=== PATIENT | female | born 1945 | race Caucasian/White ===

== ENCOUNTER 2016-11-25 05:25 | Inpatient (IN) | payer MEDICARE, OTHER ==
[2016-11-20 11:47] LABS: BASOPHILS 0.4 %; BASOPHILS ABSOLUTE 0.03 10/3/uL (0.0-0.16); EOSINOPHILS ABSOLUTE 0.14 10/3/uL (0.0-0.53); IMMATURE GRANULOCYTES 0.3 %; IMMATURE GRANULOCYTES ABSOLUTE 0.02 10/3/uL (0.0-0.11); LYMPHOCYTES 16.5 %; LYMPHOCYTES ABSOLUTE 1.14 10/3/uL (0.67-4.30); MEAN CORPUS HGB CONC 32.4 g/dL (32.0-36.0); MEAN CORPUSCULAR HEMOGLOB 27.7 pg (26.0-34.0); MEAN PLATELET VOLUME 9.1 fL (9.2-13.0); MONOCYTES 7.5 %; MONOCYTES ABSOLUTE 0.52 10/3/uL (0.21-1.20); NEUTROPHILS 73.3 %; NEUTROPHILS ABSOLUTE 5.05 10/3/uL (2.02-8.40); PLATELET COUNT 278 10/3/uL (150-400); RBC DISTRIBUTION WIDTH 15.9 % (12.0-16.0); WHITE BLOOD CELLS 6.9 10/3/uL (4.5-10.5)
[2016-11-20 11:48] LABS: HEMATOCRIT 35.5 % (36.0-48.0); HEMOGLOBIN 11.5 g/dL (12.0-16.0); MANUAL DIFF NO %; MEAN CORPUSCULAR VOLUME 85.5 fL (80-100); RED CELL COUNT 4.15 10/6/uL (4.0-5.6)
[2016-11-20 11:53] LABS: INTERNATIONAL NORMAL RATI 1.1 UNITS (-); PROTIME (NOT ORD) 14.2 SEC (12.0-14.5)
[2016-11-20 11:54] LABS: PARTIAL THROMBO TIME 38.8 SEC (22.5-37.2)
[2016-11-20 12:02] LABS: CHLORIDE, SERUM 97 MMOL/L (96-112); CO2 (CARBON DIOXIDE) 27 MMOL/L (24-34); CREATININE 0.57 MG/DL (0.55-1.02); GFR AFRICAN AMERICAN 108 ML/MIN (>=60); GFR NON AFRICAN AMERICAN 93 ML/MIN (>=60); POTASSIUM, SERUM 3.9 MMOL/L (3.5-5.3); SGOT(AST) 29 U/L (5-40); SGPT(ALT) 31 U/L (5-65); SODIUM, SERUM 134 MMOL/L (135-148); TOTAL BILIRUBIN 0.5 MG/DL (0-1.2)
[2016-11-20 12:03] LABS: A/G RATIO 0.8 (0.7-1.9); ALBUMIN 3.2 G/DL (3.5-5.0); ALKALINE PHOSPHATASE 105 U/L (45-117); BUN (BLOOD UREA NITROGEN) 7 MG/DL (6-23); CALCIUM, SERUM 8.7 MG/DL (8.5-10.4); GLOBULIN 3.8 G/DL (2.5-4.1); GLUCOSE, SERUM 162 MG/DL (60-99)
[2016-11-20 13:37] LABS: ASCORBIC ACID (UR NOT ORDER) NEG (NEG); BILIRUBIN, URINE NEGATIVE (NEG); KETONE, URINE NEGATIVE (NEG); LEUKOCYTE ESTERASE(NOT OR NEG (NEG); WBC (NOT ORDERED) (RFLEX) 1 (0-5)
--- NOTE | ~2016-11-25 | CN ---
Consultation Report [facility] [address] [place]. [address] NAME: ROSAMARIA RIDER : 45 STATUS : ADM IN PAT#: [id number] AGE: 71 ADM/REG DATE : 11/25/16 MR#: [id number] REPORT SERV DATE: 12/03/16 DICTATED BY: LEXIE HOUSTON DATE: 12/03/16 REPORT STATUS : Draft TRANSCRIBED BY: MODL DATE: 12/03/16 INFECTIOUS DISEASE CONSULTATION DATE OF CONSULTATION: 12/03/2016 MICU bed #9. REFERRING PHYSICIAN: Dr. Don Chacko. REASON FOR CONSULTATION: Sepsis. HISTORY OF PRESENT ILLNESS: This is a 71-year-old female, who was admitted to the hospital on 11/25/2016, for a surgical therapy of a pancreatic carcinoma. On that day, she underwent a pancreaticoduodenectomy of Whipple type along with portal vein resection and reconstruction due to involvement of the tumor with the portal vein and also underwent splenectomy and placement of a feeding jejunostomy. On the postoperative day 1, the patient developed hypotension and elevated procalcitonin, and after blood, urine, and sputum cultures were obtained, she was started on empiric antibiotic therapy with vancomycin and Zosyn. Her white blood cell count increased to 31,000. She then improved. Her vancomycin was stopped on 11/28/2016. She continued on Zosyn. She then worsened again over the past couple of days with hypotension again on 11/30/2016, and a marked increase in her procalcitonin to 17.8 yesterday along with acute kidney injury and worsening bandemia again. She also has developed shock and required institution of pressors and has developed worsening respiratory status, requiring Vapotherm oxygen administration. She remains on the Zosyn. Radiologic workup is as outlined below. The patient herself could not really contribute much to the history. She does easily awaken to the exam and to questioning and follows simple commands but most of my questions about symptoms, she gives no answers to. She does still have some abdominal pain. Finally her chest x-ray is much worse this morning in the left hemithorax. PAST MEDICAL HISTORY: Notable for the pancreatic cancer as mentioned, she received neoadjuvant chemo radiation therapy preoperatively. Other medical problems include a history of thyroidectomy for thyroid cancer, hysterectomy, breast lumpectomy with radiation therapy, diverticulitis with eventual sigmoid colectomy, hypertension, and cholecystectomy. ALLERGIES: INCLUDE CEFUROXIME WHICH CAUSED A RASH IN THE PAST. SHE ALSO IS INTOLERANT OF MEDROL AND DEMEROL. PRESENT MEDICATIONS: In addition to the Zosyn include Duragesic patch, subcutaneous heparin, Synthroid, Reglan, Protonix, Levemir, and she is on TPN. SOCIAL HISTORY: The patient is . Has a remote smoking history. Otherwise unremarkable. FAMILY HISTORY: Notable for diabetes, coronary artery disease, hypertension, and heart Consultation Report [place] [id number] [place]. [address] NAME: ROSAMARIA RIDER : 45 STATUS : ADM IN [facility]#: [id number] AGE: 71 ADM/REG DATE : 11/25/16 MR#: [id number] REPORT SERV DATE: 12/03/16 DICTATED BY: LEXIE HOUSTON DATE: 12/03/16 REPORT STATUS : Draft TRANSCRIBED BY: BENJAMIN DATE: 12/03/16 disease. REVIEW OF SYSTEMS: As outlined above, otherwise negative or difficult to obtain. PHYSICAL EXAMINATION: VITAL SIGNS: This patient is presently afebrile. Blood pressure on both vasopressin and Levophed has been variable but it was in the 120 systolic range at present, pulse 118 to 140, she is on Vapotherm as mentioned. She weighs 64 kg. HEAD AND NECK: Oral cavity shows no thrush. Neck is supple. LUNGS: She has bronchial type breath sounds in the left posterior lung car without crackles and some rhonchi anteriorly. CARDIAC: Tachycardic. Regular. Normal S1, S2. No murmur, gallop, or rub. ABDOMEN: Shows a large wound with a VAC dressing and the jejunostomy tube. Bowel sounds are reduced. The abdomen is perhaps minimally distended and soft but she is tender throughout. EXTREMITIES: The patient has a PICC line covered by a dressing without surrounding inflammation. Her lower extremities show trace edema. SKIN: Without rash. LABORATORY STUDIES: White blood cell count today is 17.7 with 28% bands. Hemoglobin 9.9, platelets 194, and creatinine 1.41, yesterday albumin was 1.7, bilirubin was 5.0, increased alkaline phosphatase at 167, increased ALT 84, and AST 48, both decreased from prior values. A 11/27/2016, pre-albumin 10.2. Microbiology studies: Blood cultures from 11/26/2016, negative. Sputum culture grew moderate Klebsiella oxytoca which was fairly sensitive. A 11/03/2016, urinalysis is negative. Chest x-ray, as mentioned, yesterday the patient had an abdominal ultrasound which was a limited study based on her dressings and bowel gas but showed no evidence of biliary dilatation. IMPRESSION: This patient has a sepsis picture following Whipple procedure on 10/25/2016, which also included portal vein resection and reconstruction and splenectomy. This is despite ongoing Zosyn therapy since 11/26/2016. Obviously there are number of a possible sources of sepsis. She does seem quite tender on abdominal exam and have to be concerned about a postoperative intraabdominal complication such as a developing abscess or infected hematoma. She did require a lot of blood products for the surgery. Her left chest looks much worse on x-ray today and is suggestive, I think, of possible mucous plugging with lobar collapse but obviously, she could have a developing pneumonia. The patient is on TPN via a PICC line and is at risk for line sepsis. PLAN: 1. We will get blood cultures. 2. Broaden antibiotics to vancomycin, meropenem, and micafungin. 3. We will discuss possible CT scan of the abdomen and pelvis with Dr. Quintero and follow with you. Consultation Report [address] [address] NAME: ROSAMARIA RIDER : 45 STATUS : ADM IN [facility]#: [id number] AGE: 71 ADM/REG DATE : 11/25/16 MR#: [id number] REPORT SERV DATE: 12/03/16 DICTATED BY: LEXIE HOUSTON DATE: 12/03/16 REPORT STATUS : Draft TRANSCRIBED BY: BENJAMIN DATE: 12/03/16 CHARLOTTE/BENJAMIN Lexie Houston M.D. / [id number] CC: Lilo Turner Jr., M.D.
--- NOTE | ~2016-11-25 | CN ---
Consultation Report [facility] [address] [place]. [address] NAME: ROSAMARIA RIDER : 45 STATUS : ADM IN PAT#: [id number] AGE: 71 ADM/REG DATE : 11/25/16 MR#: [id number] REPORT SERV DATE: 12/02/16 DICTATED BY: TOAN BETANCUR DATE: 12/02/16 REPORT STATUS : Draft TRANSCRIBED BY: MODL DATE: 12/02/16 NEPHROLOGY CONSULT DATE OF CONSULTATION: Ms. Rider is a 71-year-old white female, admitted for resection of pancreatic adenocarcinoma on 11/25/[address] Quintero with a Whipple procedure. Intraoperatively, she had some bleeding and Vascular Surgery assisting with the surgery. Apparently, she had 9 units of packed red blood cells and 4 units of fresh frozen plasma given intraoperatively in her long procedure, and came off on epinephrine and vasopressin. She has done well since then. Got extubated on 11/28, taking p.o. 11/29 but on the , her blood pressure dropped and required some normal saline boluses and restarted the Levophed. Creatinine since the , has gone up from 0.6 to 0.9 yesterday and 1.43 today, oliguric. PAST MEDICAL HISTORY: Thyroid resection resulting in hypothyroidism in 1993, hysterectomy in 1981, lumpectomy for breast cancer in 2013 and colon resection in 2014, having had a cholecystectomy in 2006. MEDICAL PROBLEMS: Prior to hospitalization were, hypertension where she is on medications and hypothyroidism on treatment also. Prior to this surgery, she had some chemotherapy. Dr. Garnett supervised her care, but no radiation therapy. SOCIAL HISTORY: Strong tobacco history in the past, but quit several years back. She is . FAMILY HISTORY: Positive for colon cancer in her brother. ALLERGIES: SHE HAS AN ALLERGY TO CEFTIN, DEMEROL, AND MEDROL DOSEPAKS. MEDICATIONS: At home prior to hospitalization were, aspirin, carvedilol, Colace, Lasix, levothyroxine, Ativan, Prilosec, Zofran, MiraLAX, Compazine, and Senokot. PHYSICAL EXAMINATION: GENERAL: The patient is seen in MICU bed 9. VITAL SIGNS: Blood pressure 117/49, heart rate of 128, respirations 22, temperature 98.2. She is arousable, but slow to respond, and not doing any purposeful movements. NG tube, on low intermittent suction, on Vapotherm high-flow oxygen by nasal cannula 100% FiO2. LUNGS: Working hard to breathe. Decreased breath sounds at the bases, but otherwise unremarkable. CARDIOVASCULAR: Grade 2/6 systolic ejection murmur radiating to the abdomen. She is tachycardic. ABDOMEN: Tender to palpation, distended and bowel sounds are absent. EXTREMITIES: 2+ edema in the feet with sequential compression devices on. NEUROLOGICAL: Moving all four extremities, but poorly responsive and not following commands. Consultation Report [facility] [address] [address] NAME: ROSAMARIA RIDER : 45 STATUS : ADM IN [facility]#: [id number] AGE: 71 ADM/REG DATE : 11/25/16 MR#: [id number] REPORT SERV DATE: 12/02/16 DICTATED BY: TOAN BETANCUR DATE: 12/02/16 REPORT STATUS : Draft TRANSCRIBED BY: MODL DATE: 12/02/16 LAB: Shows sodium 142; potassium 4.6; chloride 111; CO2 of 25; BUN is 69; creatinine 1.43; blood sugar was 196 this morning, at noon it was 216; calcium was 8.0; albumin 1.7; magnesium 2.1; phosphorus 2.9. Elevated liver enzymes noted. SGOT of 48, SGPT of 84, both improved since surgery. Alkaline phos climbing at 167, last night it was 2.9. INR 1.5 with [place] [address], hemoglobin 10, hematocrit 31, platelet count 216,000. Blood gases this morning revealed a pH of 7.41, pCO2 of 26, PO2 of 97 on 100% Vapotherm. ASSESSMENT: 1. Acute kidney injury secondary to hypotension. Suspect all prerenal. Cannot rule out acute tubular necrosis. Ultrasound to rule out obstruction pending. No nephrotoxic agents given, and has had significant NG aspiration today consistent with an ileus. 2. Hypotension shock, on pressors. Suspect secondary to sepsis, but cannot rule out intraabdominal bleed. 3. Pancreatic adenocarcinoma, resected by Whipple procedure on 11/25, Dr. Quintero. 4. See past medical history. PLAN: Continue IV fluids. Pressors as needed. Continue TPN. We will discuss the case with Dr. Chacko, the customer experience specialist. Thank you for consultation. WARREN/BENJAMIN Toan Betancur M.D. / [id number] CC: Lilo Turner Jr., M.D.
--- NOTE | ~2016-11-25 | OP ---
Record Of Operation [facility] [address] [place]. [address] NAME: ROSAMARIA RIDER : 45 STATUS : ADM IN PAT#: [id number] AGE: 71 ADM/REG DATE : 11/25/16 MR#: [id number] REPORT SERV DATE: 11/26/16 DICTATED BY: TRU DOUGLAS JR. DATE: 11/25/16 REPORT STATUS : Draft TRANSCRIBED BY: MODL DATE: 11/25/16 DATE OF PROCEDURE: 11/25/2016 SURGEON: Tru Douglas MD RADIO ASSEMBLER: Talha Bella. PROCEDURES: Pancreaticoduodenectomy of the Whipple type; portal vein resection and reconstruction (Dr. Lozano), splenectomy, and feeding jejunostomy tube placement. PREOPERATIVE DIAGNOSIS: Carcinoma of the pancreas. POSTOPERATIVE DIAGNOSIS: Carcinoma of the pancreas. ANESTHESIA: General. INDICATIONS: This patient has had a diagnosis of carcinoma of the pancreas. It was locally advanced. She received neoadjuvant chemoradiation therapy with significant reduction in size of the tumor and apparent regression from the superior mesenteric vein. There was no evidence of any metastatic disease and exploration for resection was indicated. FINDINGS: On exploration of the abdomen, there were some adhesions. Within the abdomen, there was previous cholecystectomy. There was no evidence of any peritoneal or hepatic metastasis. There was inflammation and contraction in the area of the head of the pancreas. During the initial dissection, there was some firmness present at the distal common bile duct and biopsy confirmed adenocarcinoma. However, this was within the dissection field. Ultimately, clear plane was identified anterior to the portal and superior mesenteric veins and the resection proceeded after division of the pancreas at the neck. It was apparent that there was persistent adherence and involvement of the vein. Therefore, a resection of the superior mesenteric vein, splenic vein confluence, and portion of portal vein was undertaken. This was done in conjunction with Dr. Lozano and he also performed the reconstruction. This enabled resection of all gross tumor. The gross close margin was uncinate, but this was taken off the adventitia of the superior mesenteric artery. Frozen section of common bile duct and pancreatic margins were negative. Reconstruction was undertaken. Because the splenic vein was ligated and the spleen became congested, it was removed. The feeding J-tube was placed. No other significant findings were encountered. The patient did have significant blood loss from the procedure and did receive blood products with packed blood cells, FFP, and platelets. There did appear to be at least some coagulopathy at the conclusion of the procedure. The patient was taken to recovery room for further stabilization. DESCRIPTION OF PROCEDURE: With adequate general anesthesia, the patient was placed in supine position. The abdomen was then prepped and draped sterilely. A bilateral subcostal incision was made. The dissection was carried down sharply through the subcutaneous tissues. The fascia and peritoneum were opened. The peritoneal cavity was entered, and the above-noted findings were encountered. The gastroduodenal ligament was dissected to Record Of Operation [place] [id number] [place]. [address] NAME: ROSAMARIA RIDER : 45 STATUS : ADM IN PAT#: [id number] AGE: 71 ADM/REG DATE : 11/25/16 MR#: [id number] REPORT SERV DATE: 11/26/16 DICTATED BY: TRU DOUGLAS JR. DATE: 11/25/16 REPORT STATUS : Draft TRANSCRIBED BY: MODHiwot DATE: 11/25/16 identify the gastroduodenal artery. This was clamped and divided securing with looped suture ligatures of silk and then the clear plane was identified anterior to the portal vein. It was noted some tissue from the superior portion of the pancreas was biopsied to confirmed carcinoma. Then, the common bile duct was dissected and encircled with a loop. The gastrocolic omentum was divided, and the mesenteric branches were traced back to the SMV, where again a clear plane was identified. It was elected to proceed with a Whipple. The jejunum was divided distally to ligament of Treitz. This was done with a MAYDA-75. Then, the mesentery was clamped and divided to free up the proximal jejunum and the fourth portion of the duodenum. This was reflected to the patient's right side. Then, the gastrocolic tissues were divided up to greater curve of the stomach and the lesser curves material as well. The stomach was divided at the antral level. Then, the pancreas was divided at its neck. The common bile duct was divided as well. The specimen was reflected to the patient's right. Small branches were divided and secured with ligatures of silk and then there was apparent involvement of the vein, as it actually had some tearing, as attempts were made to reflect it off the vein. Therefore, the vein was controlled proximally and distally and the splenic vein was clamped and resection of this was undertaken. Remaining tissue in the uncinate region was dissected off the superior mesenteric artery and this was then removed as the specimen that was submitted to pathology as noted. Then, the portal vein reconstruction was performed. Bleeding was controlled with suture ligatures of silk as needed. Then, a rent in the transverse mesocolon was made, and the jejunum was brought up for the anastomoses. A pancreaticojejunostomy was created as an end-to-side fashion with an inner layer of interrupted 5-0 Prolene and outer layer of inverted 3-0 silk sutures. This was done over a 5-Egyptian pediatric feeding tube. A choledochojejunostomy was performed with a running 4-0 Prolene and then distal to this, the bowel was brought out through a separate defect in the mesocolon and a gastrojejunostomy was created with end-to-side anastomosis with inner running 3-0 Vicryl and outer interrupted 3-0 silk. The lesser curve side of the stomach was partially closed off. Then distal to this, a feeding J-tube was placed utilizing 16-Egyptian T-tube was placed. Feeding jejunostomy was secured with pursestring suture. It was brought out through the left-sided stab incision. The bowel was and the perineum was sutured with 3-0 silk. The tube was secured to the site with 2-0 nylon. Two #19 Antonio drains were left, one on the side of the hepatic space on the right and one from the left, it was left inferior to the pancreatic anastomosis as irrigated. Additional hemostasis was assured with Surgicel and Surgiflo. Then with the satisfactory hemostasis, stabilization of the patient, the wound was closed with two layers of running 3-0 PDS. [place] and an overlay negative pressure dressing. The patient left the operating room in critical condition. Estimated blood loss was 2750. She is to complete receiving FFP and platelets in the recovery room. Additionally during the procedure, the spleen was removed as noted. It was mobilized from its peritoneal attachments and hilar vessel was clamped, divided along the lesser short gastrics and these were also controlled with ligatures and suture ligatures of silk. JG/MODL Tru Douglas Record Of Operation [facility] [address] [place]. [address] NAME: ROSAMARIA RIDER : 45 STATUS : ADM IN PAT#: [id number] AGE: 71 ADM/REG DATE : 11/25/16 MR#: [id number] REPORT SERV DATE: 11/26/16 DICTATED BY: TRU DOUGLAS JR. DATE: 11/25/16 REPORT STATUS : Draft TRANSCRIBED BY: BENJAMIN DATE: 11/25/16 Lilo Centeno / [id number] CC: Lilo Turner Jr., M.D.
--- NOTE | ~2016-11-25 | CN ---
Consultation Report [facility] [address] [place]. [address] NAME: ROSAMARIA RIDER : 45 STATUS : ADM IN [facility]#: [id number] AGE: 71 ADM/REG DATE : 11/25/16 MR#: [id number] REPORT SERV DATE: 01/21/17 DICTATED BY: TANJA ACEVEDO DATE: 01/21/17 REPORT STATUS : Draft TRANSCRIBED BY: MODHiwot DATE: 01/21/17 CONSULTATION DATE OF CONSULTATION: 01/21/[address] Quintero. REASON FOR CONSULTATION: Medical management of this patient including managing hypothyroidism and abnormal TSH. HOSPITAL COURSE: Ms. Rosamaria Rider is a 71-year-old patient, who has been hospitalized for several weeks now. Her date of admission is actually 11/25/2016. She has been here since November and essentially it appears that she was admitted for Whipple's procedure of the pancreas for pancreatic cancer. She underwent Whipple surgery on 11/25/2016. The patient had a complicated course after that and ended up with acute respiratory failure and had to be intubated. The patient also went into septic shock, and acute renal failure, and acute hypoxic respiratory failure as stated above. The patient was given supportive care and stabilized and eventually extubated. The patient then appears to have improved since. Currently, the reason that I am being consulted is for medical management and also for abnormal TSH and thyroid swelling. The patient has had multiple issues and I will go ahead and enlist all her issues in my assessment and plan which is coming up. Right now, the patient seems to be quite comfortable. She is able to communicate some, even though she is somewhat lethargic. She denies any pain anywhere. She even denies abdominal pain. She does say that she has a little difficulty breathing and calls herself a mouth breather. However, she states that since she has had the procedure, namely thoracentesis with removal of some fluid from her lungs, her breathing is better today. All history was obtained either from [facility] system or some from family members too. At this time, review of systems is essentially negative for any pain anywhere, shortness of breath, nausea, vomiting. PAST MEDICAL HISTORY: Medical history so far is significant for: 1. History of pancreatic cancer, status post Whipple surgery, status post acute respiratory failure, for which the patient was intubated and then subsequently extubated. 2. History of recent septic shock, which is resolved. 3. Acute encephalopathy which somewhat continues to persist even now, but apparently seems to have improved. 4. Acute blood loss anemia from recent surgery, which is resolving at this time. 5. Also, bilateral breast cellulitis which is probably the source for her sepsis according to ID, for which she is on meropenem, vancomycin, and Dr. Houston ID specialist is following. Consultation Report [facility] [id number] [place]. [address] NAME: ROSAMARIA RIDER : 45 STATUS : ADM IN PAT#: [id number] AGE: 71 ADM/REG DATE : 11/25/16 MR#: [id number] REPORT SERV DATE: 01/21/17 DICTATED BY: TANJA ACEVEDO DATE: 01/21/17 REPORT STATUS : Draft TRANSCRIBED BY: BENJAMIN DATE: 01/21/17 HOME MEDICATIONS: At this time while in the hospital were noted and most significant one at this time include IV vancomycin, IV meropenem for sepsis and leukocytosis from likely breast cellulitis at this time. Blood cultures however have been negative. The source could also have been an abdominal source, could have also been urinary source. Urine cultures at this time are pending. The patient already is on levothyroxine 100 mcg via the feeding tube every day. The patient is also on cardiac medications like Coreg 6.25 mg via feeding tube twice a day. FAMILY HISTORY: Noted. SOCIAL HISTORY: The patient is a nonsmoker, nonalcoholic, no history of illicit drug use. Immediate family including and sisters who are at bedside. PHYSICAL EXAMINATION: GENERAL: On examination, the patient is lethargic, but able to be aroused and is able to answer some of my questions fairly appropriately. Please see above. VITAL SIGNS: Show that she is febrile with a temperature of 101 yesterday around the evening time, but then she is afebrile this morning. Her blood pressure is 107/56, pulse is about 96 per minute, and respiratory rate about 20 per minute. NECK: On exam, the patient does have swelling in the neck area and other than an enlarged thyroid causing neck swelling, I could not appreciate any JVD. CARDIOVASCULAR SYSTEM: S1, S2 appreciated. Tachycardia noted. I could not appreciate any murmurs or rubs. RESPIRATORY SYSTEM: Essentially clear lungs, but poor air entry noted to lung bases probably from poor respiratory effort. I could not appreciate any rales or rhonchi that were significant. ABDOMEN: The patient has had extensive abdominal surgery. The patient has a J-tube for feeding in place and is getting tube feeds currently. The patient also has right-sided drain in place probably from a recent drainage of an abdominal abscess. Bowel sounds are sluggish, but appreciated. Other than that, there is no other significant guarding in the abdominal area. Overall, abdomen is tender, so deep palpation was not attempted. EXTREMITIES: Bilateral 1+ pedal edema noted. Also, was noted left upper extremity swelling. LABORATORY DATA: Her labs at this time showed that her sodium is 131, potassium is now at 3.9, BUN is 12, creatinine is 0.3. WBC count is 25.5, hemoglobin 7.7, hematocrit 22.4, and platelet count of 431. Procalcitonin is elevated at 0.6. Albumin is low. CT scan of the neck shows thyroid nodules. ASSESSMENT AND PLAN: My assessment and plan is as follows. At this time, my assessment is chronic hypothyroidism from previous MUNROE ablation of the thyroid for thyroid cancer in the past according to family-I am not sure if the abnormal TSH that is found today on 01/21/2017 with TSH being 35.3 is true lab value, hence we will repeat TSH, free T3 and T4. Even if Consultation Report [address] [place]. [address] NAME: ROSAMARIA RIDER : 45 STATUS : ADM IN [facility]#: [id number] AGE: 71 ADM/REG DATE : 11/25/16 MR#: [id number] REPORT SERV DATE: 01/21/17 DICTATED BY: TANJA ACEVEDO DATE: 01/21/17 REPORT STATUS : Draft TRANSCRIBED BY: MODL DATE: 01/21/17 TSH is abnormal, we will very slowly increase levothyroxine and probably keep her on 125 mcg a day at this time as the patient has high metabolic demand at this time. She has septic with tachycardia and other comorbidities, hence drastic increase in levothyroxine is not advisable at this time. 1. Sepsis from questionable breast abscess bilaterally, ID is following. The patient is on IV Merrem and vancomycin. Blood cultures so far is negative. Urine culture is pending. 2. Anasarca from decreased albumin or hypoalbuminemia from very poor nutrition-the patient is on tube feeds right now. 3. History of pancreatic cancer, status post Whipple procedure and other extensive abdominal surgery after a complicated Whipple's. The patient had to have vascular surgery for venous bypass in the abdominal area, had to have a J-tube for feeding purposes and also has right-sided drain in place probably to drain an abscess at this time, which is not draining anymore. Dr. Quintero, the surgeon is the primary on this case. 4. Acute encephalopathy from all above issues-we will follow as it looks like this is resolving at this time. We will follow the patient. Thank you for the consult. CONNOR/NIHARIKAL Tanja Acevedo M.D. / [id number] CC: Lilo Turner Jr., M.D.
--- NOTE | ~2016-11-25 | IDS ---
Interim Discharge Summary [facility] [address] [place]. [address] NAME: ROSAMARIA RIDER : 45 STATUS : ADM IN PAT#: [id number] AGE: 71 ADM/REG DATE : 11/25/16 MR#: [id number] REPORT SERV DATE: 12/06/16 DICTATED BY: TEO CHACKO DATE: 12/06/16 REPORT STATUS : Draft TRANSCRIBED BY: MODL DATE: 12/06/16 ADMISSION DATE: 11/25/2016 DISCHARGE DATE: INTERIM DIAGNOSES: 1. Pancreatic cancer status post Whipple surgery on 11/25/2016. 2. Acute hypoxic respiratory failure. 3. Septic shock. 4. Acute renal failure. 5. Acute encephalopathy. 6. Type 2 diabetes. 7. Acute blood loss anemia. ICU COURSE: Please see the dictated H and P for full patient presentation and history. BRIEF SUMMARY: The patient is a 71-year-old female with past medical history of pancreatic cancer, who underwent a Whipple surgery by Dr. Quintero on 11/25/2016, which was complicated by erosion into the portal vein, and significant bleeding during the surgery. The patient was then transferred postoperatively, intubated on vasopressors in the MICU, and on Dr. Quintero's service on 11/25/2016. We were then consulted for medical management at that time. The patient was weaned off the ventilator and vasopressors, and was extubated, and then I took over care of the patient on 12/02/2016. Since I took over care for her at the beginning of the week, her hospital course this week has been complicated by acute hypoxic respiratory failure, septic shock, acute renal failure, and acute encephalopathy. 1. Acute hypoxic respiratory failure. The patient initially did well post extubation. However, at the beginning of the week, on 12/02/2016, the patient started having a decline in her respiratory status. Her chest x-ray at that time was showing low lung volumes, and significant atelectasis. She also had worsening mentation at that time, she had a very poor cough, was very weak, and all of these likely were and are continuing to contribute to her respiratory failure. She has been on Vapotherm all week, and still remains at high FiO2 and high flow on that, and had a very tenuous respiratory status. We are doing an aggressive pulmonary toilet with vibration percussion as well as EzPAP, incentive spirometry as much as she will participate with her mental status. She has had a very low threshold to intubate, and will do so should her respiratory status decline further. Today, her chest x-ray looks like she had some worsening pulmonary edema, so I am going to give her some diuresis today as well. She remains critically ill from a respiratory standpoint, and again could decline, suddenly require intubation. 2. Septic shock. For most of the week, the patient was on both Levophed and vasopressin. Likely, this was secondary to septic shock from an intraabdominal source. We repeated a CT scan several days ago it showed several fluid collections likely representing anastomotic leaks with infection, and the patient had three MADISYN drains placed on 12/04/2016 by Interventional Radiology. Following placement of the MADISYN drains, she has had improvement in her shock, has been able to be weaned off both of her vasopressors as of today. She remains on empiric antibiotics and currently is growing abundant gram- negative rods. Her surgical cultures; ID follows along and is helping manage her Interim Discharge Summary [address] [address] NAME: ROSAMARIA RIDER : 45 STATUS : ADM IN [facility]#: [id number] AGE: 71 ADM/REG DATE : 11/25/16 MR#: [id number] REPORT SERV DATE: 12/06/16 DICTATED BY: TEO CHACKO DATE: 12/06/16 REPORT STATUS : Draft TRANSCRIBED BY: MODL DATE: 12/06/16 antibiotics, and she appreciates their insistence and will follow up on her surgical cultures. 3. Acute renal failure. Renal has been following and assisting in her management. The patient developed acute renal failure back at the beginning of the week, likely secondary to her shock. She has managed to avoid dialysis and has good urine output, and the creatinine has returned back to baseline. They continue to follow along with us as well. 4. Acute encephalopathy. The patient had waxing and waning of her mental status all week, likely this represents delirium secondary to her sepsis. We continue to monitor this, currently she is not on any medication for that as she has not been agitated at all. Currently, she is protecting her airway, but should her mental status decline further again, I would have a low threshold to intubate the patient. 5. The patient remains critically ill, and on the Surgery Service. We continue to follow along from a critical care standpoint and assist with management. The oncoming president [place] tomorrow we will take over in consultation. Please call if you have any questions. DAVIDSON/BENJAMIN Teo Chacko MD / [id number] CC: Lilo Turner Jr., M.D.
--- NOTE | ~2016-11-25 | DS ---
Discharge Summary [facility] [address] [place]. [address] NAME: ROSAMARIA RIDER : 45 STATUS : DIS IN PAT#: [id number] AGE: 71 ADM/REG DATE : 11/25/16 MR#: [id number] REPORT SERV DATE: 01/29/17 DICTATED BY: TRU DOUGLAS JR. DATE: 01/28/17 REPORT STATUS : Draft TRANSCRIBED BY: MODHiwot DATE: 01/28/17 ADMISSION DATE: 11/25/2016 DISCHARGE DATE: 01/28/2017 DIAGNOSES: 1. Pancreatic carcinoma. 2. Type 2 diabetes mellitus. 3. Acute kidney injury. 4. Hyponatremia. 5. Abdominal abscess. 6. Hypothyroidism. 7. Cellulitis. DISPOSITION: [facility] FOLLOWUP: Followup appointment with Dr. Douglas. DISCHARGE MEDICATIONS: Listed in the discharge MAR. PROCEDURES DURING ADMISSION: 1. Pancreaticoduodenectomy of the Whipple type with portal vein reconstruction 11/25/2016. 2. Multiple drain placements. HISTORY AND HOSPITAL COURSE: This is a 71-year-old female. She had a history of a locally advanced carcinoma of pancreas. She was treated with neoadjuvant chemoradiation therapy. She did have an acceptable response and it was felt that she had gone from unresectable to a potential resectable tumor. She is admitted for surgery and underwent exploration. She did have a large tumor. She did require portal vein resection, and she had reconstruction with Dr. Lozano. Her postoperative course was remarkable for hypotension, acute blood loss anemia for which required transfusion of blood products, platelets. She did have stabilization in the ICU and then after several days was able to be extubated and have her hemodynamic support decreased. Pathology did show residual carcinoma but negative margins, and all nodes were negative. She then did develop requirement for NG tube because of gastroparesis and gastric distention and ultimately, she developed intraabdominal fluid collection which required percutaneous drainage and IV antibiotics placement. This ultimately was confirmed to be secondary to leak from the J-tube site. J-tube was replaced, and this ceased the start of the origin of the leak and ultimately this was able to be completely drained and removed. She had again some acute kidney injury but her renal function improved without need for dialysis. She then did develop mild encephalopathy which actually responded to intensification of her hypothyroid replacement, and she actually was found to have an elevated TSH which was improved. Then within the last week, she developed cellulitis of the chest wall which improved with systemic antibiotics. There was no evidence of any abscess, and she was maintained on TPN initially. With the problems of the J-tube, she was not able tolerate J-tube feedings but was able to tolerate a diet with nutritional supplements at the time of discharge. She is also participating in physical therapy with plans to continue, lab work was acceptable and again all drains had been removed. The wound was healing well. Discharge Summary [address] [address] NAME: ROSAMARIA RIDER : 45 STATUS : DIS IN PAT#: [id number] AGE: 71 ADM/REG DATE : 11/25/16 MR#: [id number] REPORT SERV DATE: 01/29/17 DICTATED BY: TRU DOUGLAS JR. DATE: 01/28/17 REPORT STATUS : Draft TRANSCRIBED BY: BENJAMIN DATE: 01/28/17 Plan will be to follow up with me in approximately two weeks. We will maintain medications and plan oncologic followup in the future. DICTATED BY: Lilo Turner Jr./BENJAMIN Tru Douglas Jr., M.D. / [id number] CC: Lilo Turner Jr., M.D.
--- NOTE | ~2016-11-25 | OP ---
Record Of Operation [facility] [address] [place]. [address] NAME: ROSAMARIA RIDER : 45 STATUS : ADM IN PAT#: [id number] AGE: 71 ADM/REG DATE : 11/25/16 MR#: [id number] REPORT SERV DATE: 11/30/16 DICTATED BY: NINO LOZANO DATE: 11/29/16 REPORT STATUS : Draft TRANSCRIBED BY: MODL DATE: 11/29/16 DATE OF PROCEDURE: 11/25/2016 PREPROCEDURE DIAGNOSIS: Pancreatic cancer. POSTOPERATIVE DIAGNOSIS: Pancreatic cancer. PROCEDURE PERFORMED: 1. Whipple procedure (David Quintero M.D.). 2. Ligation of the proximal portal vein, distal superior mesenteric vein, distal splenic vein with 6 mm PTFE, superior mesenteric vein to portal vein bypass. CO-SURGEON/CONSULT: Nino Lozano M.D. ANESTHESIA: General. COMPLICATIONS: None. INDICATION FOR PROCEDURE: Secondary to this 71-year-old female found to be undergoing a Whipple procedure by Dr. David Quintero with compromise of the portal vein and distal superior mesenteric vein and distal splenic vein secondary to tumor. Vascular consultation was called for by Dr. Quintero and I was available for intraoperative consultation. After scrubbing into the operation, Dr. Quintero caught me upon the region of concerns and anatomy in the operation that was already in process. It was clear that the tumor was involved in the confluence between the superior mesenteric vein and the splenic vein leading into the portal vein. Secondary to this, the anterior aspect of the splenic vein was opened and bleeding was controlled with a small clamp. It was felt that this vessel was divided by ligating the structure in a running continuous stitch after this from the portal and superior mesenteric vein. With this controlled, attention was then brought down to the distal superior mesenteric vein which was dissected free from the tumor as well as the portal vein. Clamps were then placed and then the veins were then divided leaving the last portion of the Whipple excision to be completed by Dr. Quintero. At this point, the tumor was out of away, bleeding was controlled with clamps, and it was felt that a bypass was likely in order. Despite mobilization, the veins were not able to be brought too close enough together to perform an anastomosis without tension. Therefore, a 6 mm PTFE graft was then brought on to the field beveled and was then attached to the portal vein with a 6-0 Prolene on a running continuous stitch. The graft was then looped and then brought back to the superior mesenteric vein and this was then attached end-to-end anastomosis with again 6-0 Prolene. With this completed, the anastomosis was found and there was excellent flow through the bypasses by Doppler assessment and the valve was then decompressed significantly and returned to more normal state. At this point, there was no further bleeding from the splenic vein. The vascular reconstruction was completed, and at this point, Dr. Quintero returned to the operating room for completion of the remainder of the Whipple procedure. Please see his note for complete information regarding this operation. Record Of Operation [address] [place]. [address] NAME: ROSAMARIA RIDER : 45 STATUS : ADM IN PAT#: [id number] AGE: 71 ADM/REG DATE : 11/25/16 MR#: [id number] REPORT SERV DATE: 11/30/16 DICTATED BY: NINO LOZANO DATE: 11/29/16 REPORT STATUS : Draft TRANSCRIBED BY: BENJAMIN DATE: 11/29/16 CL/BENJAMIN Nino Lozano M.D. / [id number] CC: Lilo Turner Jr., M.D.
--- NOTE | ~2016-11-25 | CN ---
Consultation Report [facility] [address] [place]. [address] NAME: ROSAMARIA RIDER : 45 STATUS : ADM IN PAT#: [id number] AGE: 71 ADM/REG DATE : 11/25/16 MR#: [id number] REPORT SERV DATE: 11/25/16 DICTATED BY: ISAK ONEIL DATE: 11/25/16 REPORT STATUS : Draft TRANSCRIBED BY: MODL DATE: 11/25/16 CONSULTATION DATE OF CONSULTATION: 11/25/2016 HISTORY OF PRESENT ILLNESS: This is a 71-year-old patient, whom I was asked to see by Dr. Quintero for postoperative critical care management. 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 She underwent ERCP, had a stent placed, and then had a port placed by Dr. Quintero on 05/31 and is currently status post chemotherapy. She was thought to have a resectable tumor since it was shown that it had decreased in size by CT scan and went to the OR today for a Whipple procedure. 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 Hemoglobin was as low as 6.0. She was then further observed in the recovery unit and bleeding continued and that is where the platelets were given. She remains on the ventilator and is on vasopressin and epinephrine and currently is being transported to the unit for further care. ALLERGIES: HER ALLERGIES ARE TO STEROIDS, DEMEROL, CEFTIN, AND MEDROL. MEDICATIONS: Her medications at home are carvedilol, Prilosec, Lasix, Zofran, Ativan, enteric-coated aspirin, levothyroxine, Colace, senna, MiraLAX, and Compazine. PAST MEDICAL HISTORY: 1. Thyroidectomy for thyroid cancer, now currently on Synthroid. 2. Status post hysterectomy. 3. Status post right breast lumpectomy, followed by XRT by radiation therapy. 4. Diverticulitis that was recurrent and eventual sigmoid colectomy that was done in 2014. 5. Hypertension. 6. Status post cholecystectomy. 7. Status post bunionectomy. 8. History of severe constipation and recent admission for stercoral ulcer, in 10/2016. FAMILY HISTORY: Remarkable for diabetes, coronary artery disease, hypertension, and stroke. . Her father of heart disease and there is a very strong family history of CHF as well as diabetes mellitus. SOCIAL HISTORY: She is . Lives at home with her family and has had a remote history of smoking at least a pack a day x12 years. The patient has also history of lower extremity DVT, that is remote. REVIEW OF SYSTEMS: Could not be obtained from the patient since she is orally intubated and sedated. Consultation Report [facility] [address] [place]. [address] NAME: ROSAMARIA RIDER : 45 STATUS : ADM IN [facility]#: [id number] AGE: 71 ADM/REG DATE : 11/25/16 MR#: [id number] REPORT SERV DATE: 11/25/16 DICTATED BY: ISAK ONEIL DATE: 11/25/16 REPORT STATUS : Draft TRANSCRIBED BY: BENJAMIN DATE: 11/25/16 PHYSICAL EXAMINATION: VITAL SIGNS: Current vital signs, blood pressure by arterial line is 104/64, heart rate is 90, respiratory rate is 27. GENERAL: The patient appears pale. She has a Marcelo Hugger in place. SKIN: Cool to touch. HEENT: Pupils are sluggishly reactive. Sclerae anicteric. Conjunctivae are pale. Nasal mucosa is within normal limits. Oral mucosa is intubated with an OG tube. She has a right internal jugular triple-lumen catheter, left subclavian port, left radial A-line. LUNGS: Diminished, but without wheezing or crackles. CARDIAC: Reveals a regular rate and rhythm with no significant murmurs. BREASTS: Symmetrical. ABDOMEN: Obese with a transverse abdominal scar with a MADISYN drain in place as well as a wound VAC in place. No bowel sounds are heard. RECTAL: Deferred. GENITAL: Deferred. [place] is in place. EXTREMITIES: Without cyanosis, clubbing. There is trace edema. NEUROLOGIC: Limited to sedation, and currently is not able to be evaluated. DIAGNOSTIC DATA: Chest x-ray shows good placement of the endotracheal tube and central line without evidence of pneumothorax. White cell count is 20,000, hemoglobin 10, hematocrit 30, platelet count is 24,000. INR is 2.1. Sodium 151, potassium 4.4, chloride 104, bicarb 33, BUN 7, creatinine 0.84, blood sugar 156, magnesium 1.6. ABG shows a pH of 7.28, a pCO2 of 29, a pO2 of 479, and bicarbonate of 13. ASSESSMENT AND PLAN: This is a 71-year-old patient with recent diagnosis of pancreatic head tumor, status post ERCP, stent placement, chemotherapy and now Whipple with a finding of invasion of tumor into the portal vein, which resulted in bleeding during the surgery necessitating blood, fresh frozen plasma, and platelet transfusion. The patient is in critical condition, remains on epinephrine and Levophed. The plan will be to transfer the patient to the ICU, check serial H and H's, and lab work throughout the night. We will check a lactic acid level, cortisol level, an ABG again. Overall, the patient's condition is critical and she is at risk for acute kidney injury, further bleeding and DIC. She currently is in hemorrhagic shock and will require close monitoring throughout the night. Prognosis is extremely guarded and her care will involve close vasoactive manipulation, volume resuscitation, frequent ventilator manipulation, hemodynamic assessment, neurologic monitoring and treatment. So, the patient currently is in circulatory shock at risk for hepatic failure, renal failure, and respiratory failure. Total critical care time for this patient was one hour, starting at 04:00 p.m. to 05:00 p.m., total time is 60 minutes. /MODL Consultation Report [address] [address] NAME: ROSAMARIA RIDER : 45 STATUS : ADM IN [facility]#: [id number] AGE: 71 ADM/REG DATE : 11/25/16 MR#: [id number] REPORT SERV DATE: 11/25/16 DICTATED BY: ISAK ONEIL DATE: 11/25/16 REPORT STATUS : Draft TRANSCRIBED BY: BENJAMIN DATE: 11/25/16 Isak Oneil M.D. / [id number] CC: David Lilo Quintero Jr., M.D.
[~2016-11-25 05:25] MED LIST: ASAB PO; ATV1 PO; AUG875 PO; BENTYL20 PO; CALTRA600D PO; COMP10B PO; COREG12 PO; COREG6 PO; DSS PO; EASY IRON PO; FLONASE NAS; FLORASTOR250 MG PO; HALF81 PO; HYOMAX-SL0.125 MG PO; KLOR-CON 1010 MEQ PO; L20 PO; LEVOTHYROXIN100 MCG PO; MIRALAX POWDER1 PKT PO; NORCO1 TAB PO; PCET PO; PENTOXIL400 MG PO; PR25 PO; PRILO PO; PRILOSEC40 MG PO; SENTAB PO; SYN075 PO; SYN1 PO; VITE PO; ZOFRAN ODT4 MG PO; ZOFRANODT8 PO
[2016-11-25 11:49] LABS: BE (BASE EXCESS) -11.2 MEQ/L (0 +/- 2.5); CARBOXYHEMOGLOBIN 1.1 % (0-3); HCO3 (ACTUAL BICARBONATE) 14.6 MEQ/L (23-27); HEMOBLOGIN CONTENT 7.5 G/DL (12-16); INSTRUMENT SERIAL # 11843; METHEMOGLOBIN 0.8 % (0-3); O2 CONTENT 11.3 VOL% (18-24); PCO2 (CO2 TENSION) 32 MMHG (35-45); PO2 (O2 TENSION) 380 MMHG (79-93); SAMPLE Arterial; pH 7.27 (7.37-7.43)
[2016-11-25 13:57] LABS: BE (BASE EXCESS) -6.2 MEQ/L (0 +/- 2.5); CARBOXYHEMOGLOBIN 0.3 % (0-3); HCO3 (ACTUAL BICARBONATE) 19.8 MEQ/L (23-27); HEMOBLOGIN CONTENT 12.1 G/DL (12-16); INSTRUMENT SERIAL # 11843; METHEMOGLOBIN 0.6 % (0-3); O2 CONTENT 17.9 VOL% (18-24); PCO2 (CO2 TENSION) 41 MMHG (35-45); PO2 (O2 TENSION) 464 MMHG (79-93); SAMPLE Arterial; pH 7.31 (7.37-7.43)
[2016-11-25 14:25] LABS: HEMATOCRIT 37.7 % (36.0-48.0)
[2016-11-25 14:31] LABS: BE (BASE EXCESS) -6.2 MEQ/L (0 +/- 2.5); CARBOXYHEMOGLOBIN 0.3 % (0-3); HCO3 (ACTUAL BICARBONATE) 19.8 MEQ/L (23-27); HEMOBLOGIN CONTENT 12.1 G/DL (12-16); INSTRUMENT SERIAL # 11843; METHEMOGLOBIN 0.6 % (0-3); O2 CONTENT 17.9 VOL% (18-24); PCO2 (CO2 TENSION) 41 MMHG (35-45); PO2 (O2 TENSION) 464 MMHG (79-93); SAMPLE Arterial; pH 7.31 (7.37-7.43)
[2016-11-25 16:13] LABS: INSTRUMENT SERIAL # 11843; PCO2 (CO2 TENSION) 29 MMHG (35-45); pH 7.28 (7.37-7.43)
[2016-11-25 16:14] LABS: BE (BASE EXCESS) -12.1 MEQ/L (0 +/- 2.5); CARBOXYHEMOGLOBIN 0.3 % (0-3); HCO3 (ACTUAL BICARBONATE) 13.1 MEQ/L (23-27); HEMOBLOGIN CONTENT 14.1 G/DL (12-16); METHEMOGLOBIN 0.5 % (0-3); MODE CMV; O2 CONTENT 20.8 VOL% (18-24); OPERATOR ID 19104; PO2 (O2 TENSION) 479 MMHG (79-93); SAMPLE Arterial; TIDAL VOLUME 500 ML
[2016-11-25 16:40] LABS: BASOPHILS 0 %; BASOPHILS ABSOLUTE 0.01 10/3/uL (0.0-0.16); EOSINOPHILS 0 %; EOSINOPHILS ABSOLUTE 0.01 10/3/uL (0.0-0.53); HEMOGLOBIN 10.8 g/dL (12.0-16.0); IMMATURE GRANULOCYTES 0.6 %; IMMATURE GRANULOCYTES ABSOLUTE 0.13 10/3/uL (0.0-0.11); LYMPHOCYTES ABSOLUTE 0.63 10/3/uL (0.67-4.30); MEAN CORPUSCULAR HEMOGLOB 29.8 pg (26.0-34.0); MEAN PLATELET VOLUME 8.6 fL (9.2-13.0); MONOCYTES 7.6 %; MONOCYTES ABSOLUTE 1.58 10/3/uL (0.21-1.20); NEUTROPHILS 88.8 %; RBC DISTRIBUTION WIDTH 14.1 % (12.0-16.0); RED CELL COUNT 3.63 10/6/uL (4.0-5.6)
[2016-11-25 16:49] LABS: BUN (BLOOD UREA NITROGEN) 7 MG/DL (6-23); CHLORIDE, SERUM 104 MMOL/L (96-112); CREATININE 0.84 MG/DL (0.55-1.02); GFR AFRICAN AMERICAN 81 ML/MIN (>=60); GFR NON AFRICAN AMERICAN 70 ML/MIN (>=60); GLUCOSE, SERUM 156 MG/DL (60-99); POTASSIUM, SERUM 4.4 MMOL/L (3.5-5.3)
[2016-11-25 16:51] LABS: CALCIUM, SERUM 6.8 MG/DL (8.5-10.4); CO2 (CARBON DIOXIDE) 33 MMOL/L (24-34); SODIUM, SERUM 151 MMOL/L (135-148)
[2016-11-25 16:55] LABS: INTERNATIONAL NORMAL RATI 2.1 UNITS (-); PARTIAL THROMBO TIME 44.5 SEC (22.5-37.2)
[2016-11-25 16:57] LABS: PROTIME (NOT ORD) 23.1 SEC (12.0-14.5)
[2016-11-25 17:16] LABS: HEMATOCRIT 30.5 % (36.0-48.0); MEAN CORPUS HGB CONC 35.4 g/dL (32.0-36.0); PLATELET COUNT 24 10/3/uL (150-400); RBC MORPHOLOGY NORM (NORMAL); WHITE BLOOD CELLS 20.7 10/3/uL (4.5-10.5)
[2016-11-25 17:17] LABS: MANUAL DIFF NO %
[2016-11-25 18:57] LABS: MEAN CORPUS HGB CONC 34.7 g/dL (32.0-36.0); MEAN CORPUSCULAR HEMOGLOB 29.2 pg (26.0-34.0); MEAN PLATELET VOLUME 9.3 fL (9.2-13.0); RBC DISTRIBUTION WIDTH 14.1 % (12.0-16.0); WHITE BLOOD CELLS 15.8 10/3/uL (4.5-10.5)
[2016-11-25 18:59] LABS: HEMATOCRIT 21.6 % (36.0-48.0); HEMOGLOBIN 7.5 g/dL (12.0-16.0); MANUAL DIFF YES %; PLATELET COUNT 200 10/3/uL (150-400); RED CELL COUNT 2.57 10/6/uL (4.0-5.6)
[2016-11-25 19:04] LABS: INTERNATIONAL NORMAL RATI 1.5 UNITS (-)
[2016-11-25 19:05] LABS: FIBRINOGEN 213 MG/DL (230-462)
[2016-11-25 19:06] LABS: PARTIAL THROMBO TIME 35.3 SEC (22.5-37.2)
[2016-11-25 19:10] LABS: PROTIME (NOT ORD) 17.8 SEC (12.0-14.5)
[2016-11-25 19:21] LABS: BUN (BLOOD UREA NITROGEN) 9 MG/DL (6-23); CHLORIDE, SERUM 104 MMOL/L (96-112); CREATININE 1.21 MG/DL (0.55-1.02); GFR AFRICAN AMERICAN 52 ML/MIN (>=60); GFR NON AFRICAN AMERICAN 45 ML/MIN (>=60); GLUCOSE, SERUM 187 MG/DL (60-99); POTASSIUM, SERUM 3.8 MMOL/L (3.5-5.3); SODIUM, SERUM 149 MMOL/L (135-148)
[2016-11-25 19:23] LABS: CALCIUM, SERUM 8.2 MG/DL (8.5-10.4); CO2 (CARBON DIOXIDE) 20 MMOL/L (24-34); PHOSPHORUS, SERUM 4.4 MG/DL (2.5-4.5)
[2016-11-25 19:52] LABS: BAND NEUTROPHILS 41 %; LYMPHOCYTES 1 %; LYMPHOCYTES ABSOLUTE (CALC) 0.16 10/3/uL (0.67-4.30); MONOCYTES 2 %; MONOCYTES ABSOLUTE (CALC) 0.32 10/3/uL (0.21-1.20); NEUTROPHILS ABSOLUTE (CALC) 15.33 10/3/uL (2.02-8.40); PLATELET ESTIMATE ADQ (ADEQUATE); RBC MORPHOLOGY NORM (NORMAL); SEGMENTED NEUTROPHIL (0) 56 %; TOTAL NUCLEATED CELLS 100
[2016-11-26 01:43] LABS: BASOPHILS 0.1 %; BASOPHILS ABSOLUTE 0.01 10/3/uL (0.0-0.16); EOSINOPHILS 0 %; IMMATURE GRANULOCYTES 0.3 %; IMMATURE GRANULOCYTES ABSOLUTE 0.05 10/3/uL (0.0-0.11); LYMPHOCYTES 4.2 %; LYMPHOCYTES ABSOLUTE 0.68 10/3/uL (0.67-4.30); MEAN CORPUS HGB CONC 35.3 g/dL (32.0-36.0); MEAN CORPUSCULAR HEMOGLOB 29.4 pg (26.0-34.0); MEAN CORPUSCULAR VOLUME 83.3 fL (80-100); MEAN PLATELET VOLUME 9.9 fL (9.2-13.0); MONOCYTES 6.7 %; MONOCYTES ABSOLUTE 1.07 10/3/uL (0.21-1.20); NEUTROPHILS 88.7 %; PLATELET COUNT 234 10/3/uL (150-400); RBC DISTRIBUTION WIDTH 14.4 % (12.0-16.0)
[2016-11-26 01:47] LABS: HEMATOCRIT 27.5 % (36.0-48.0); HEMOGLOBIN 9.7 g/dL (12.0-16.0); MANUAL DIFF NO %
[2016-11-26 01:59] LABS: BUN (BLOOD UREA NITROGEN) 12 MG/DL (6-23); CALCIUM, SERUM 7.7 MG/DL (8.5-10.4); CHLORIDE, SERUM 108 MMOL/L (96-112); CO2 (CARBON DIOXIDE) 23 MMOL/L (24-34); CREATININE 1.37 MG/DL (0.55-1.02); GFR AFRICAN AMERICAN 45 ML/MIN (>=60); GFR NON AFRICAN AMERICAN 39 ML/MIN (>=60); POTASSIUM, SERUM 3.5 MMOL/L (3.5-5.3); SODIUM, SERUM 148 MMOL/L (135-148)
[2016-11-26 02:02] LABS: GLUCOSE, SERUM 229 MG/DL (60-99)
[2016-11-26 02:03] LABS: PHOSPHORUS, SERUM 2.6 MG/DL (2.5-4.5)
[2016-11-26 04:28] LABS: INSTRUMENT SERIAL # 8083
[2016-11-26 04:29] LABS: BE (BASE EXCESS) 1.3 MEQ/L (0 +/- 2.5); CARBOXYHEMOGLOBIN 0.2 % (0-3); HEMOBLOGIN CONTENT 10.2 G/DL (12-16); METHEMOGLOBIN 0.3 % (0-3); MODE CMV; O2 CONTENT 14.1 VOL% (18-24); PCO2 (CO2 TENSION) 36 MMHG (35-45); PO2 (O2 TENSION) 100 MMHG (79-93); SAMPLE Arterial; TIDAL VOLUME 550 ML; pH 7.46 (7.37-7.43)
[2016-11-26 05:25] LABS: INTERNATIONAL NORMAL RATI 1.5 UNITS (-); PARTIAL THROMBO TIME 34.5 SEC (22.5-37.2); PROTIME (NOT ORD) 17.7 SEC (12.0-14.5)
[2016-11-26 05:36] LABS: BUN (BLOOD UREA NITROGEN) 11 MG/DL (6-23); CALCIUM, SERUM 7.7 MG/DL (8.5-10.4); CHLORIDE, SERUM 106 MMOL/L (96-112); CO2 (CARBON DIOXIDE) 26 MMOL/L (24-34); CREATININE 1.08 MG/DL (0.55-1.02); GFR AFRICAN AMERICAN 60 ML/MIN (>=60); GFR NON AFRICAN AMERICAN 52 ML/MIN (>=60); GLUCOSE, SERUM 249 MG/DL (60-99); PHOSPHORUS, SERUM 2.7 MG/DL (2.5-4.5); POTASSIUM, SERUM 3.7 MMOL/L (3.5-5.3); SGOT(AST) 206 U/L (5-40); SGPT(ALT) 127 U/L (5-65); SODIUM, SERUM 146 MMOL/L (135-148); TOTAL PROTEIN 4.3 G/DL (6.0-8.5)
[2016-11-26 05:37] LABS: ALBUMIN 2.2 G/DL (3.5-5.0); ALKALINE PHOSPHATASE 54 U/L (45-117); BASOPHILS 0.1 %; BASOPHILS ABSOLUTE 0.01 10/3/uL (0.0-0.16); EOSINOPHILS 0 %; GLOBULIN 2.1 G/DL (2.5-4.1); HEMATOCRIT 27.2 % (36.0-48.0); HEMOGLOBIN 9.7 g/dL (12.0-16.0); IMMATURE GRANULOCYTES 0.3 %; IMMATURE GRANULOCYTES ABSOLUTE 0.05 10/3/uL (0.0-0.11); LYMPHOCYTES 5.3 %; LYMPHOCYTES ABSOLUTE 0.97 10/3/uL (0.67-4.30); MEAN CORPUS HGB CONC 35.7 g/dL (32.0-36.0); MEAN CORPUSCULAR HEMOGLOB 29.6 pg (26.0-34.0); MEAN CORPUSCULAR VOLUME 82.9 fL (80-100); MEAN PLATELET VOLUME 10.7 fL (9.2-13.0); MONOCYTES 7.7 %; MONOCYTES ABSOLUTE 1.41 10/3/uL (0.21-1.20); NEUTROPHILS 86.6 %; NEUTROPHILS ABSOLUTE 15.97 10/3/uL (2.02-8.40); PLATELET COUNT 233 10/3/uL (150-400); RBC DISTRIBUTION WIDTH 14.7 % (12.0-16.0); RED CELL COUNT 3.28 10/6/uL (4.0-5.6); TOTAL BILIRUBIN 1.4 MG/DL (0-1.2); WHITE BLOOD CELLS 18.4 10/3/uL (4.5-10.5)
[2016-11-26 05:39] LABS: MANUAL DIFF NO %
[2016-11-26 07:34] LABS: BE (BASE EXCESS) -8.2 MEQ/L (0 +/- 2.5); CARBOXYHEMOGLOBIN 0.3 % (0-3); HCO3 (ACTUAL BICARBONATE) 14.7 MEQ/L (23-27); HEMOBLOGIN CONTENT 8.4 G/DL (12-16); INSTRUMENT SERIAL # 11843; METHEMOGLOBIN 0.5 % (0-3); O2 CONTENT 12.2 VOL% (18-24); PCO2 (CO2 TENSION) 22 MMHG (35-45); PO2 (O2 TENSION) 258 MMHG (79-93); pH 7.44 (7.37-7.43)
[2016-11-26 07:35] LABS: SAMPLE Arterial; TIDAL VOLUME 500 ML
[2016-11-26 09:40] LABS: HEMATOCRIT 26.2 % (36.0-48.0); HEMOGLOBIN 9.5 g/dL (12.0-16.0)
[2016-11-26 09:52] LABS: BUN (BLOOD UREA NITROGEN) 13 MG/DL (6-23); CALCIUM, SERUM 7.7 MG/DL (8.5-10.4); CHLORIDE, SERUM 107 MMOL/L (96-112); CO2 (CARBON DIOXIDE) 28 MMOL/L (24-34); CREATININE 0.93 MG/DL (0.55-1.02); GFR AFRICAN AMERICAN 72 ML/MIN (>=60); GFR NON AFRICAN AMERICAN 62 ML/MIN (>=60); GLUCOSE, SERUM 218 MG/DL (60-99); PHOSPHORUS, SERUM 2.3 MG/DL (2.5-4.5); POTASSIUM, SERUM 3.8 MMOL/L (3.5-5.3); SODIUM, SERUM 145 MMOL/L (135-148)
[2016-11-26 12:18] LABS: HEMATOCRIT 26.2 % (36.0-48.0); HEMOGLOBIN 9.5 g/dL (12.0-16.0)
[2016-11-26 19:04] LABS: ALLENS TEST Pos; CARBOXYHEMOGLOBIN 0.8 % (0-3); HCO3 (ACTUAL BICARBONATE) 19.7 MEQ/L (23-27); INSTRUMENT SERIAL # 8083; METHEMOGLOBIN 0.4 % (0-3); O2 CONTENT 11.7 VOL% (18-24); OPERATOR ID 13715; PCO2 (CO2 TENSION) 30 MMHG (35-45); PO2 (O2 TENSION) 238 MMHG (79-93); SAMPLE Arterial; pH 7.43 (7.37-7.43)
[2016-11-26 20:18] LABS: HEMATOCRIT 26.3 % (36.0-48.0); HEMOGLOBIN 9.3 g/dL (12.0-16.0); MEAN CORPUS HGB CONC 35.4 g/dL (32.0-36.0); MEAN CORPUSCULAR HEMOGLOB 29.4 pg (26.0-34.0); MEAN CORPUSCULAR VOLUME 83.2 fL (80-100); MEAN PLATELET VOLUME 10.4 fL (9.2-13.0); PLATELET COUNT 197 10/3/uL (150-400); RBC DISTRIBUTION WIDTH 15.6 % (12.0-16.0); RED CELL COUNT 3.16 10/6/uL (4.0-5.6)
[2016-11-26 20:21] LABS: MANUAL DIFF YES %; WHITE BLOOD CELLS 27.1 10/3/uL (4.5-10.5)
[2016-11-26 20:34] LABS: BUN (BLOOD UREA NITROGEN) 18 MG/DL (6-23); CHLORIDE, SERUM 105 MMOL/L (96-112); CO2 (CARBON DIOXIDE) 31 MMOL/L (24-34); CREATININE 0.73 MG/DL (0.55-1.02); GFR AFRICAN AMERICAN 96 ML/MIN (>=60); GFR NON AFRICAN AMERICAN 83 ML/MIN (>=60); GLUCOSE, SERUM 158 MG/DL (60-99); PHOSPHORUS, SERUM 3.1 MG/DL (2.5-4.5); POTASSIUM, SERUM 3.7 MMOL/L (3.5-5.3); SODIUM, SERUM 142 MMOL/L (135-148)
[2016-11-26 20:44] LABS: BAND NEUTROPHILS 12 %; LYMPHOCYTES 7 %; MONOCYTES 3 %; MONOCYTES ABSOLUTE (CALC) 0.81 10/3/uL (0.21-1.20); NEUTROPHILS ABSOLUTE (CALC) 24.39 10/3/uL (2.02-8.40); PLATELET ESTIMATE ADQ (ADEQUATE); RBC MORPHOLOGY NORM (NORMAL); SEGMENTED NEUTROPHIL (0) 78 %; TOTAL NUCLEATED CELLS 100
[2016-11-26 22:23] LABS: ASCORBIC ACID (UR NOT ORDER) 40 (NEG); BILIRUBIN, URINE NEGATIVE (NEG); KETONE, URINE NEGATIVE (NEG); WBC (NOT ORDERED) (RFLEX) 3 (0-5)
[2016-11-26 22:24] LABS: LEUKOCYTE ESTERASE(NOT OR TRACE (NEG)
[2016-11-26 23:22] LABS: PROCALCITONIN 8.15 ng/mL (<0.5)
[2016-11-27 04:01] LABS: CARBOXYHEMOGLOBIN 0.5 % (0-3); HCO3 (ACTUAL BICARBONATE) 27.8 MEQ/L (23-27); INSTRUMENT SERIAL # 8083; METHEMOGLOBIN 0.3 % (0-3); PCO2 (CO2 TENSION) 38 MMHG (35-45); PO2 (O2 TENSION) 106 MMHG (79-93); pH 7.48 (7.37-7.43)
[2016-11-27 04:02] LABS: HEMOBLOGIN CONTENT 8.8 G/DL (12-16); MODE CMV; O2 CONTENT 12.2 VOL% (18-24); SAMPLE Arterial; TIDAL VOLUME 550 ML
[2016-11-27 04:16] LABS: INTERNATIONAL NORMAL RATI 1.3 UNITS (-); PROTIME (NOT ORD) 16.5 SEC (12.0-14.5)
[2016-11-27 04:17] LABS: HEMATOCRIT 25.1 % (36.0-48.0); HEMOGLOBIN 8.9 g/dL (12.0-16.0); MEAN CORPUS HGB CONC 35.5 g/dL (32.0-36.0); MEAN CORPUSCULAR HEMOGLOB 29.9 pg (26.0-34.0); MEAN CORPUSCULAR VOLUME 84.2 fL (80-100); MEAN PLATELET VOLUME 10.3 fL (9.2-13.0); PLATELET COUNT 188 10/3/uL (150-400); RBC DISTRIBUTION WIDTH 15.5 % (12.0-16.0); RED CELL COUNT 2.98 10/6/uL (4.0-5.6)
[2016-11-27 04:22] LABS: MANUAL DIFF YES %; WHITE BLOOD CELLS 31.1 10/3/uL (4.5-10.5)
[2016-11-27 04:31] LABS: ALBUMIN 2.1 G/DL (3.5-5.0); ALKALINE PHOSPHATASE 63 U/L (45-117); BUN (BLOOD UREA NITROGEN) 19 MG/DL (6-23); CALCIUM, SERUM 7.5 MG/DL (8.5-10.4); CHLORIDE, SERUM 108 MMOL/L (96-112); CO2 (CARBON DIOXIDE) 30 MMOL/L (24-34); GFR AFRICAN AMERICAN 101 ML/MIN (>=60); GFR NON AFRICAN AMERICAN 87 ML/MIN (>=60); GLOBULIN 2.2 G/DL (2.5-4.1); GLUCOSE, SERUM 142 MG/DL (60-99); POTASSIUM, SERUM 3.7 MMOL/L (3.5-5.3); PREALBUMIN 10.2 MG/DL (17.0-43.0); SGOT(AST) 860 U/L (5-40); SGPT(ALT) 695 U/L (5-65); SODIUM, SERUM 145 MMOL/L (135-148); TOTAL PROTEIN 4.3 G/DL (6.0-8.5)
[2016-11-27 04:38] LABS: TOTAL BILIRUBIN 0.9 MG/DL (0-1.2)
[2016-11-27 04:43] LABS: BAND NEUTROPHILS 2 %; LYMPHOCYTES 6 %; LYMPHOCYTES ABSOLUTE (CALC) 1.87 10/3/uL (0.67-4.30); MONOCYTES 1 %; MONOCYTES ABSOLUTE (CALC) 0.31 10/3/uL (0.21-1.20); NEUTROPHILS ABSOLUTE (CALC) 28.92 10/3/uL (2.02-8.40); PLATELET ESTIMATE ADQ (ADEQUATE); SEGMENTED NEUTROPHIL (0) 91 %; TOTAL NUCLEATED CELLS 100
[2016-11-27 13:59] LABS: HEMATOCRIT 24.2 % (36.0-48.0); HEMOGLOBIN 8.4 g/dL (12.0-16.0)
[2016-11-27 22:54] LABS: HEMATOCRIT 24.4 % (36.0-48.0); HEMOGLOBIN 8.2 g/dL (12.0-16.0)
[2016-11-28 04:05] LABS: HEMATOCRIT 24.8 % (36.0-48.0); HEMOGLOBIN 8.2 g/dL (12.0-16.0); MEAN CORPUSCULAR HEMOGLOB 29.7 pg (26.0-34.0); MEAN PLATELET VOLUME 10.6 fL (9.2-13.0); PLATELET COUNT 164 10/3/uL (150-400); RBC DISTRIBUTION WIDTH 15.7 % (12.0-16.0); RED CELL COUNT 2.76 10/6/uL (4.0-5.6)
[2016-11-28 04:06] LABS: MANUAL DIFF YES %; MEAN CORPUS HGB CONC 33.1 g/dL (32.0-36.0); MEAN CORPUSCULAR VOLUME 89.9 fL (80-100); WHITE BLOOD CELLS 30.3 10/3/uL (4.5-10.5)
[2016-11-28 04:24] LABS: A/G RATIO 0.8 (0.7-1.9); ALBUMIN 1.8 G/DL (3.5-5.0); BUN (BLOOD UREA NITROGEN) 21 MG/DL (6-23); CALCIUM, SERUM 7.7 MG/DL (8.5-10.4); CHLORIDE, SERUM 108 MMOL/L (96-112); CO2 (CARBON DIOXIDE) 29 MMOL/L (24-34); CREATININE 0.63 MG/DL (0.55-1.02); GFR AFRICAN AMERICAN 105 ML/MIN (>=60); GFR NON AFRICAN AMERICAN 90 ML/MIN (>=60); GLOBULIN 2.4 G/DL (2.5-4.1); GLUCOSE, SERUM 134 MG/DL (60-99); PHOSPHORUS, SERUM 2.6 MG/DL (2.5-4.5); POTASSIUM, SERUM 4.1 MMOL/L (3.5-5.3); SGOT(AST) 320 U/L (5-40); SGPT(ALT) 436 U/L (5-65); SODIUM, SERUM 145 MMOL/L (135-148); TOTAL BILIRUBIN 1.3 MG/DL (0-1.2); TOTAL PROTEIN 4.2 G/DL (6.0-8.5)
[2016-11-28 04:26] LABS: ALKALINE PHOSPHATASE 78 U/L (45-117); TRIGLYCERIDE 144 MG/DL (< 150)
[2016-11-28 04:29] LABS: BAND NEUTROPHILS 5 %; LYMPHOCYTES 5 %; LYMPHOCYTES ABSOLUTE (CALC) 1.52 10/3/uL (0.67-4.30); MONOCYTES 2 %; MONOCYTES ABSOLUTE (CALC) 0.61 10/3/uL (0.21-1.20); NEUTROPHILS ABSOLUTE (CALC) 28.18 10/3/uL (2.02-8.40); PLATELET ESTIMATE ADQ (ADEQUATE); RBC MORPHOLOGY NORM (NORMAL); SEGMENTED NEUTROPHIL (0) 88 %; TOTAL NUCLEATED CELLS 100
[2016-11-28 13:14] LABS: HEMOGLOBIN 8.3 g/dL (12.0-16.0)
[2016-11-29 05:32] LABS: BUN (BLOOD UREA NITROGEN) 22 MG/DL (6-23); CALCIUM, SERUM 7.5 MG/DL (8.5-10.4); CHLORIDE, SERUM 109 MMOL/L (96-112); CO2 (CARBON DIOXIDE) 30 MMOL/L (24-34); CREATININE 0.54 MG/DL (0.55-1.02); GFR AFRICAN AMERICAN 110 ML/MIN (>=60); GFR NON AFRICAN AMERICAN 95 ML/MIN (>=60); PHOSPHORUS, SERUM 2.1 MG/DL (2.5-4.5); POTASSIUM, SERUM 3.5 MMOL/L (3.5-5.3); SODIUM, SERUM 144 MMOL/L (135-148)
[2016-11-29 05:45] LABS: GLUCOSE, SERUM 131 MG/DL (60-99)
[2016-11-29 06:12] LABS: BASOPHILS 0.3 %; BASOPHILS ABSOLUTE 0.07 10/3/uL (0.0-0.16); EOSINOPHILS 2.7 %; EOSINOPHILS ABSOLUTE 0.58 10/3/uL (0.0-0.53); HEMATOCRIT 25.5 % (36.0-48.0); HEMOGLOBIN 8.4 g/dL (12.0-16.0); IMMATURE GRANULOCYTES 1.7 %; IMMATURE GRANULOCYTES ABSOLUTE 0.36 10/3/uL (0.0-0.11); LYMPHOCYTES 8.3 %; LYMPHOCYTES ABSOLUTE 1.78 10/3/uL (0.67-4.30); MEAN CORPUS HGB CONC 32.9 g/dL (32.0-36.0); MEAN CORPUSCULAR HEMOGLOB 30.2 pg (26.0-34.0); MEAN CORPUSCULAR VOLUME 91.7 fL (80-100); MEAN PLATELET VOLUME 10.1 fL (9.2-13.0); MONOCYTES 8.8 %; MONOCYTES ABSOLUTE 1.87 10/3/uL (0.21-1.20); NEUTROPHILS 78.2 %; NEUTROPHILS ABSOLUTE 16.69 10/3/uL (2.02-8.40); NUCLEATED RED BLOOD CELLS 0.6 /100WBC (0-0); PLATELET COUNT 189 10/3/uL (150-400); RBC DISTRIBUTION WIDTH 15.6 % (12.0-16.0); RED CELL COUNT 2.78 10/6/uL (4.0-5.6); WHITE BLOOD CELLS 21.4 10/3/uL (4.5-10.5)
[2016-11-29 06:15] LABS: MANUAL DIFF NO %
[2016-11-30 05:25] LABS: HEMOGLOBIN 9.8 g/dL (12.0-16.0); MEAN CORPUS HGB CONC 31.8 g/dL (32.0-36.0); MEAN CORPUSCULAR HEMOGLOB 29.3 pg (26.0-34.0); MEAN CORPUSCULAR VOLUME 92.2 fL (80-100); MEAN PLATELET VOLUME 10.1 fL (9.2-13.0); NUCLEATED RED BLOOD CELLS 0.7 /100WBC (0-0); PLATELET COUNT 234 10/3/uL (150-400); RBC DISTRIBUTION WIDTH 15.5 % (12.0-16.0); WHITE BLOOD CELLS 21.1 10/3/uL (4.5-10.5)
[2016-11-30 05:26] LABS: HEMATOCRIT 30.8 % (36.0-48.0); MANUAL DIFF YES %; RED CELL COUNT 3.34 10/6/uL (4.0-5.6)
[2016-11-30 05:30] LABS: ALBUMIN 1.9 G/DL (3.5-5.0); BUN (BLOOD UREA NITROGEN) 25 MG/DL (6-23); CALCIUM, SERUM 7.6 MG/DL (8.5-10.4); CHLORIDE, SERUM 107 MMOL/L (96-112); CO2 (CARBON DIOXIDE) 28 MMOL/L (24-34); GFR AFRICAN AMERICAN 106 ML/MIN (>=60); GFR NON AFRICAN AMERICAN 92 ML/MIN (>=60); PHOSPHORUS, SERUM 1.9 MG/DL (2.5-4.5); POTASSIUM, SERUM 3.3 MMOL/L (3.5-5.3); SGOT(AST) 72 U/L (5-40); SGPT(ALT) 199 U/L (5-65); SODIUM, SERUM 144 MMOL/L (135-148)
[2016-11-30 05:31] LABS: A/G RATIO 0.6 (0.7-1.9); ALKALINE PHOSPHATASE 122 U/L (45-117); GLOBULIN 3.3 G/DL (2.5-4.1); GLUCOSE, SERUM 202 MG/DL (60-99); TOTAL BILIRUBIN 1.9 MG/DL (0-1.2); TOTAL PROTEIN 5.2 G/DL (6.0-8.5)
[2016-11-30 05:53] LABS: BAND NEUTROPHILS 6 %; LYMPHOCYTES 3 %; LYMPHOCYTES ABSOLUTE (CALC) 0.63 10/3/uL (0.67-4.30); MONOCYTES 9 %; NEUTROPHILS ABSOLUTE (CALC) 18.57 10/3/uL (2.02-8.40); PLATELET ESTIMATE ADQ (ADEQUATE); RBC MORPHOLOGY NORM (NORMAL); SEGMENTED NEUTROPHIL (0) 82 %; TOTAL NUCLEATED CELLS 100
[2016-11-30 23:58] LABS: HEMATOCRIT 33.2 % (36.0-48.0); HEMOGLOBIN 10.6 g/dL (12.0-16.0)
[2016-12-01 05:02] LABS: HEMOGLOBIN 9.3 g/dL (12.0-16.0); MEAN CORPUSCULAR HEMOGLOB 29.2 pg (26.0-34.0); MEAN CORPUSCULAR VOLUME 91.2 fL (80-100); MEAN PLATELET VOLUME 10.3 fL (9.2-13.0); NUCLEATED RED BLOOD CELLS 0.9 /100WBC (0-0); PLATELET COUNT 241 10/3/uL (150-400); RBC DISTRIBUTION WIDTH 16.1 % (12.0-16.0); RED CELL COUNT 3.19 10/6/uL (4.0-5.6); WHITE BLOOD CELLS 22.7 10/3/uL (4.5-10.5)
[2016-12-01 05:04] LABS: CALCIUM, SERUM 7.5 MG/DL (8.5-10.4); CHLORIDE, SERUM 110 MMOL/L (96-112); CO2 (CARBON DIOXIDE) 26 MMOL/L (24-34); GFR AFRICAN AMERICAN 75 ML/MIN (>=60); GFR NON AFRICAN AMERICAN 64 ML/MIN (>=60); GLUCOSE, SERUM 226 MG/DL (60-99); SODIUM, SERUM 145 MMOL/L (135-148)
[2016-12-01 05:05] LABS: BUN (BLOOD UREA NITROGEN) 42 MG/DL (6-23)
[2016-12-01 05:07] LABS: HEMATOCRIT 29.1 % (36.0-48.0); MANUAL DIFF YES %
[2016-12-01 05:47] LABS: IMMATURE GRANS ABSOLUTE (CALC) 0.91 10/3/uL (0.0-0.11); LYMPHOCYTES 3 %; LYMPHOCYTES ABSOLUTE (CALC) 0.68 10/3/uL (0.67-4.30); METAMYELOCYTES 1 %; MONOCYTES 7 %; MONOCYTES ABSOLUTE (CALC) 1.59 10/3/uL (0.21-1.20); MYELOCYTES 3 %; NEUTROPHILS ABSOLUTE (CALC) 19.52 10/3/uL (2.02-8.40); TOTAL NUCLEATED CELLS 100
[2016-12-01 05:48] LABS: ANISOCYTOSIS 1+ (5-10/OIF) (0-5/OIF); BAND NEUTROPHILS 12 %; PLATELET ESTIMATE ADQ (ADEQUATE); RBC MORPHOLOGY ABN (NORMAL); SEGMENTED NEUTROPHIL (0) 74 %
[2016-12-01 06:19] LABS: PHOSPHORUS, SERUM 2.2 MG/DL (2.5-4.5)
[2016-12-02 01:29] LABS: ALLENS TEST Pos; BE (BASE EXCESS) -4.8 MEQ/L (0 +/- 2.5); CARBOXYHEMOGLOBIN 0.5 % (0-3); DEVICE NC; HCO3 (ACTUAL BICARBONATE) 18.5 MEQ/L (23-27); HEMOBLOGIN CONTENT 10.5 G/DL (12-16); INSTRUMENT SERIAL # 8083; METHEMOGLOBIN 0.2 % (0-3); O2 CONTENT 13.4 VOL% (18-24); OPERATOR ID 23712; PCO2 (CO2 TENSION) 29 MMHG (35-45); PO2 (O2 TENSION) 61 MMHG (79-93); SAMPLE Arterial; pH 7.43 (7.37-7.43)
[2016-12-02 01:46] LABS: INTERNATIONAL NORMAL RATI 1.5 UNITS (-); PARTIAL THROMBO TIME 34.9 SEC (22.5-37.2)
[2016-12-02 01:49] LABS: BASOPHILS 0.2 %; BASOPHILS ABSOLUTE 0.03 10/3/uL (0.0-0.16); EOSINOPHILS 0 %; HEMATOCRIT 31.8 % (36.0-48.0); HEMOGLOBIN 10.3 g/dL (12.0-16.0); IMMATURE GRANULOCYTES 0.5 %; LYMPHOCYTES 1.1 %; MEAN CORPUS HGB CONC 32.4 g/dL (32.0-36.0); MEAN CORPUSCULAR HEMOGLOB 29.5 pg (26.0-34.0); MEAN CORPUSCULAR VOLUME 91.1 fL (80-100); MEAN PLATELET VOLUME 11.6 fL (9.2-13.0); MONOCYTES 1.2 %; MONOCYTES ABSOLUTE 0.22 10/3/uL (0.21-1.20); NEUTROPHILS ABSOLUTE 18.33 10/3/uL (2.02-8.40); PLATELET COUNT 216 10/3/uL (150-400); RBC DISTRIBUTION WIDTH 16.6 % (12.0-16.0); RED CELL COUNT 3.49 10/6/uL (4.0-5.6); WHITE BLOOD CELLS 18.9 10/3/uL (4.5-10.5)
[2016-12-02 01:50] LABS: MANUAL DIFF NO %
[2016-12-02 01:55] LABS: A/G RATIO 0.5 (0.7-1.9); ALBUMIN 1.7 G/DL (3.5-5.0); CHLORIDE, SERUM 111 MMOL/L (96-112); CO2 (CARBON DIOXIDE) 25 MMOL/L (24-34); GLOBULIN 3.2 G/DL (2.5-4.1); GLUCOSE, SERUM 196 MG/DL (60-99); POTASSIUM, SERUM 4.6 MMOL/L (3.5-5.3); SGOT(AST) 48 U/L (5-40); SGPT(ALT) 84 U/L (5-65); SODIUM, SERUM 142 MMOL/L (135-148); TOTAL PROTEIN 4.9 G/DL (6.0-8.5)
[2016-12-02 01:56] LABS: ALKALINE PHOSPHATASE 167 U/L (45-117); BUN (BLOOD UREA NITROGEN) 69 MG/DL (6-23); CREATININE 1.43 MG/DL (0.55-1.02); GFR AFRICAN AMERICAN 43 ML/MIN (>=60); GFR NON AFRICAN AMERICAN 37 ML/MIN (>=60); PHOSPHORUS, SERUM 2.9 MG/DL (2.5-4.5)
[2016-12-02 03:04] LABS: PROCALCITONIN 17.84 ng/mL (<0.5)
[2016-12-02 08:19] LABS: ALLENS TEST Pos; BE (BASE EXCESS) -7.6 MEQ/L (0 +/- 2.5); CARBOXYHEMOGLOBIN 0.3 % (0-3); HCO3 (ACTUAL BICARBONATE) 15.7 MEQ/L (23-27); HEMOBLOGIN CONTENT 11.3 G/DL (12-16); INSTRUMENT SERIAL # 8083; METHEMOGLOBIN 0.4 % (0-3); O2 CONTENT 15.5 VOL% (18-24); OPERATOR ID 18642; PCO2 (CO2 TENSION) 26 MMHG (35-45); PO2 (O2 TENSION) 97 MMHG (79-93); SAMPLE Arterial; pH 7.41 (7.37-7.43)
[2016-12-02 15:30] LABS: BE (BASE EXCESS) -6.3 MEQ/L (0 +/- 2.5); CARBOXYHEMOGLOBIN 0.2 % (0-3); HCO3 (ACTUAL BICARBONATE) 17.4 MEQ/L (23-27); INSTRUMENT SERIAL # 8083; METHEMOGLOBIN 0.3 % (0-3); O2 CONTENT 15.1 VOL% (18-24); OPERATOR ID 18642; PCO2 (CO2 TENSION) 29 MMHG (35-45); PO2 (O2 TENSION) 94 MMHG (79-93); SAMPLE Arterial
[2016-12-02 15:31] LABS: ALLENS TEST Pos
[2016-12-03 04:08] LABS: CALCIUM, SERUM 7.9 MG/DL (8.5-10.4); CHLORIDE, SERUM 113 MMOL/L (96-112); CO2 (CARBON DIOXIDE) 22 MMOL/L (24-34); CREATININE 1.41 MG/DL (0.55-1.02); GFR AFRICAN AMERICAN 43 ML/MIN (>=60); GFR NON AFRICAN AMERICAN 37 ML/MIN (>=60); GLUCOSE, SERUM 181 MG/DL (60-99); POTASSIUM, SERUM 4.6 MMOL/L (3.5-5.3); SODIUM, SERUM 144 MMOL/L (135-148)
[2016-12-03 04:09] LABS: BUN (BLOOD UREA NITROGEN) 90 MG/DL (6-23); PHOSPHORUS, SERUM 3.8 MG/DL (2.5-4.5)
[2016-12-03 04:10] LABS: HEMATOCRIT 30.4 % (36.0-48.0); HEMOGLOBIN 9.9 g/dL (12.0-16.0); MEAN CORPUS HGB CONC 32.6 g/dL (32.0-36.0); MEAN CORPUSCULAR HEMOGLOB 29.2 pg (26.0-34.0); MEAN CORPUSCULAR VOLUME 89.7 fL (80-100); MEAN PLATELET VOLUME 13.3 fL (9.2-13.0); NUCLEATED RED BLOOD CELLS 10.4 /100WBC (0-0); PLATELET COUNT 194 10/3/uL (150-400); RBC DISTRIBUTION WIDTH 16.2 % (12.0-16.0); RED CELL COUNT 3.39 10/6/uL (4.0-5.6); WHITE BLOOD CELLS 17.7 10/3/uL (4.5-10.5)
[2016-12-03 04:15] LABS: MANUAL DIFF YES %
[2016-12-03 05:04] LABS: BAND NEUTROPHILS 28 %; LYMPHOCYTES 3 %; LYMPHOCYTES ABSOLUTE (CALC) 0.53 10/3/uL (0.67-4.30); MONOCYTES 3 %; MONOCYTES ABSOLUTE (CALC) 0.18 10/3/uL (0.21-1.20); NEUTROPHILS ABSOLUTE (CALC) 16.99 10/3/uL (2.02-8.40); SEGMENTED NEUTROPHIL (0) 66 %; TOTAL NUCLEATED CELLS 100
[2016-12-03 05:05] LABS: ANISOCYTOSIS 1+ (5-10/OIF) (0-5/OIF); ELLIPTOCYTES 1+ (3-10/OIF) (0-2/OIF); PLATELET ESTIMATE ADQ (ADEQUATE); POIKILOCYTOSIS 1+ (5-10/OIF) (0-5/OIF); POLYCHROMASIA 1+ (2-5/OIF) (0-1/OIF); TARGET CELLS OCC (1-2/OIF) (0-1/OIF)
[2016-12-03 10:13] LABS: ASCORBIC ACID (UR NOT ORDER) NEG (NEG); BILIRUBIN, URINE NEGATIVE (NEG); KETONE, URINE NEGATIVE (NEG); LEUKOCYTE ESTERASE(NOT OR NEG (NEG); WBC (NOT ORDERED) (RFLEX) 4 (0-5)
[2016-12-03 15:29] LABS: BE (BASE EXCESS) -7.3 MEQ/L (0 +/- 2.5); CARBOXYHEMOGLOBIN 1.8 % (0-3); DEVICE vapotherm; HCO3 (ACTUAL BICARBONATE) 16.9 MEQ/L (23-27); HEMOBLOGIN CONTENT 5.5 G/DL (12-16); INSTRUMENT SERIAL # 8083; METHEMOGLOBIN 0.9 % (0-3); O2 CONTENT 7.3 VOL% (18-24); OPERATOR ID 18801; PCO2 (CO2 TENSION) 28 MMHG (35-45); PO2 (O2 TENSION) 77 MMHG (79-93); SAMPLE Arterial
[2016-12-03 16:09] LABS: HEMOGLOBIN 8.7 g/dL (12.0-16.0)
[2016-12-03 16:10] LABS: HEMATOCRIT 26.1 % (36.0-48.0)
[2016-12-04 01:56] LABS: HEMATOCRIT 24.4 % (36.0-48.0); HEMOGLOBIN 8.1 g/dL (12.0-16.0); MEAN CORPUS HGB CONC 33.2 g/dL (32.0-36.0); MEAN CORPUSCULAR HEMOGLOB 29.1 pg (26.0-34.0); MEAN CORPUSCULAR VOLUME 87.8 fL (80-100); MEAN PLATELET VOLUME 12.6 fL (9.2-13.0); NUCLEATED RED BLOOD CELLS 14.9 /100WBC (0-0); PLATELET COUNT 172 10/3/uL (150-400); RBC DISTRIBUTION WIDTH 16.4 % (12.0-16.0); RED CELL COUNT 2.78 10/6/uL (4.0-5.6); WHITE BLOOD CELLS 13.4 10/3/uL (4.5-10.5)
[2016-12-04 01:57] LABS: MANUAL DIFF YES %
[2016-12-04 02:08] LABS: BAND NEUTROPHILS 4 %; CALCIUM, SERUM 8.1 MG/DL (8.5-10.4); CHLORIDE, SERUM 120 MMOL/L (96-112); CO2 (CARBON DIOXIDE) 25 MMOL/L (24-34); CREATININE 0.97 MG/DL (0.55-1.02); GFR AFRICAN AMERICAN 68 ML/MIN (>=60); GFR NON AFRICAN AMERICAN 59 ML/MIN (>=60); GLUCOSE, SERUM 185 MG/DL (60-99); LYMPHOCYTES 1 %; LYMPHOCYTES ABSOLUTE (CALC) 0.13 10/3/uL (0.67-4.30); MONOCYTES 6 %; NEUTROPHILS ABSOLUTE (CALC) 12.46 10/3/uL (2.02-8.40); PLATELET ESTIMATE ADQ (ADEQUATE); POTASSIUM, SERUM 3.8 MMOL/L (3.5-5.3); RBC MORPHOLOGY NORM (NORMAL); SEGMENTED NEUTROPHIL (0) 89 %; SGOT(AST) 118 U/L (5-40); SGPT(ALT) 119 U/L (5-65); SODIUM, SERUM 150 MMOL/L (135-148); TOTAL NUCLEATED CELLS 100; TOTAL PROTEIN 4.2 G/DL (6.0-8.5)
[2016-12-04 02:12] LABS: A/G RATIO 0.4 (0.7-1.9); ALBUMIN 1.1 G/DL (3.5-5.0); ALKALINE PHOSPHATASE 77 U/L (45-117); BUN (BLOOD UREA NITROGEN) 70 MG/DL (6-23); GLOBULIN 3.1 G/DL (2.5-4.1); PHOSPHORUS, SERUM 2.4 MG/DL (2.5-4.5); TOTAL BILIRUBIN 3.2 MG/DL (0-1.2)
[2016-12-04 18:18] LABS: AMYLASE BODY FLUID 565 U/L
[2016-12-04 18:28] LABS: AMYLASE BODY FLUID 620 U/L
[2016-12-04 20:15] LABS: AMYLASE BODY FLUID 2412 U/L
[2016-12-05 03:50] LABS: INSTRUMENT SERIAL # 8083; PCO2 (CO2 TENSION) 32 MMHG (35-45); pH 7.44 (7.37-7.43)
[2016-12-05 03:51] LABS: ALLENS TEST Pos; BE (BASE EXCESS) -2.8 MEQ/L (0 +/- 2.5); CARBOXYHEMOGLOBIN 1.6 % (0-3); DEVICE HFNC; HCO3 (ACTUAL BICARBONATE) 21.1 MEQ/L (23-27); HEMOBLOGIN CONTENT 5.7 G/DL (12-16); METHEMOGLOBIN 0.6 % (0-3); O2 CONTENT 7.3 VOL% (18-24); OPERATOR ID 16469; PO2 (O2 TENSION) 64 MMHG (79-93); SAMPLE Arterial
[2016-12-05 03:56] LABS: INTERNATIONAL NORMAL RATI 1.4 UNITS (-); PROTIME (NOT ORD) 17.1 SEC (12.0-14.5)
[2016-12-05 03:57] LABS: PARTIAL THROMBO TIME 47.3 SEC (22.5-37.2)
[2016-12-05 04:03] LABS: MEAN CORPUS HGB CONC 32.6 g/dL (32.0-36.0); MEAN CORPUSCULAR HEMOGLOB 28.8 pg (26.0-34.0); MEAN CORPUSCULAR VOLUME 88.4 fL (80-100); MEAN PLATELET VOLUME 11.9 fL (9.2-13.0); NUCLEATED RED BLOOD CELLS 4.5 /100WBC (0-0); PLATELET COUNT 128 10/3/uL (150-400); RBC DISTRIBUTION WIDTH 16.8 % (12.0-16.0); WHITE BLOOD CELLS 15.2 10/3/uL (4.5-10.5)
[2016-12-05 04:05] LABS: BUN (BLOOD UREA NITROGEN) 48 MG/DL (6-23); CALCIUM, SERUM 8.7 MG/DL (8.5-10.4); CHLORIDE, SERUM 120 MMOL/L (96-112); CO2 (CARBON DIOXIDE) 22 MMOL/L (24-34); CREATININE 0.76 MG/DL (0.55-1.02); GFR AFRICAN AMERICAN 91 ML/MIN (>=60); GFR NON AFRICAN AMERICAN 79 ML/MIN (>=60); HEMATOCRIT 17.5 % (36.0-48.0); HEMOGLOBIN 5.7 g/dL (12.0-16.0); MANUAL DIFF YES %; PHOSPHORUS, SERUM 2.8 MG/DL (2.5-4.5); POTASSIUM, SERUM 3.8 MMOL/L (3.5-5.3); RED CELL COUNT 1.98 10/6/uL (4.0-5.6); SGOT(AST) 39 U/L (5-40); SGPT(ALT) 59 U/L (5-65); SODIUM, SERUM 152 MMOL/L (135-148)
[2016-12-05 04:06] LABS: A/G RATIO 1.9 (0.7-1.9); ALBUMIN 3.7 G/DL (3.5-5.0); ALKALINE PHOSPHATASE 55 U/L (45-117); GLUCOSE, SERUM 111 MG/DL (60-99); TOTAL BILIRUBIN 4.3 MG/DL (0-1.2); TOTAL PROTEIN 5.7 G/DL (6.0-8.5)
[2016-12-05 04:20] LABS: BAND NEUTROPHILS 3 %; EOSINOPHILS 1 %; EOSINOPHILS ABSOLUTE (CALC) 0.15 10/3/uL (0.0-0.53); LYMPHOCYTES 5 %; LYMPHOCYTES ABSOLUTE (CALC) 1.37 10/3/uL (0.67-4.30); MONOCYTES ABSOLUTE (CALC) 0.15 10/3/uL (0.21-1.20); NEUTROPHILS ABSOLUTE (CALC) 13.53 10/3/uL (2.02-8.40); SEGMENTED NEUTROPHIL (0) 86 %; TOTAL NUCLEATED CELLS 100
[2016-12-05 04:21] LABS: MONOCYTES 5 %; PLATELET ESTIMATE SLT DEC (ADEQUATE)
[2016-12-05 06:24] LABS: BD FL SOURCE (NOT ORD) RUQ ABD
[2016-12-05 06:45] LABS: BD FL SOURCE (NOT ORD) LUQ ABD; BD FL SOURCE (NOT ORD) RLQ ABD
[2016-12-05 06:53] LABS: HEMOGLOBIN 5.7 g/dL (12.0-16.0)
[2016-12-05 22:13] LABS: BASOPHILS 0.2 %; BASOPHILS ABSOLUTE 0.03 10/3/uL (0.0-0.16); EOSINOPHILS 0.8 %; EOSINOPHILS ABSOLUTE 0.14 10/3/uL (0.0-0.53); IMMATURE GRANULOCYTES 1.6 %; IMMATURE GRANULOCYTES ABSOLUTE 0.27 10/3/uL (0.0-0.11); LYMPHOCYTES 2.3 %; LYMPHOCYTES ABSOLUTE 0.39 10/3/uL (0.67-4.30); MEAN CORPUS HGB CONC 32.2 g/dL (32.0-36.0); MEAN CORPUSCULAR HEMOGLOB 27.8 pg (26.0-34.0); MEAN CORPUSCULAR VOLUME 86.4 fL (80-100); MONOCYTES 5.3 %; MONOCYTES ABSOLUTE 0.88 10/3/uL (0.21-1.20); NEUTROPHILS 89.8 %; NEUTROPHILS ABSOLUTE 14.91 10/3/uL (2.02-8.40); PLATELET COUNT 152 10/3/uL (150-400); RBC DISTRIBUTION WIDTH 17.4 % (12.0-16.0); WHITE BLOOD CELLS 16.6 10/3/uL (4.5-10.5)
[2016-12-05 22:17] LABS: HEMATOCRIT 26.1 % (36.0-48.0); HEMOGLOBIN 8.4 g/dL (12.0-16.0); MANUAL DIFF NO %; RED CELL COUNT 3.02 10/6/uL (4.0-5.6)
[2016-12-06 01:56] LABS: BASOPHILS 0.1 %; BASOPHILS ABSOLUTE 0.02 10/3/uL (0.0-0.16); EOSINOPHILS 1.3 %; EOSINOPHILS ABSOLUTE 0.22 10/3/uL (0.0-0.53); HEMATOCRIT 26.3 % (36.0-48.0); HEMOGLOBIN 8.8 g/dL (12.0-16.0); IMMATURE GRANULOCYTES 1.6 %; IMMATURE GRANULOCYTES ABSOLUTE 0.28 10/3/uL (0.0-0.11); LYMPHOCYTES 3.5 %; LYMPHOCYTES ABSOLUTE 0.61 10/3/uL (0.67-4.30); MANUAL DIFF NO %; MEAN CORPUS HGB CONC 33.5 g/dL (32.0-36.0); MEAN CORPUSCULAR HEMOGLOB 28.2 pg (26.0-34.0); MEAN CORPUSCULAR VOLUME 84.3 fL (80-100); MEAN PLATELET VOLUME 12.3 fL (9.2-13.0); MONOCYTES 5.4 %; MONOCYTES ABSOLUTE 0.95 10/3/uL (0.21-1.20); NEUTROPHILS 88.1 %; NEUTROPHILS ABSOLUTE 15.48 10/3/uL (2.02-8.40); NUCLEATED RED BLOOD CELLS 3.7 /100WBC (0-0); PLATELET COUNT 166 10/3/uL (150-400); RBC DISTRIBUTION WIDTH 17.8 % (12.0-16.0); RED CELL COUNT 3.12 10/6/uL (4.0-5.6); WHITE BLOOD CELLS 17.6 10/3/uL (4.5-10.5)
[2016-12-06 02:08] LABS: A/G RATIO 1.5 (0.7-1.9); ALBUMIN 3.5 G/DL (3.5-5.0); CALCIUM, SERUM 7.9 MG/DL (8.5-10.4); CHLORIDE, SERUM 116 MMOL/L (96-112); CO2 (CARBON DIOXIDE) 25 MMOL/L (24-34); CREATININE 0.75 MG/DL (0.55-1.02); GFR AFRICAN AMERICAN 93 ML/MIN (>=60); GFR NON AFRICAN AMERICAN 80 ML/MIN (>=60); GLOBULIN 2.4 G/DL (2.5-4.1); GLUCOSE, SERUM 110 MG/DL (60-99); PHOSPHORUS, SERUM 2.3 MG/DL (2.5-4.5); POTASSIUM, SERUM 3.3 MMOL/L (3.5-5.3); SGOT(AST) 24 U/L (5-40); SGPT(ALT) 41 U/L (5-65); SODIUM, SERUM 152 MMOL/L (135-148); TOTAL BILIRUBIN 4.5 MG/DL (0-1.2); TOTAL PROTEIN 5.9 G/DL (6.0-8.5)
[2016-12-06 02:13] LABS: ALKALINE PHOSPHATASE 68 U/L (45-117); BUN (BLOOD UREA NITROGEN) 40 MG/DL (6-23)
[2016-12-06 13:52] LABS: POTASSIUM, SERUM 3.5 MMOL/L (3.5-5.3)
[2016-12-06 14:02] LABS: HEMOGLOBIN 9.9 g/dL (12.0-16.0)
[2016-12-06 14:03] LABS: HEMATOCRIT 29.7 % (36.0-48.0)
[2016-12-06 19:38] LABS: HEMATOCRIT 28.8 % (36.0-48.0); HEMOGLOBIN 9.7 g/dL (12.0-16.0)
[2016-12-07 04:03] LABS: ALBUMIN 2.9 G/DL (3.5-5.0); BUN (BLOOD UREA NITROGEN) 32 MG/DL (6-23); CALCIUM, SERUM 8.1 MG/DL (8.5-10.4); CHLORIDE, SERUM 110 MMOL/L (96-112); CO2 (CARBON DIOXIDE) 25 MMOL/L (24-34); CREATININE 0.71 MG/DL (0.55-1.02); GFR AFRICAN AMERICAN 99 ML/MIN (>=60); GFR NON AFRICAN AMERICAN 86 ML/MIN (>=60); GLUCOSE, SERUM 108 MG/DL (60-99); PHOSPHORUS, SERUM 2.3 MG/DL (2.5-4.5); POTASSIUM, SERUM 3.6 MMOL/L (3.5-5.3); SODIUM, SERUM 145 MMOL/L (135-148)
[2016-12-07 04:06] LABS: HEMOGLOBIN 10.9 g/dL (12.0-16.0); MEAN CORPUS HGB CONC 33.4 g/dL (32.0-36.0); MEAN CORPUSCULAR HEMOGLOB 28.5 pg (26.0-34.0); MEAN CORPUSCULAR VOLUME 85.1 fL (80-100); MEAN PLATELET VOLUME 13.4 fL (9.2-13.0); NUCLEATED RED BLOOD CELLS 1.8 /100WBC (0-0); RBC DISTRIBUTION WIDTH 17.9 % (12.0-16.0); WHITE BLOOD CELLS 16.2 10/3/uL (4.5-10.5)
[2016-12-07 04:07] LABS: HEMATOCRIT 32.6 % (36.0-48.0); MANUAL DIFF YES %; PLATELET COUNT 221 10/3/uL (150-400); RED CELL COUNT 3.83 10/6/uL (4.0-5.6)
[2016-12-07 04:39] LABS: ANISOCYTOSIS 1+ (5-10/OIF) (0-5/OIF); BAND NEUTROPHILS 5 %; IMMATURE GRANS ABSOLUTE (CALC) 0.16 10/3/uL (0.0-0.11); LYMPHOCYTES 4 %; LYMPHOCYTES ABSOLUTE (CALC) 0.65 10/3/uL (0.67-4.30); METAMYELOCYTES 1 %; MONOCYTES 1 %; MONOCYTES ABSOLUTE (CALC) 0.16 10/3/uL (0.21-1.20); NEUTROPHILS ABSOLUTE (CALC) 15.23 10/3/uL (2.02-8.40); PLATELET ESTIMATE ADQ (ADEQUATE); SEGMENTED NEUTROPHIL (0) 89 %; TOTAL NUCLEATED CELLS 100
[2016-12-07 15:35] LABS: POTASSIUM, SERUM 3.8 MMOL/L (3.5-5.3)
[2016-12-08 05:49] LABS: HEMATOCRIT 30.7 % (36.0-48.0); HEMOGLOBIN 9.9 g/dL (12.0-16.0); MEAN CORPUS HGB CONC 32.2 g/dL (32.0-36.0); MEAN CORPUSCULAR HEMOGLOB 28.1 pg (26.0-34.0); MEAN CORPUSCULAR VOLUME 87.2 fL (80-100); MEAN PLATELET VOLUME 13.6 fL (9.2-13.0); NUCLEATED RED BLOOD CELLS 0.6 /100WBC (0-0); PLATELET COUNT 257 10/3/uL (150-400); RBC DISTRIBUTION WIDTH 17.8 % (12.0-16.0); RED CELL COUNT 3.52 10/6/uL (4.0-5.6); WHITE BLOOD CELLS 16.7 10/3/uL (4.5-10.5)
[2016-12-08 05:52] LABS: MANUAL DIFF YES %
[2016-12-08 05:57] LABS: BUN (BLOOD UREA NITROGEN) 31 MG/DL (6-23); CALCIUM, SERUM 7.8 MG/DL (8.5-10.4); CHLORIDE, SERUM 106 MMOL/L (96-112); CO2 (CARBON DIOXIDE) 28 MMOL/L (24-34); CREATININE 0.63 MG/DL (0.55-1.02); GFR AFRICAN AMERICAN 105 ML/MIN (>=60); GFR NON AFRICAN AMERICAN 90 ML/MIN (>=60); GLUCOSE, SERUM 91 MG/DL (60-99); PHOSPHORUS, SERUM 3.2 MG/DL (2.5-4.5); POTASSIUM, SERUM 3.9 MMOL/L (3.5-5.3); SODIUM, SERUM 140 MMOL/L (135-148)
[2016-12-08 06:00] LABS: TRIGLYCERIDE 129 MG/DL (< 150)
[2016-12-08 06:07] LABS: PREALBUMIN 4.1 MG/DL (17.0-43.0)
[2016-12-08 06:51] LABS: BAND NEUTROPHILS 5 %; EOSINOPHILS 3 %; IMMATURE GRANS ABSOLUTE (CALC) 0.33 10/3/uL (0.0-0.11); LYMPHOCYTES 7 %; LYMPHOCYTES ABSOLUTE (CALC) 1.17 10/3/uL (0.67-4.30); METAMYELOCYTES 2 %; MONOCYTES 5 %; MONOCYTES ABSOLUTE (CALC) 0.84 10/3/uL (0.21-1.20); NEUTROPHILS ABSOLUTE (CALC) 13.86 10/3/uL (2.02-8.40); SEGMENTED NEUTROPHIL (0) 78 %; TOTAL NUCLEATED CELLS 100
[2016-12-08 06:52] LABS: ANISOCYTOSIS 1+ (5-10/OIF) (0-5/OIF); PLATELET ESTIMATE ADQ (ADEQUATE); POLYCHROMASIA 1+ (2-5/OIF) (0-1/OIF)
[2016-12-08 06:53] LABS: TARGET CELLS FEW (3-10/OIF) (0-1/OIF)
[2016-12-08 06:54] LABS: TOXIC GRANULATION SLT
[2016-12-09 04:34] LABS: BUN (BLOOD UREA NITROGEN) 32 MG/DL (6-23); CALCIUM, SERUM 7.7 MG/DL (8.5-10.4); CHLORIDE, SERUM 109 MMOL/L (96-112); CO2 (CARBON DIOXIDE) 24 MMOL/L (24-34); CREATININE 0.56 MG/DL (0.55-1.02); GFR AFRICAN AMERICAN 109 ML/MIN (>=60); GFR NON AFRICAN AMERICAN 94 ML/MIN (>=60); PHOSPHORUS, SERUM 4.1 MG/DL (2.5-4.5); POTASSIUM, SERUM 4.5 MMOL/L (3.5-5.3); SODIUM, SERUM 141 MMOL/L (135-148)
[2016-12-09 04:36] LABS: GLUCOSE, SERUM 115 MG/DL (60-99)
[2016-12-09 04:47] LABS: BASOPHILS 0.1 %; BASOPHILS ABSOLUTE 0.01 10/3/uL (0.0-0.16); EOSINOPHILS 3.1 %; EOSINOPHILS ABSOLUTE 0.42 10/3/uL (0.0-0.53); HEMATOCRIT 27.9 % (36.0-48.0); IMMATURE GRANULOCYTES 1.6 %; IMMATURE GRANULOCYTES ABSOLUTE 0.22 10/3/uL (0.0-0.11); LYMPHOCYTES 3.5 %; LYMPHOCYTES ABSOLUTE 0.48 10/3/uL (0.67-4.30); MEAN CORPUS HGB CONC 32.3 g/dL (32.0-36.0); MEAN CORPUSCULAR HEMOGLOB 27.9 pg (26.0-34.0); MEAN CORPUSCULAR VOLUME 86.4 fL (80-100); MEAN PLATELET VOLUME 13.3 fL (9.2-13.0); MONOCYTES 6.3 %; MONOCYTES ABSOLUTE 0.87 10/3/uL (0.21-1.20); NEUTROPHILS 85.4 %; NEUTROPHILS ABSOLUTE 11.76 10/3/uL (2.02-8.40); PLATELET COUNT 333 10/3/uL (150-400); RBC DISTRIBUTION WIDTH 17.6 % (12.0-16.0); RED CELL COUNT 3.23 10/6/uL (4.0-5.6); WHITE BLOOD CELLS 13.8 10/3/uL (4.5-10.5)
[2016-12-09 04:49] LABS: MANUAL DIFF NO %
[2016-12-09 04:57] LABS: ANISOCYTOSIS 1+ (5-10/OIF) (0-5/OIF); GIANT PLATELET FEW; PLATELET ESTIMATE ADQ (ADEQUATE); RBC MORPHOLOGY ABN (NORMAL)
[2016-12-10 05:17] LABS: BUN (BLOOD UREA NITROGEN) 32 MG/DL (6-23); CALCIUM, SERUM 8.1 MG/DL (8.5-10.4); CHLORIDE, SERUM 110 MMOL/L (96-112); CO2 (CARBON DIOXIDE) 25 MMOL/L (24-34); GFR AFRICAN AMERICAN 113 ML/MIN (>=60); GFR NON AFRICAN AMERICAN 97 ML/MIN (>=60); PHOSPHORUS, SERUM 3.7 MG/DL (2.5-4.5); POTASSIUM, SERUM 4.2 MMOL/L (3.5-5.3); SGOT(AST) 26 U/L (5-40); SGPT(ALT) 22 U/L (5-65); SODIUM, SERUM 143 MMOL/L (135-148); TOTAL BILIRUBIN 4.1 MG/DL (0-1.2); TOTAL PROTEIN 5.4 G/DL (6.0-8.5); TRIGLYCERIDE 133 MG/DL (< 150)
[2016-12-10 05:25] LABS: HEMOGLOBIN 9.8 g/dL (12.0-16.0); MEAN CORPUS HGB CONC 31.5 g/dL (32.0-36.0); MEAN CORPUSCULAR HEMOGLOB 28.2 pg (26.0-34.0); PLATELET COUNT 384 10/3/uL (150-400); RBC DISTRIBUTION WIDTH 18.2 % (12.0-16.0); RED CELL COUNT 3.47 10/6/uL (4.0-5.6); WHITE BLOOD CELLS 13.6 10/3/uL (4.5-10.5)
[2016-12-10 05:26] LABS: A/G RATIO 0.5 (0.7-1.9); ALBUMIN 1.8 G/DL (3.5-5.0); ALKALINE PHOSPHATASE 139 U/L (45-117); GLOBULIN 3.6 G/DL (2.5-4.1); GLUCOSE, SERUM 73 MG/DL (60-99)
[2016-12-10 05:28] LABS: HEMATOCRIT 31.1 % (36.0-48.0); MANUAL DIFF YES %; MEAN CORPUSCULAR VOLUME 89.6 fL (80-100)
[2016-12-10 07:05] LABS: PROCALCITONIN 1.79 ng/mL (<0.5)
[2016-12-10 07:22] LABS: BAND NEUTROPHILS 12 %; BASOPHILS 1 %; BASOPHILS ABSOLUTE (CALC) 0.14 10/3/uL (0.0-0.16); EOSINOPHILS 1 %; EOSINOPHILS ABSOLUTE (CALC) 0.14 10/3/uL (0.0-0.53); IMMATURE GRANS ABSOLUTE (CALC) 0.14 10/3/uL (0.0-0.11); LYMPHOCYTES 4 %; LYMPHOCYTES ABSOLUTE (CALC) 0.54 10/3/uL (0.67-4.30); METAMYELOCYTES 1 %; MONOCYTES 3 %; MONOCYTES ABSOLUTE (CALC) 0.41 10/3/uL (0.21-1.20); NEUTROPHILS ABSOLUTE (CALC) 12.24 10/3/uL (2.02-8.40); PLATELET ESTIMATE ADQ (ADEQUATE); SEGMENTED NEUTROPHIL (0) 78 %; TOTAL NUCLEATED CELLS 100
[2016-12-10 07:23] LABS: ANISOCYTOSIS 1+ (5-10/OIF) (0-5/OIF); POLYCHROMASIA 1+ (2-5/OIF) (0-1/OIF)
[2016-12-11 05:33] LABS: BASOPHILS 0.3 %; BASOPHILS ABSOLUTE 0.04 10/3/uL (0.0-0.16); EOSINOPHILS 2.5 %; EOSINOPHILS ABSOLUTE 0.34 10/3/uL (0.0-0.53); HEMATOCRIT 29.7 % (36.0-48.0); HEMOGLOBIN 9.4 g/dL (12.0-16.0); IMMATURE GRANULOCYTES 0.9 %; IMMATURE GRANULOCYTES ABSOLUTE 0.13 10/3/uL (0.0-0.11); LYMPHOCYTES 5.2 %; LYMPHOCYTES ABSOLUTE 0.71 10/3/uL (0.67-4.30); MEAN CORPUS HGB CONC 31.6 g/dL (32.0-36.0); MEAN CORPUSCULAR HEMOGLOB 28.3 pg (26.0-34.0); MEAN CORPUSCULAR VOLUME 89.5 fL (80-100); MEAN PLATELET VOLUME 12.9 fL (9.2-13.0); MONOCYTES 8.4 %; MONOCYTES ABSOLUTE 1.16 10/3/uL (0.21-1.20); NEUTROPHILS 82.7 %; NEUTROPHILS ABSOLUTE 11.39 10/3/uL (2.02-8.40); PLATELET COUNT 465 10/3/uL (150-400); RBC DISTRIBUTION WIDTH 18.1 % (12.0-16.0); RED CELL COUNT 3.32 10/6/uL (4.0-5.6); WHITE BLOOD CELLS 13.8 10/3/uL (4.5-10.5)
[2016-12-11 05:34] LABS: MANUAL DIFF NO %
[2016-12-11 05:35] LABS: ALBUMIN 1.8 G/DL (3.5-5.0); BUN (BLOOD UREA NITROGEN) 33 MG/DL (6-23); CALCIUM, SERUM 8.2 MG/DL (8.5-10.4); CHLORIDE, SERUM 111 MMOL/L (96-112); CO2 (CARBON DIOXIDE) 25 MMOL/L (24-34); CREATININE 0.53 MG/DL (0.55-1.02); GFR AFRICAN AMERICAN 111 ML/MIN (>=60); GFR NON AFRICAN AMERICAN 96 ML/MIN (>=60); PHOSPHORUS, SERUM 3.6 MG/DL (2.5-4.5); POTASSIUM, SERUM 4.3 MMOL/L (3.5-5.3); SODIUM, SERUM 145 MMOL/L (135-148)
[2016-12-11 05:39] LABS: GLUCOSE, SERUM 103 MG/DL (60-99)
[2016-12-12 06:19] LABS: HEMATOCRIT 27.9 % (36.0-48.0); MEAN CORPUS HGB CONC 32.3 g/dL (32.0-36.0); MEAN CORPUSCULAR HEMOGLOB 28.7 pg (26.0-34.0); MEAN CORPUSCULAR VOLUME 88.9 fL (80-100); MEAN PLATELET VOLUME 11.9 fL (9.2-13.0); PLATELET COUNT 521 10/3/uL (150-400); RBC DISTRIBUTION WIDTH 18.2 % (12.0-16.0); RED CELL COUNT 3.14 10/6/uL (4.0-5.6); WHITE BLOOD CELLS 13.7 10/3/uL (4.5-10.5)
[2016-12-12 06:22] LABS: MANUAL DIFF YES %
[2016-12-12 06:23] LABS: A/G RATIO 0.5 (0.7-1.9); ALBUMIN 1.8 G/DL (3.5-5.0); BUN (BLOOD UREA NITROGEN) 32 MG/DL (6-23); CALCIUM, SERUM 7.9 MG/DL (8.5-10.4); CHLORIDE, SERUM 111 MMOL/L (96-112); CO2 (CARBON DIOXIDE) 27 MMOL/L (24-34); CREATININE 0.54 MG/DL (0.55-1.02); GFR AFRICAN AMERICAN 110 ML/MIN (>=60); GFR NON AFRICAN AMERICAN 95 ML/MIN (>=60); GLOBULIN 3.8 G/DL (2.5-4.1); GLUCOSE, SERUM 116 MG/DL (60-99); PHOSPHORUS, SERUM 3.4 MG/DL (2.5-4.5); POTASSIUM, SERUM 4.2 MMOL/L (3.5-5.3); SGOT(AST) 28 U/L (5-40); SGPT(ALT) 24 U/L (5-65); SODIUM, SERUM 142 MMOL/L (135-148); TOTAL PROTEIN 5.6 G/DL (6.0-8.5)
[2016-12-12 06:24] LABS: ALKALINE PHOSPHATASE 162 U/L (45-117); TOTAL BILIRUBIN 3.3 MG/DL (0-1.2)
[2016-12-12 08:05] LABS: BAND NEUTROPHILS 3 %; EOSINOPHILS 4 %; EOSINOPHILS ABSOLUTE (CALC) 0.55 10/3/uL (0.0-0.53); LYMPHOCYTES 3 %; LYMPHOCYTES ABSOLUTE (CALC) 0.41 10/3/uL (0.67-4.30); MONOCYTES 9 %; MONOCYTES ABSOLUTE (CALC) 1.23 10/3/uL (0.21-1.20); NEUTROPHILS ABSOLUTE (CALC) 11.51 10/3/uL (2.02-8.40); SEGMENTED NEUTROPHIL (0) 81 %; TOTAL NUCLEATED CELLS 100
[2016-12-12 08:06] LABS: PLATELET ESTIMATE INC (ADEQUATE); RBC MORPHOLOGY NORM (NORMAL)
[2016-12-13 04:42] LABS: CHLORIDE, SERUM 112 MMOL/L (96-112); CO2 (CARBON DIOXIDE) 24 MMOL/L (24-34); CREATININE 0.55 MG/DL (0.55-1.02); GFR AFRICAN AMERICAN 109 ML/MIN (>=60); GFR NON AFRICAN AMERICAN 94 ML/MIN (>=60); GLUCOSE, SERUM 121 MG/DL (60-99); PHOSPHORUS, SERUM 3.2 MG/DL (2.5-4.5); POTASSIUM, SERUM 4.2 MMOL/L (3.5-5.3); SODIUM, SERUM 143 MMOL/L (135-148)
[2016-12-13 04:48] LABS: BUN (BLOOD UREA NITROGEN) 28 MG/DL (6-23)
[2016-12-14 06:33] LABS: A/G RATIO 0.4 (0.7-1.9); ALBUMIN 1.8 G/DL (3.5-5.0); CALCIUM, SERUM 7.3 MG/DL (8.5-10.4); CHLORIDE, SERUM 112 MMOL/L (96-112); CO2 (CARBON DIOXIDE) 20 MMOL/L (24-34); CREATININE 0.64 MG/DL (0.55-1.02); GFR AFRICAN AMERICAN 104 ML/MIN (>=60); GFR NON AFRICAN AMERICAN 90 ML/MIN (>=60); GLOBULIN 4.3 G/DL (2.5-4.1); GLUCOSE, SERUM 132 MG/DL (60-99); POTASSIUM, SERUM 4.5 MMOL/L (3.5-5.3); SGOT(AST) 30 U/L (5-40); SGPT(ALT) 22 U/L (5-65); SODIUM, SERUM 142 MMOL/L (135-148); TOTAL PROTEIN 6.1 G/DL (6.0-8.5)
[2016-12-14 06:34] LABS: ALKALINE PHOSPHATASE 117 U/L (45-117); BUN (BLOOD UREA NITROGEN) 35 MG/DL (6-23); TOTAL BILIRUBIN 2.3 MG/DL (0-1.2)
[2016-12-14 06:49] LABS: MEAN CORPUSCULAR VOLUME 90.3 fL (80-100); MEAN PLATELET VOLUME 12.2 fL (9.2-13.0); RBC DISTRIBUTION WIDTH 18.1 % (12.0-16.0); RED CELL COUNT 3.21 10/6/uL (4.0-5.6); WHITE BLOOD CELLS 11.7 10/3/uL (4.5-10.5)
[2016-12-14 06:53] LABS: MANUAL DIFF YES %; PLATELET COUNT 691 10/3/uL (150-400)
[2016-12-14 08:31] LABS: BAND NEUTROPHILS 20 %; BASOPHILS 1 %; BASOPHILS ABSOLUTE (CALC) 0.12 10/3/uL (0.0-0.16); EOSINOPHILS 2 %; EOSINOPHILS ABSOLUTE (CALC) 0.23 10/3/uL (0.0-0.53); LYMPHOCYTES 19 %; LYMPHOCYTES ABSOLUTE (CALC) 2.22 10/3/uL (0.67-4.30); MONOCYTES 12 %; NEUTROPHILS ABSOLUTE (CALC) 7.72 10/3/uL (2.02-8.40); SEGMENTED NEUTROPHIL (0) 46 %; TOTAL NUCLEATED CELLS 100
[2016-12-14 08:32] LABS: ANISOCYTOSIS 1+ (5-10/OIF) (0-5/OIF); PLATELET ESTIMATE INC (ADEQUATE); POLYCHROMASIA 1+ (2-5/OIF) (0-1/OIF); TEARDROP SHAPED RBCS OCC (0-2/OIF)
[2016-12-15 04:56] LABS: A/G RATIO 0.4 (0.7-1.9); ALBUMIN 1.6 G/DL (3.5-5.0); CHLORIDE, SERUM 113 MMOL/L (96-112); CO2 (CARBON DIOXIDE) 21 MMOL/L (24-34); CREATININE 0.85 MG/DL (0.55-1.02); GFR AFRICAN AMERICAN 80 ML/MIN (>=60); GFR NON AFRICAN AMERICAN 69 ML/MIN (>=60); GLOBULIN 4.3 G/DL (2.5-4.1); GLUCOSE, SERUM 126 MG/DL (60-99); POTASSIUM, SERUM 5.4 MMOL/L (3.5-5.3); SGOT(AST) 24 U/L (5-40); SGPT(ALT) 18 U/L (5-65); SODIUM, SERUM 140 MMOL/L (135-148); TOTAL BILIRUBIN 2.1 MG/DL (0-1.2); TOTAL PROTEIN 5.9 G/DL (6.0-8.5)
[2016-12-15 05:09] LABS: ALKALINE PHOSPHATASE 103 U/L (45-117); BUN (BLOOD UREA NITROGEN) 49 MG/DL (6-23); CALCIUM, SERUM 8.9 MG/DL (8.5-10.4); PHOSPHORUS, SERUM 4.5 MG/DL (2.5-4.5)
[2016-12-15 06:21] LABS: HEMATOCRIT 28.7 % (36.0-48.0); HEMOGLOBIN 8.9 g/dL (12.0-16.0); MEAN CORPUSCULAR HEMOGLOB 28.1 pg (26.0-34.0); MEAN CORPUSCULAR VOLUME 90.5 fL (80-100); MEAN PLATELET VOLUME 12.2 fL (9.2-13.0); NUCLEATED RED BLOOD CELLS 0.2 /100WBC (0-0); PLATELET COUNT 687 10/3/uL (150-400); RBC DISTRIBUTION WIDTH 17.9 % (12.0-16.0); RED CELL COUNT 3.17 10/6/uL (4.0-5.6)
[2016-12-15 06:22] LABS: MANUAL DIFF YES %; WHITE BLOOD CELLS 18.5 10/3/uL (4.5-10.5)
[2016-12-15 07:10] LABS: ANISOCYTOSIS 1+ (5-10/OIF) (0-5/OIF); BAND NEUTROPHILS 37 %; BASOPHILS 1 %; BASOPHILS ABSOLUTE (CALC) 0.19 10/3/uL (0.0-0.16); LYMPHOCYTES 12 %; LYMPHOCYTES ABSOLUTE (CALC) 2.22 10/3/uL (0.67-4.30); MONOCYTES 8 %; MONOCYTES ABSOLUTE (CALC) 1.48 10/3/uL (0.21-1.20); NEUTROPHILS ABSOLUTE (CALC) 14.62 10/3/uL (2.02-8.40); PLATELET ESTIMATE INC (ADEQUATE); POLYCHROMASIA 1+ (2-5/OIF) (0-1/OIF); SEGMENTED NEUTROPHIL (0) 42 %; TOTAL NUCLEATED CELLS 100
[2016-12-15 07:11] LABS: HYPOCHROMIA 1+ (3-10/OIF) (0-2/OIF); TARGET CELLS OCC (1-2/OIF) (0-1/OIF); TEARDROP SHAPED RBCS OCC (0-2/OIF); TOXIC GRANULATION 1+; VACUOLATED NEUTROPHILES OCC
[2016-12-15 07:12] LABS: HELMET CELLS OCC (0-2/OIF)
[2016-12-16 04:20] LABS: HEMATOCRIT 26.1 % (36.0-48.0); HEMOGLOBIN 8.3 g/dL (12.0-16.0); MEAN CORPUS HGB CONC 31.8 g/dL (32.0-36.0); MEAN CORPUSCULAR HEMOGLOB 28.6 pg (26.0-34.0); WHITE BLOOD CELLS 14.4 10/3/uL (4.5-10.5)
[2016-12-16 04:23] LABS: PLATELET COUNT 701 10/3/uL (150-400)
[2016-12-16 04:24] LABS: MANUAL DIFF YES %
[2016-12-16 04:33] LABS: A/G RATIO 0.4 (0.7-1.9); ALBUMIN 1.4 G/DL (3.5-5.0); ALKALINE PHOSPHATASE 107 U/L (45-117); BUN (BLOOD UREA NITROGEN) 42 MG/DL (6-23); CALCIUM, SERUM 8.4 MG/DL (8.5-10.4); CHLORIDE, SERUM 110 MMOL/L (96-112); CO2 (CARBON DIOXIDE) 24 MMOL/L (24-34); CREATININE 0.81 MG/DL (0.55-1.02); GFR AFRICAN AMERICAN 85 ML/MIN (>=60); GFR NON AFRICAN AMERICAN 73 ML/MIN (>=60); GLOBULIN 3.9 G/DL (2.5-4.1); GLUCOSE, SERUM 118 MG/DL (60-99); PHOSPHORUS, SERUM 3.5 MG/DL (2.5-4.5); POTASSIUM, SERUM 4.2 MMOL/L (3.5-5.3); SGOT(AST) 19 U/L (5-40); SGPT(ALT) 18 U/L (5-65); SODIUM, SERUM 141 MMOL/L (135-148); TOTAL BILIRUBIN 1.7 MG/DL (0-1.2); TOTAL PROTEIN 5.3 G/DL (6.0-8.5)
[2016-12-16 05:11] LABS: BAND NEUTROPHILS 59 %; BASOPHILS 13 %; BASOPHILS ABSOLUTE (CALC) 1.87 10/3/uL (0.0-0.16); IMMATURE GRANS ABSOLUTE (CALC) 0.72 10/3/uL (0.0-0.11); METAMYELOCYTES 5 %; MONOCYTES 10 %; MONOCYTES ABSOLUTE (CALC) 1.44 10/3/uL (0.21-1.20); NEUTROPHILS ABSOLUTE (CALC) 10.37 10/3/uL (2.02-8.40); SEGMENTED NEUTROPHIL (0) 13 %; TOTAL NUCLEATED CELLS 100
[2016-12-16 05:13] LABS: ANISOCYTOSIS 1+ (5-10/OIF) (0-5/OIF); POLYCHROMASIA 1+ (2-5/OIF) (0-1/OIF); TARGET CELLS OCC (1-2/OIF) (0-1/OIF)
[2016-12-17 04:53] LABS: A/G RATIO 0.4 (0.7-1.9); ALBUMIN 1.4 G/DL (3.5-5.0); CALCIUM, SERUM 8.1 MG/DL (8.5-10.4); CHLORIDE, SERUM 109 MMOL/L (96-112); CO2 (CARBON DIOXIDE) 26 MMOL/L (24-34); CREATININE 0.65 MG/DL (0.55-1.02); GFR AFRICAN AMERICAN 104 ML/MIN (>=60); GFR NON AFRICAN AMERICAN 89 ML/MIN (>=60); GLOBULIN 3.8 G/DL (2.5-4.1); GLUCOSE, SERUM 134 MG/DL (60-99); POTASSIUM, SERUM 3.6 MMOL/L (3.5-5.3); SGOT(AST) 15 U/L (5-40); SGPT(ALT) 15 U/L (5-65); SODIUM, SERUM 140 MMOL/L (135-148); TOTAL BILIRUBIN 1.4 MG/DL (0-1.2); TOTAL PROTEIN 5.2 G/DL (6.0-8.5)
[2016-12-17 04:55] LABS: HEMATOCRIT 28.5 % (36.0-48.0); HEMOGLOBIN 8.8 g/dL (12.0-16.0); MEAN CORPUS HGB CONC 30.9 g/dL (32.0-36.0); MEAN CORPUSCULAR VOLUME 90.8 fL (80-100); MEAN PLATELET VOLUME 11.9 fL (9.2-13.0); NUCLEATED RED BLOOD CELLS 0.6 /100WBC (0-0); RBC DISTRIBUTION WIDTH 17.8 % (12.0-16.0); RED CELL COUNT 3.14 10/6/uL (4.0-5.6)
[2016-12-17 04:56] LABS: ALKALINE PHOSPHATASE 120 U/L (45-117); BUN (BLOOD UREA NITROGEN) 28 MG/DL (6-23)
[2016-12-17 04:58] LABS: MANUAL DIFF YES %; PLATELET COUNT 740 10/3/uL (150-400)
[2016-12-17 05:12] LABS: ANISOCYTOSIS 1+ (5-10/OIF) (0-5/OIF); BAND NEUTROPHILS 12 %; EOSINOPHILS 7 %; EOSINOPHILS ABSOLUTE (CALC) 0.84 10/3/uL (0.0-0.53); GIANT PLATELET FEW; IMMATURE GRANS ABSOLUTE (CALC) 0.24 10/3/uL (0.0-0.11); LYMPHOCYTES 22 %; LYMPHOCYTES ABSOLUTE (CALC) 2.64 10/3/uL (0.67-4.30); METAMYELOCYTES 2 %; MONOCYTES 3 %; MONOCYTES ABSOLUTE (CALC) 0.36 10/3/uL (0.21-1.20); NEUTROPHILS ABSOLUTE (CALC) 7.92 10/3/uL (2.02-8.40); POLYCHROMASIA 1+ (2-5/OIF) (0-1/OIF); SEGMENTED NEUTROPHIL (0) 54 %; TOTAL NUCLEATED CELLS 100
[2016-12-17 12:23] LABS: PHOSPHORUS, SERUM 2.6 MG/DL (2.5-4.5)
[2016-12-18 04:55] LABS: HEMATOCRIT 26.7 % (36.0-48.0); HEMOGLOBIN 8.5 g/dL (12.0-16.0); MEAN CORPUS HGB CONC 31.8 g/dL (32.0-36.0); MEAN CORPUSCULAR HEMOGLOB 28.6 pg (26.0-34.0); MEAN CORPUSCULAR VOLUME 89.9 fL (80-100); MEAN PLATELET VOLUME 11.5 fL (9.2-13.0); NUCLEATED RED BLOOD CELLS 0.5 /100WBC (0-0); PLATELET COUNT 699 10/3/uL (150-400); RBC DISTRIBUTION WIDTH 17.8 % (12.0-16.0); RED CELL COUNT 2.97 10/6/uL (4.0-5.6); WHITE BLOOD CELLS 14.4 10/3/uL (4.5-10.5)
[2016-12-18 05:02] LABS: MANUAL DIFF YES %
[2016-12-18 05:09] LABS: BUN (BLOOD UREA NITROGEN) 31 MG/DL (6-23); CALCIUM, SERUM 8.3 MG/DL (8.5-10.4); CHLORIDE, SERUM 108 MMOL/L (96-112); CO2 (CARBON DIOXIDE) 23 MMOL/L (24-34); CREATININE 0.62 MG/DL (0.55-1.02); GFR AFRICAN AMERICAN 105 ML/MIN (>=60); GFR NON AFRICAN AMERICAN 91 ML/MIN (>=60); GLUCOSE, SERUM 142 MG/DL (60-99); PHOSPHORUS, SERUM 2.7 MG/DL (2.5-4.5); POTASSIUM, SERUM 3.6 MMOL/L (3.5-5.3); PREALBUMIN 5.9 MG/DL (17.0-43.0); SODIUM, SERUM 138 MMOL/L (135-148)
[2016-12-18 05:10] LABS: TRIGLYCERIDE 92 MG/DL (< 150)
[2016-12-18 08:18] LABS: BAND NEUTROPHILS 18 %; EOSINOPHILS 2 %; EOSINOPHILS ABSOLUTE (CALC) 0.29 10/3/uL (0.0-0.53); LYMPHOCYTES 16 %; MONOCYTES 12 %; MONOCYTES ABSOLUTE (CALC) 1.73 10/3/uL (0.21-1.20); NEUTROPHILS ABSOLUTE (CALC) 10.08 10/3/uL (2.02-8.40); SEGMENTED NEUTROPHIL (0) 49 %; TOTAL NUCLEATED CELLS 100
[2016-12-18 08:19] LABS: METAMYELOCYTES 3 %; PLATELET ESTIMATE INC (ADEQUATE)
[2016-12-18 08:20] LABS: POLYCHROMASIA 1+ (2-5/OIF) (0-1/OIF); STOMATOCYTES 1+ (3-10/OIF) (0-2/OIF)
[2016-12-19 05:12] LABS: HEMATOCRIT 28.2 % (36.0-48.0); HEMOGLOBIN 8.8 g/dL (12.0-16.0); MEAN CORPUS HGB CONC 31.2 g/dL (32.0-36.0); MEAN CORPUSCULAR HEMOGLOB 27.9 pg (26.0-34.0); MEAN CORPUSCULAR VOLUME 89.5 fL (80-100); MEAN PLATELET VOLUME 11.4 fL (9.2-13.0); NUCLEATED RED BLOOD CELLS 0.5 /100WBC (0-0); RBC DISTRIBUTION WIDTH 17.8 % (12.0-16.0); RED CELL COUNT 3.15 10/6/uL (4.0-5.6); WHITE BLOOD CELLS 15.6 10/3/uL (4.5-10.5)
[2016-12-19 05:14] LABS: MANUAL DIFF YES %; PLATELET COUNT 702 10/3/uL (150-400)
[2016-12-19 05:18] LABS: BUN (BLOOD UREA NITROGEN) 29 MG/DL (6-23); CALCIUM, SERUM 7.9 MG/DL (8.5-10.4); CHLORIDE, SERUM 108 MMOL/L (96-112); CO2 (CARBON DIOXIDE) 23 MMOL/L (24-34); CREATININE 0.55 MG/DL (0.55-1.02); GFR AFRICAN AMERICAN 109 ML/MIN (>=60); GFR NON AFRICAN AMERICAN 94 ML/MIN (>=60); GLUCOSE, SERUM 121 MG/DL (60-99); PHOSPHORUS, SERUM 2.4 MG/DL (2.5-4.5); POTASSIUM, SERUM 3.5 MMOL/L (3.5-5.3); SODIUM, SERUM 139 MMOL/L (135-148)
[2016-12-19 06:57] LABS: BAND NEUTROPHILS 41 %; EOSINOPHILS 1 %; EOSINOPHILS ABSOLUTE (CALC) 0.16 10/3/uL (0.0-0.53); IMMATURE GRANS ABSOLUTE (CALC) 0.31 10/3/uL (0.0-0.11); LYMPHOCYTES 7 %; LYMPHOCYTES ABSOLUTE (CALC) 1.09 10/3/uL (0.67-4.30); METAMYELOCYTES 2 %; MONOCYTES 11 %; MONOCYTES ABSOLUTE (CALC) 1.72 10/3/uL (0.21-1.20); NEUTROPHILS ABSOLUTE (CALC) 12.32 10/3/uL (2.02-8.40); SEGMENTED NEUTROPHIL (0) 38 %; TOTAL NUCLEATED CELLS 100
[2016-12-19 06:58] LABS: ANISOCYTOSIS 1+ (5-10/OIF) (0-5/OIF); GIANT PLATELET OCC
[2016-12-19 06:59] LABS: POLYCHROMASIA 1+ (2-5/OIF) (0-1/OIF); TOXIC GRANULATION 1+
[2016-12-19 07:05] LABS: PROCALCITONIN 0.51 ng/mL (<0.5)
[2016-12-19 13:50] LABS: PHOSPHORUS, SERUM 3.1 MG/DL (2.5-4.5)
[2016-12-19 13:52] LABS: POTASSIUM, SERUM 4.4 MMOL/L (3.5-5.3)
[2016-12-20 04:14] LABS: BUN (BLOOD UREA NITROGEN) 28 MG/DL (6-23); CHLORIDE, SERUM 109 MMOL/L (96-112); CO2 (CARBON DIOXIDE) 22 MMOL/L (24-34); CREATININE 0.49 MG/DL (0.55-1.02); GFR AFRICAN AMERICAN 114 ML/MIN (>=60); GFR NON AFRICAN AMERICAN 98 ML/MIN (>=60); GLUCOSE, SERUM 139 MG/DL (60-99); PHOSPHORUS, SERUM 2.5 MG/DL (2.5-4.5); POTASSIUM, SERUM 3.7 MMOL/L (3.5-5.3); SODIUM, SERUM 140 MMOL/L (135-148)
[2016-12-20 04:22] LABS: HEMATOCRIT 29.4 % (36.0-48.0); HEMOGLOBIN 9.3 g/dL (12.0-16.0); MANUAL DIFF YES %; MEAN CORPUS HGB CONC 31.6 g/dL (32.0-36.0); MEAN CORPUSCULAR HEMOGLOB 28.2 pg (26.0-34.0); MEAN CORPUSCULAR VOLUME 89.1 fL (80-100); MEAN PLATELET VOLUME 11.3 fL (9.2-13.0); NUCLEATED RED BLOOD CELLS 0.4 /100WBC (0-0); PLATELET COUNT 679 10/3/uL (150-400); RBC DISTRIBUTION WIDTH 17.9 % (12.0-16.0); WHITE BLOOD CELLS 18.9 10/3/uL (4.5-10.5)
[2016-12-20 04:45] LABS: ANISOCYTOSIS 1+ (5-10/OIF) (0-5/OIF); BAND NEUTROPHILS 9 %; EOSINOPHILS 1 %; EOSINOPHILS ABSOLUTE (CALC) 0.19 10/3/uL (0.0-0.53); IMMATURE GRANS ABSOLUTE (CALC) 0.57 10/3/uL (0.0-0.11); LYMPHOCYTES 10 %; LYMPHOCYTES ABSOLUTE (CALC) 1.89 10/3/uL (0.67-4.30); METAMYELOCYTES 2 %; MONOCYTES 3 %; MONOCYTES ABSOLUTE (CALC) 0.57 10/3/uL (0.21-1.20); MYELOCYTES 1 %; NEUTROPHILS ABSOLUTE (CALC) 15.69 10/3/uL (2.02-8.40); PLATELET ESTIMATE INC (ADEQUATE); SEGMENTED NEUTROPHIL (0) 74 %; TOTAL NUCLEATED CELLS 100
[2016-12-20 04:46] LABS: SPHEROCYTES OCC (0-2/OIF); TARGET CELLS OCC (1-2/OIF) (0-1/OIF)
[2016-12-21 04:36] LABS: HEMOGLOBIN 8.1 g/dL (12.0-16.0); MEAN CORPUS HGB CONC 31.8 g/dL (32.0-36.0); MEAN CORPUSCULAR HEMOGLOB 28.3 pg (26.0-34.0); MEAN CORPUSCULAR VOLUME 89.2 fL (80-100); MEAN PLATELET VOLUME 11.3 fL (9.2-13.0); PLATELET COUNT 618 10/3/uL (150-400); RBC DISTRIBUTION WIDTH 18.1 % (12.0-16.0); RED CELL COUNT 2.86 10/6/uL (4.0-5.6); WHITE BLOOD CELLS 15.9 10/3/uL (4.5-10.5)
[2016-12-21 04:37] LABS: HEMATOCRIT 25.5 % (36.0-48.0); MANUAL DIFF YES %
[2016-12-21 04:46] LABS: BUN (BLOOD UREA NITROGEN) 31 MG/DL (6-23); CALCIUM, SERUM 7.4 MG/DL (8.5-10.4); CHLORIDE, SERUM 109 MMOL/L (96-112); CO2 (CARBON DIOXIDE) 26 MMOL/L (24-34); CREATININE 0.54 MG/DL (0.55-1.02); GFR AFRICAN AMERICAN 110 ML/MIN (>=60); GFR NON AFRICAN AMERICAN 95 ML/MIN (>=60); GLUCOSE, SERUM 101 MG/DL (60-99); PHOSPHORUS, SERUM 3.4 MG/DL (2.5-4.5); POTASSIUM, SERUM 4.3 MMOL/L (3.5-5.3); SODIUM, SERUM 139 MMOL/L (135-148)
[2016-12-21 05:07] LABS: BAND NEUTROPHILS 15 %; EOSINOPHILS 1 %; EOSINOPHILS ABSOLUTE (CALC) 0.16 10/3/uL (0.0-0.53); IMMATURE GRANS ABSOLUTE (CALC) 0.32 10/3/uL (0.0-0.11); LYMPHOCYTES 10 %; LYMPHOCYTES ABSOLUTE (CALC) 1.59 10/3/uL (0.67-4.30); METAMYELOCYTES 1 %; MONOCYTES 5 %; MYELOCYTES 1 %; NEUTROPHILS ABSOLUTE (CALC) 13.04 10/3/uL (2.02-8.40); SEGMENTED NEUTROPHIL (0) 67 %; TOTAL NUCLEATED CELLS 100
[2016-12-21 05:08] LABS: ANISOCYTOSIS 1+ (5-10/OIF) (0-5/OIF); PLATELET ESTIMATE INC (ADEQUATE)
[2016-12-21 16:12] LABS: HEMATOCRIT 26.3 % (36.0-48.0); HEMOGLOBIN 8.2 g/dL (12.0-16.0)
[2016-12-22 04:33] LABS: BUN (BLOOD UREA NITROGEN) 26 MG/DL (6-23); CALCIUM, SERUM 7.8 MG/DL (8.5-10.4); CHLORIDE, SERUM 107 MMOL/L (96-112); CO2 (CARBON DIOXIDE) 23 MMOL/L (24-34); CREATININE 0.42 MG/DL (0.55-1.02); GFR AFRICAN AMERICAN 120 ML/MIN (>=60); GFR NON AFRICAN AMERICAN 103 ML/MIN (>=60); GLUCOSE, SERUM 106 MG/DL (60-99); PHOSPHORUS, SERUM 2.6 MG/DL (2.5-4.5); SODIUM, SERUM 138 MMOL/L (135-148)
[2016-12-22 10:42] LABS: HEMATOCRIT 26.2 % (36.0-48.0); HEMOGLOBIN 8.3 g/dL (12.0-16.0); MEAN CORPUS HGB CONC 31.7 g/dL (32.0-36.0); MEAN CORPUSCULAR HEMOGLOB 28.2 pg (26.0-34.0); MEAN CORPUSCULAR VOLUME 89.1 fL (80-100); MEAN PLATELET VOLUME 10.7 fL (9.2-13.0); NUCLEATED RED BLOOD CELLS 0.6 /100WBC (0-0); PLATELET COUNT 588 10/3/uL (150-400); RBC DISTRIBUTION WIDTH 18.1 % (12.0-16.0); RED CELL COUNT 2.94 10/6/uL (4.0-5.6); WHITE BLOOD CELLS 12.2 10/3/uL (4.5-10.5)
[2016-12-22 10:44] LABS: MANUAL DIFF YES %
[2016-12-22 10:55] LABS: ALBUMIN 1.3 G/DL (3.5-5.0); DIRECT BILIRUBIN 0.6 MG/DL (0.0-0.4); TOTAL PROTEIN 5.3 G/DL (6.0-8.5)
[2016-12-22 10:56] LABS: INDIRECT BILIRUBIN(NOT ORDER) 0.3 MG/DL (0.1-0.9); TOTAL BILIRUBIN 0.9 MG/DL (0-1.2)
[2016-12-22 11:16] LABS: ANISOCYTOSIS 1+ (5-10/OIF) (0-5/OIF); BAND NEUTROPHILS 26 %; EOSINOPHILS 1 %; EOSINOPHILS ABSOLUTE (CALC) 0.12 10/3/uL (0.0-0.53); IMMATURE GRANS ABSOLUTE (CALC) 0.37 10/3/uL (0.0-0.11); LYMPHOCYTES 25 %; LYMPHOCYTES ABSOLUTE (CALC) 3.05 10/3/uL (0.67-4.30); METAMYELOCYTES 2 %; MONOCYTES 8 %; MONOCYTES ABSOLUTE (CALC) 0.98 10/3/uL (0.21-1.20); MYELOCYTES 1 %; NEUTROPHILS ABSOLUTE (CALC) 7.69 10/3/uL (2.02-8.40); PLATELET ESTIMATE SLT INC (ADEQUATE); POLYCHROMASIA 1+ (2-5/OIF) (0-1/OIF); SEGMENTED NEUTROPHIL (0) 37 %; TARGET CELLS OCC (1-2/OIF) (0-1/OIF); TOTAL NUCLEATED CELLS 100; TOXIC GRANULATION 1+; VACUOLATED NEUTROPHILES OCC
[2016-12-22 11:17] LABS: HELMET CELLS OCC (0-2/OIF); HYPOCHROMIA 1+ (3-10/OIF) (0-2/OIF); MACROCYTES 1+ (5-10/OIF) (0-5/OIF); TEARDROP SHAPED RBCS OCC (0-2/OIF)
[2016-12-22 11:18] LABS: ELLIPTOCYTES 1+ (3-10/OIF) (0-2/OIF)
[2016-12-23 03:48] LABS: HEMATOCRIT 26.9 % (36.0-48.0); HEMOGLOBIN 8.4 g/dL (12.0-16.0); MEAN CORPUS HGB CONC 31.2 g/dL (32.0-36.0); MEAN CORPUSCULAR HEMOGLOB 28.2 pg (26.0-34.0); MEAN CORPUSCULAR VOLUME 90.3 fL (80-100); PLATELET COUNT 548 10/3/uL (150-400); RBC DISTRIBUTION WIDTH 18.2 % (12.0-16.0); RED CELL COUNT 2.98 10/6/uL (4.0-5.6); WHITE BLOOD CELLS 9.8 10/3/uL (4.5-10.5)
[2016-12-23 03:49] LABS: MANUAL DIFF YES %
[2016-12-23 04:05] LABS: A/G RATIO 0.3 (0.7-1.9); ALBUMIN 1.3 G/DL (3.5-5.0); ALKALINE PHOSPHATASE 150 U/L (45-117); BUN (BLOOD UREA NITROGEN) 24 MG/DL (6-23); CALCIUM, SERUM 7.3 MG/DL (8.5-10.4); CHLORIDE, SERUM 106 MMOL/L (96-112); CO2 (CARBON DIOXIDE) 23 MMOL/L (24-34); GFR AFRICAN AMERICAN 121 ML/MIN (>=60); GFR NON AFRICAN AMERICAN 105 ML/MIN (>=60); GLOBULIN 3.9 G/DL (2.5-4.1); GLUCOSE, SERUM 123 MG/DL (60-99); PHOSPHORUS, SERUM 2.5 MG/DL (2.5-4.5); POTASSIUM, SERUM 3.8 MMOL/L (3.5-5.3); SGOT(AST) 28 U/L (5-40); SGPT(ALT) 16 U/L (5-65); SODIUM, SERUM 138 MMOL/L (135-148); TOTAL BILIRUBIN 0.9 MG/DL (0-1.2); TOTAL PROTEIN 5.2 G/DL (6.0-8.5)
[2016-12-23 04:07] LABS: ANISOCYTOSIS 1+ (5-10/OIF) (0-5/OIF); BAND NEUTROPHILS 5 %; IMMATURE GRANS ABSOLUTE (CALC) 0.29 10/3/uL (0.0-0.11); LYMPHOCYTES 15 %; LYMPHOCYTES ABSOLUTE (CALC) 1.47 10/3/uL (0.67-4.30); METAMYELOCYTES 3 %; MONOCYTES 8 %; MONOCYTES ABSOLUTE (CALC) 0.78 10/3/uL (0.21-1.20); NEUTROPHILS ABSOLUTE (CALC) 7.25 10/3/uL (2.02-8.40); PLATELET ESTIMATE SLT INC (ADEQUATE); SEGMENTED NEUTROPHIL (0) 69 %; TOTAL NUCLEATED CELLS 100
[2016-12-24 03:48] LABS: BASOPHILS 0.4 %; BASOPHILS ABSOLUTE 0.04 10/3/uL (0.0-0.16); EOSINOPHILS 1.4 %; EOSINOPHILS ABSOLUTE 0.14 10/3/uL (0.0-0.53); HEMOGLOBIN 8.2 g/dL (12.0-16.0); IMMATURE GRANULOCYTES 1.6 %; IMMATURE GRANULOCYTES ABSOLUTE 0.16 10/3/uL (0.0-0.11); LYMPHOCYTES 28.3 %; LYMPHOCYTES ABSOLUTE 2.89 10/3/uL (0.67-4.30); MEAN CORPUS HGB CONC 31.5 g/dL (32.0-36.0); MEAN CORPUSCULAR HEMOGLOB 28.1 pg (26.0-34.0); MEAN PLATELET VOLUME 10.9 fL (9.2-13.0); MONOCYTES 8.1 %; MONOCYTES ABSOLUTE 0.83 10/3/uL (0.21-1.20); NEUTROPHILS 60.2 %; NEUTROPHILS ABSOLUTE 6.16 10/3/uL (2.02-8.40); PLATELET COUNT 517 10/3/uL (150-400); RBC DISTRIBUTION WIDTH 18.5 % (12.0-16.0); RED CELL COUNT 2.92 10/6/uL (4.0-5.6); WHITE BLOOD CELLS 10.2 10/3/uL (4.5-10.5)
[2016-12-24 03:50] LABS: MANUAL DIFF NO %
[2016-12-24 04:02] LABS: BUN (BLOOD UREA NITROGEN) 26 MG/DL (6-23); CALCIUM, SERUM 7.3 MG/DL (8.5-10.4); CHLORIDE, SERUM 105 MMOL/L (96-112); CO2 (CARBON DIOXIDE) 24 MMOL/L (24-34); CREATININE 0.42 MG/DL (0.55-1.02); GFR AFRICAN AMERICAN 120 ML/MIN (>=60); GFR NON AFRICAN AMERICAN 103 ML/MIN (>=60); GLUCOSE, SERUM 115 MG/DL (60-99); PHOSPHORUS, SERUM 2.7 MG/DL (2.5-4.5); POTASSIUM, SERUM 3.8 MMOL/L (3.5-5.3); SODIUM, SERUM 137 MMOL/L (135-148)
[2016-12-25 05:39] LABS: BUN (BLOOD UREA NITROGEN) 29 MG/DL (6-23); CALCIUM, SERUM 7.1 MG/DL (8.5-10.4); CHLORIDE, SERUM 105 MMOL/L (96-112); CO2 (CARBON DIOXIDE) 24 MMOL/L (24-34); CREATININE 0.49 MG/DL (0.55-1.02); GFR AFRICAN AMERICAN 114 ML/MIN (>=60); GFR NON AFRICAN AMERICAN 98 ML/MIN (>=60); GLUCOSE, SERUM 109 MG/DL (60-99); PHOSPHORUS, SERUM 3.2 MG/DL (2.5-4.5); SODIUM, SERUM 136 MMOL/L (135-148)
[2016-12-25 09:44] LABS: HEMATOCRIT 26.8 % (36.0-48.0); HEMOGLOBIN 8.2 g/dL (12.0-16.0); MEAN CORPUS HGB CONC 30.6 g/dL (32.0-36.0); MEAN CORPUSCULAR VOLUME 91.5 fL (80-100); MEAN PLATELET VOLUME 10.7 fL (9.2-13.0); NUCLEATED RED BLOOD CELLS 0.5 /100WBC (0-0); PLATELET COUNT 467 10/3/uL (150-400); RBC DISTRIBUTION WIDTH 18.6 % (12.0-16.0); RED CELL COUNT 2.93 10/6/uL (4.0-5.6)
[2016-12-25 09:45] LABS: MANUAL DIFF YES %; WHITE BLOOD CELLS 14.6 10/3/uL (4.5-10.5)
[2016-12-25 09:59] LABS: BUN (BLOOD UREA NITROGEN) 28 MG/DL (6-23); CALCIUM, SERUM 7.5 MG/DL (8.5-10.4); CHLORIDE, SERUM 106 MMOL/L (96-112); CO2 (CARBON DIOXIDE) 23 MMOL/L (24-34); CREATININE 0.45 MG/DL (0.55-1.02); GFR AFRICAN AMERICAN 117 ML/MIN (>=60); GFR NON AFRICAN AMERICAN 101 ML/MIN (>=60); GLUCOSE, SERUM 108 MG/DL (60-99); POTASSIUM, SERUM 4.1 MMOL/L (3.5-5.3); SODIUM, SERUM 134 MMOL/L (135-148)
[2016-12-25 10:36] LABS: ANISOCYTOSIS 1+ (5-10/OIF) (0-5/OIF); EOSINOPHILS 1 %; EOSINOPHILS ABSOLUTE (CALC) 0.15 10/3/uL (0.0-0.53); LYMPHOCYTES 24 %; MONOCYTES 6 %; MONOCYTES ABSOLUTE (CALC) 0.88 10/3/uL (0.21-1.20); NEUTROPHILS ABSOLUTE (CALC) 10.07 10/3/uL (2.02-8.40); PLATELET ESTIMATE SLT INC (ADEQUATE); SEGMENTED NEUTROPHIL (0) 69 %; TOTAL NUCLEATED CELLS 100
[2016-12-26 06:25] LABS: BASOPHILS 0.3 %; BASOPHILS ABSOLUTE 0.03 10/3/uL (0.0-0.16); EOSINOPHILS 1.1 %; EOSINOPHILS ABSOLUTE 0.12 10/3/uL (0.0-0.53); HEMATOCRIT 25.9 % (36.0-48.0); HEMOGLOBIN 8.2 g/dL (12.0-16.0); IMMATURE GRANULOCYTES 0.7 %; IMMATURE GRANULOCYTES ABSOLUTE 0.08 10/3/uL (0.0-0.11); LYMPHOCYTES 28.7 %; LYMPHOCYTES ABSOLUTE 3.12 10/3/uL (0.67-4.30); MEAN CORPUS HGB CONC 31.7 g/dL (32.0-36.0); MEAN CORPUSCULAR HEMOGLOB 28.6 pg (26.0-34.0); MEAN CORPUSCULAR VOLUME 90.2 fL (80-100); MEAN PLATELET VOLUME 10.9 fL (9.2-13.0); MONOCYTES 10.3 %; MONOCYTES ABSOLUTE 1.12 10/3/uL (0.21-1.20); NEUTROPHILS 58.9 %; NEUTROPHILS ABSOLUTE 6.39 10/3/uL (2.02-8.40); PLATELET COUNT 486 10/3/uL (150-400); RBC DISTRIBUTION WIDTH 18.6 % (12.0-16.0); RED CELL COUNT 2.87 10/6/uL (4.0-5.6); WHITE BLOOD CELLS 10.9 10/3/uL (4.5-10.5)
[2016-12-26 06:27] LABS: MANUAL DIFF NO %
[2016-12-26 06:46] LABS: A/G RATIO 0.3 (0.7-1.9); ALBUMIN 1.3 G/DL (3.5-5.0); BUN (BLOOD UREA NITROGEN) 27 MG/DL (6-23); CALCIUM, SERUM 7.6 MG/DL (8.5-10.4); CHLORIDE, SERUM 104 MMOL/L (96-112); CO2 (CARBON DIOXIDE) 25 MMOL/L (24-34); CREATININE 0.41 MG/DL (0.55-1.02); GFR AFRICAN AMERICAN 120 ML/MIN (>=60); GFR NON AFRICAN AMERICAN 104 ML/MIN (>=60); GLUCOSE, SERUM 106 MG/DL (60-99); PHOSPHORUS, SERUM 2.7 MG/DL (2.5-4.5); SGOT(AST) 30 U/L (5-40); SGPT(ALT) 16 U/L (5-65); SODIUM, SERUM 135 MMOL/L (135-148); TOTAL BILIRUBIN 0.8 MG/DL (0-1.2); TOTAL PROTEIN 5.3 G/DL (6.0-8.5)
[2016-12-26 06:47] LABS: ALKALINE PHOSPHATASE 130 U/L (45-117)
[2016-12-27 06:13] LABS: BASOPHILS 0.3 %; BASOPHILS ABSOLUTE 0.04 10/3/uL (0.0-0.16); EOSINOPHILS 0.7 %; EOSINOPHILS ABSOLUTE 0.08 10/3/uL (0.0-0.53); HEMATOCRIT 25.7 % (36.0-48.0); HEMOGLOBIN 8.1 g/dL (12.0-16.0); IMMATURE GRANULOCYTES 0.7 %; IMMATURE GRANULOCYTES ABSOLUTE 0.08 10/3/uL (0.0-0.11); LYMPHOCYTES 24.8 %; LYMPHOCYTES ABSOLUTE 3.05 10/3/uL (0.67-4.30); MEAN CORPUS HGB CONC 31.5 g/dL (32.0-36.0); MEAN CORPUSCULAR HEMOGLOB 28.4 pg (26.0-34.0); MEAN CORPUSCULAR VOLUME 90.2 fL (80-100); MEAN PLATELET VOLUME 10.6 fL (9.2-13.0); MONOCYTES 10.1 %; MONOCYTES ABSOLUTE 1.24 10/3/uL (0.21-1.20); NEUTROPHILS 63.4 %; NEUTROPHILS ABSOLUTE 7.79 10/3/uL (2.02-8.40); PLATELET COUNT 466 10/3/uL (150-400); RBC DISTRIBUTION WIDTH 18.7 % (12.0-16.0); RED CELL COUNT 2.85 10/6/uL (4.0-5.6); WHITE BLOOD CELLS 12.3 10/3/uL (4.5-10.5)
[2016-12-27 06:15] LABS: MANUAL DIFF NO %
[2016-12-27 06:22] LABS: BUN (BLOOD UREA NITROGEN) 25 MG/DL (6-23); CALCIUM, SERUM 7.5 MG/DL (8.5-10.4); CHLORIDE, SERUM 104 MMOL/L (96-112); CO2 (CARBON DIOXIDE) 24 MMOL/L (24-34); CREATININE 0.39 MG/DL (0.55-1.02); GFR AFRICAN AMERICAN 122 ML/MIN (>=60); GFR NON AFRICAN AMERICAN 106 ML/MIN (>=60); GLUCOSE, SERUM 99 MG/DL (60-99); PHOSPHORUS, SERUM 2.7 MG/DL (2.5-4.5); SODIUM, SERUM 132 MMOL/L (135-148)
[2016-12-28 05:55] LABS: BASOPHILS 0.3 %; BASOPHILS ABSOLUTE 0.03 10/3/uL (0.0-0.16); EOSINOPHILS 0.7 %; EOSINOPHILS ABSOLUTE 0.06 10/3/uL (0.0-0.53); HEMATOCRIT 24.5 % (36.0-48.0); HEMOGLOBIN 7.8 g/dL (12.0-16.0); IMMATURE GRANULOCYTES 0.5 %; IMMATURE GRANULOCYTES ABSOLUTE 0.04 10/3/uL (0.0-0.11); LYMPHOCYTES 33.1 %; LYMPHOCYTES ABSOLUTE 2.93 10/3/uL (0.67-4.30); MEAN CORPUS HGB CONC 31.8 g/dL (32.0-36.0); MEAN CORPUSCULAR HEMOGLOB 28.7 pg (26.0-34.0); MEAN CORPUSCULAR VOLUME 90.1 fL (80-100); MEAN PLATELET VOLUME 10.3 fL (9.2-13.0); MONOCYTES 12.3 %; MONOCYTES ABSOLUTE 1.09 10/3/uL (0.21-1.20); NEUTROPHILS 53.1 %; NEUTROPHILS ABSOLUTE 4.71 10/3/uL (2.02-8.40); PLATELET COUNT 436 10/3/uL (150-400); RBC DISTRIBUTION WIDTH 18.9 % (12.0-16.0); RED CELL COUNT 2.72 10/6/uL (4.0-5.6); WHITE BLOOD CELLS 8.9 10/3/uL (4.5-10.5)
[2016-12-28 05:58] LABS: MANUAL DIFF NO %
[2016-12-28 06:11] LABS: BUN (BLOOD UREA NITROGEN) 24 MG/DL (6-23); CALCIUM, SERUM 7.4 MG/DL (8.5-10.4); CHLORIDE, SERUM 105 MMOL/L (96-112); CO2 (CARBON DIOXIDE) 22 MMOL/L (24-34); CREATININE 0.38 MG/DL (0.55-1.02); GFR AFRICAN AMERICAN 124 ML/MIN (>=60); GFR NON AFRICAN AMERICAN 107 ML/MIN (>=60); GLUCOSE, SERUM 126 MG/DL (60-99); PHOSPHORUS, SERUM 2.7 MG/DL (2.5-4.5); SODIUM, SERUM 132 MMOL/L (135-148)
[2016-12-29 10:48] LABS: BASOPHILS 0.5 %; BASOPHILS ABSOLUTE 0.04 10/3/uL (0.0-0.16); EOSINOPHILS 1.1 %; EOSINOPHILS ABSOLUTE 0.09 10/3/uL (0.0-0.53); HEMATOCRIT 26.8 % (36.0-48.0); HEMOGLOBIN 8.4 g/dL (12.0-16.0); IMMATURE GRANULOCYTES 0.5 %; IMMATURE GRANULOCYTES ABSOLUTE 0.04 10/3/uL (0.0-0.11); LYMPHOCYTES ABSOLUTE 2.67 10/3/uL (0.67-4.30); MANUAL DIFF NO %; MEAN CORPUS HGB CONC 31.3 g/dL (32.0-36.0); MEAN CORPUSCULAR HEMOGLOB 28.1 pg (26.0-34.0); MEAN CORPUSCULAR VOLUME 89.6 fL (80-100); MEAN PLATELET VOLUME 10.6 fL (9.2-13.0); MONOCYTES 13.3 %; MONOCYTES ABSOLUTE 1.08 10/3/uL (0.21-1.20); NEUTROPHILS 51.6 %; NEUTROPHILS ABSOLUTE 4.18 10/3/uL (2.02-8.40); NUCLEATED RED BLOOD CELLS 0.2 /100WBC (0-0); PLATELET COUNT 459 10/3/uL (150-400); RED CELL COUNT 2.99 10/6/uL (4.0-5.6); WHITE BLOOD CELLS 8.1 10/3/uL (4.5-10.5)
[2016-12-29 10:53] LABS: BUN (BLOOD UREA NITROGEN) 22 MG/DL (6-23); CALCIUM, SERUM 7.8 MG/DL (8.5-10.4); CHLORIDE, SERUM 105 MMOL/L (96-112); CO2 (CARBON DIOXIDE) 20 MMOL/L (24-34); CREATININE 0.39 MG/DL (0.55-1.02); GFR AFRICAN AMERICAN 122 ML/MIN (>=60); GFR NON AFRICAN AMERICAN 106 ML/MIN (>=60); GLUCOSE, SERUM 128 MG/DL (60-99); POTASSIUM, SERUM 3.9 MMOL/L (3.5-5.3); SODIUM, SERUM 132 MMOL/L (135-148)
[2016-12-30 06:49] LABS: BASOPHILS 0.8 %; BASOPHILS ABSOLUTE 0.06 10/3/uL (0.0-0.16); EOSINOPHILS ABSOLUTE 0.07 10/3/uL (0.0-0.53); HEMOGLOBIN 8.8 g/dL (12.0-16.0); IMMATURE GRANULOCYTES 0.4 %; IMMATURE GRANULOCYTES ABSOLUTE 0.03 10/3/uL (0.0-0.11); LYMPHOCYTES 43.5 %; LYMPHOCYTES ABSOLUTE 3.12 10/3/uL (0.67-4.30); MEAN CORPUS HGB CONC 31.4 g/dL (32.0-36.0); MEAN CORPUSCULAR HEMOGLOB 28.1 pg (26.0-34.0); MEAN CORPUSCULAR VOLUME 89.5 fL (80-100); MONOCYTES ABSOLUTE 0.86 10/3/uL (0.21-1.20); NEUTROPHILS 42.3 %; NEUTROPHILS ABSOLUTE 3.04 10/3/uL (2.02-8.40); PLATELET COUNT 491 10/3/uL (150-400); RBC DISTRIBUTION WIDTH 19.1 % (12.0-16.0); RED CELL COUNT 3.13 10/6/uL (4.0-5.6); WHITE BLOOD CELLS 7.2 10/3/uL (4.5-10.5)
[2016-12-30 06:51] LABS: MANUAL DIFF NO %
[2016-12-30 07:01] LABS: A/G RATIO 0.3 (0.7-1.9); ALBUMIN 1.4 G/DL (3.5-5.0); BUN (BLOOD UREA NITROGEN) 22 MG/DL (6-23); CALCIUM, SERUM 7.6 MG/DL (8.5-10.4); CHLORIDE, SERUM 103 MMOL/L (96-112); CREATININE 0.39 MG/DL (0.55-1.02); GFR AFRICAN AMERICAN 122 ML/MIN (>=60); GFR NON AFRICAN AMERICAN 106 ML/MIN (>=60); GLOBULIN 4.3 G/DL (2.5-4.1); GLUCOSE, SERUM 118 MG/DL (60-99); PHOSPHORUS, SERUM 2.8 MG/DL (2.5-4.5); POTASSIUM, SERUM 3.9 MMOL/L (3.5-5.3); SGOT(AST) 27 U/L (5-40); SGPT(ALT) 17 U/L (5-65); SODIUM, SERUM 136 MMOL/L (135-148); TOTAL BILIRUBIN 1.1 MG/DL (0-1.2); TOTAL PROTEIN 5.7 G/DL (6.0-8.5)
[2016-12-30 07:02] LABS: ALKALINE PHOSPHATASE 152 U/L (45-117); CO2 (CARBON DIOXIDE) 25 MMOL/L (24-34)
[2016-12-31 06:35] LABS: BASOPHILS 0.6 %; BASOPHILS ABSOLUTE 0.04 10/3/uL (0.0-0.16); EOSINOPHILS 1.3 %; EOSINOPHILS ABSOLUTE 0.09 10/3/uL (0.0-0.53); HEMATOCRIT 27.2 % (36.0-48.0); HEMOGLOBIN 8.7 g/dL (12.0-16.0); IMMATURE GRANULOCYTES 0.3 %; IMMATURE GRANULOCYTES ABSOLUTE 0.02 10/3/uL (0.0-0.11); LYMPHOCYTES 40.4 %; LYMPHOCYTES ABSOLUTE 2.87 10/3/uL (0.67-4.30); MANUAL DIFF NO %; MEAN CORPUSCULAR HEMOGLOB 28.6 pg (26.0-34.0); MEAN CORPUSCULAR VOLUME 89.5 fL (80-100); MEAN PLATELET VOLUME 10.9 fL (9.2-13.0); MONOCYTES 12.5 %; MONOCYTES ABSOLUTE 0.89 10/3/uL (0.21-1.20); NEUTROPHILS 44.9 %; PLATELET COUNT 490 10/3/uL (150-400); RBC DISTRIBUTION WIDTH 19.1 % (12.0-16.0); RED CELL COUNT 3.04 10/6/uL (4.0-5.6); WHITE BLOOD CELLS 7.1 10/3/uL (4.5-10.5)
[2016-12-31 06:39] LABS: INTERNATIONAL NORMAL RATI 1.3 UNITS (-); PARTIAL THROMBO TIME 42.2 SEC (22.5-37.2); PROTIME (NOT ORD) 15.7 SEC (12.0-14.5)
[2016-12-31 06:46] LABS: A/G RATIO 0.3 (0.7-1.9); ALBUMIN 1.4 G/DL (3.5-5.0); ALKALINE PHOSPHATASE 148 U/L (45-117); BUN (BLOOD UREA NITROGEN) 21 MG/DL (6-23); CALCIUM, SERUM 7.7 MG/DL (8.5-10.4); CHLORIDE, SERUM 106 MMOL/L (96-112); CO2 (CARBON DIOXIDE) 22 MMOL/L (24-34); GFR AFRICAN AMERICAN 121 ML/MIN (>=60); GFR NON AFRICAN AMERICAN 105 ML/MIN (>=60); GLOBULIN 4.3 G/DL (2.5-4.1); GLUCOSE, SERUM 96 MG/DL (60-99); PHOSPHORUS, SERUM 2.8 MG/DL (2.5-4.5); POTASSIUM, SERUM 3.9 MMOL/L (3.5-5.3); SGOT(AST) 30 U/L (5-40); SGPT(ALT) 20 U/L (5-65); SODIUM, SERUM 136 MMOL/L (135-148); TOTAL BILIRUBIN 0.8 MG/DL (0-1.2); TOTAL PROTEIN 5.7 G/DL (6.0-8.5)
[2017-01-01 07:06] LABS: BASOPHILS ABSOLUTE 0.09 10/3/uL (0.0-0.16); EOSINOPHILS 0.8 %; EOSINOPHILS ABSOLUTE 0.07 10/3/uL (0.0-0.53); HEMATOCRIT 26.3 % (36.0-48.0); HEMOGLOBIN 8.3 g/dL (12.0-16.0); IMMATURE GRANULOCYTES 0.3 %; IMMATURE GRANULOCYTES ABSOLUTE 0.03 10/3/uL (0.0-0.11); LYMPHOCYTES 39.6 %; LYMPHOCYTES ABSOLUTE 3.54 10/3/uL (0.67-4.30); MEAN CORPUS HGB CONC 31.6 g/dL (32.0-36.0); MEAN CORPUSCULAR HEMOGLOB 28.6 pg (26.0-34.0); MEAN CORPUSCULAR VOLUME 90.7 fL (80-100); MEAN PLATELET VOLUME 10.6 fL (9.2-13.0); MONOCYTES 11.5 %; MONOCYTES ABSOLUTE 1.03 10/3/uL (0.21-1.20); NEUTROPHILS 46.8 %; NEUTROPHILS ABSOLUTE 4.19 10/3/uL (2.02-8.40); PLATELET COUNT 427 10/3/uL (150-400); RBC DISTRIBUTION WIDTH 19.2 % (12.0-16.0)
[2017-01-01 07:08] LABS: MANUAL DIFF NO %
[2017-01-01 07:22] LABS: A/G RATIO 0.3 (0.7-1.9); ALBUMIN 1.3 G/DL (3.5-5.0); ALKALINE PHOSPHATASE 144 U/L (45-117); BUN (BLOOD UREA NITROGEN) 23 MG/DL (6-23); CALCIUM, SERUM 7.1 MG/DL (8.5-10.4); CHLORIDE, SERUM 105 MMOL/L (96-112); CO2 (CARBON DIOXIDE) 23 MMOL/L (24-34); GFR AFRICAN AMERICAN 121 ML/MIN (>=60); GFR NON AFRICAN AMERICAN 105 ML/MIN (>=60); GLOBULIN 3.9 G/DL (2.5-4.1); GLUCOSE, SERUM 81 MG/DL (60-99); PHOSPHORUS, SERUM 2.9 MG/DL (2.5-4.5); POTASSIUM, SERUM 4.2 MMOL/L (3.5-5.3); SGOT(AST) 32 U/L (5-40); SGPT(ALT) 19 U/L (5-65); SODIUM, SERUM 136 MMOL/L (135-148); TOTAL BILIRUBIN 0.7 MG/DL (0-1.2); TOTAL PROTEIN 5.2 G/DL (6.0-8.5)
[2017-01-02 07:06] LABS: BASOPHILS 0.1 %; BASOPHILS ABSOLUTE 0.01 10/3/uL (0.0-0.16); EOSINOPHILS 0.4 %; EOSINOPHILS ABSOLUTE 0.03 10/3/uL (0.0-0.53); HEMATOCRIT 25.1 % (36.0-48.0); HEMOGLOBIN 7.8 g/dL (12.0-16.0); IMMATURE GRANULOCYTES 0.4 %; IMMATURE GRANULOCYTES ABSOLUTE 0.03 10/3/uL (0.0-0.11); LYMPHOCYTES 35.7 %; LYMPHOCYTES ABSOLUTE 2.81 10/3/uL (0.67-4.30); MEAN CORPUS HGB CONC 31.1 g/dL (32.0-36.0); MEAN CORPUSCULAR HEMOGLOB 28.3 pg (26.0-34.0); MEAN CORPUSCULAR VOLUME 90.9 fL (80-100); MEAN PLATELET VOLUME 10.8 fL (9.2-13.0); MONOCYTES 16.6 %; MONOCYTES ABSOLUTE 1.31 10/3/uL (0.21-1.20); NEUTROPHILS 46.8 %; NEUTROPHILS ABSOLUTE 3.69 10/3/uL (2.02-8.40); PLATELET COUNT 412 10/3/uL (150-400); RBC DISTRIBUTION WIDTH 19.3 % (12.0-16.0); RED CELL COUNT 2.76 10/6/uL (4.0-5.6); WHITE BLOOD CELLS 7.9 10/3/uL (4.5-10.5)
[2017-01-02 07:07] LABS: MANUAL DIFF NO %
[2017-01-02 07:24] LABS: A/G RATIO 0.3 (0.7-1.9); ALBUMIN 1.4 G/DL (3.5-5.0); ALKALINE PHOSPHATASE 134 U/L (45-117); BUN (BLOOD UREA NITROGEN) 23 MG/DL (6-23); CHLORIDE, SERUM 106 MMOL/L (96-112); CO2 (CARBON DIOXIDE) 23 MMOL/L (24-34); CREATININE 0.39 MG/DL (0.55-1.02); GFR AFRICAN AMERICAN 122 ML/MIN (>=60); GFR NON AFRICAN AMERICAN 106 ML/MIN (>=60); GLOBULIN 4.1 G/DL (2.5-4.1); GLUCOSE, SERUM 84 MG/DL (60-99); PHOSPHORUS, SERUM 2.7 MG/DL (2.5-4.5); POTASSIUM, SERUM 4.2 MMOL/L (3.5-5.3); SGOT(AST) 27 U/L (5-40); SGPT(ALT) 19 U/L (5-65); SODIUM, SERUM 135 MMOL/L (135-148); TOTAL BILIRUBIN 0.7 MG/DL (0-1.2); TOTAL PROTEIN 5.5 G/DL (6.0-8.5)
[2017-01-03 07:08] LABS: BASOPHILS 0.5 %; BASOPHILS ABSOLUTE 0.04 10/3/uL (0.0-0.16); EOSINOPHILS 1.5 %; EOSINOPHILS ABSOLUTE 0.11 10/3/uL (0.0-0.53); HEMATOCRIT 27.4 % (36.0-48.0); HEMOGLOBIN 8.6 g/dL (12.0-16.0); IMMATURE GRANULOCYTES 0.4 %; IMMATURE GRANULOCYTES ABSOLUTE 0.03 10/3/uL (0.0-0.11); LYMPHOCYTES 40.9 %; MANUAL DIFF NO %; MEAN CORPUS HGB CONC 31.4 g/dL (32.0-36.0); MEAN CORPUSCULAR HEMOGLOB 28.5 pg (26.0-34.0); MEAN CORPUSCULAR VOLUME 90.7 fL (80-100); MONOCYTES 15.8 %; MONOCYTES ABSOLUTE 1.16 10/3/uL (0.21-1.20); NEUTROPHILS 40.9 %; NEUTROPHILS ABSOLUTE 2.99 10/3/uL (2.02-8.40); PLATELET COUNT 419 10/3/uL (150-400); RED CELL COUNT 3.02 10/6/uL (4.0-5.6); WHITE BLOOD CELLS 7.3 10/3/uL (4.5-10.5)
[2017-01-03 07:14] LABS: BUN (BLOOD UREA NITROGEN) 23 MG/DL (6-23); CALCIUM, SERUM 7.8 MG/DL (8.5-10.4); CHLORIDE, SERUM 102 MMOL/L (96-112); CO2 (CARBON DIOXIDE) 23 MMOL/L (24-34); CREATININE 0.36 MG/DL (0.55-1.02); GFR AFRICAN AMERICAN 126 ML/MIN (>=60); GFR NON AFRICAN AMERICAN 108 ML/MIN (>=60); GLUCOSE, SERUM 89 MG/DL (60-99); POTASSIUM, SERUM 4.4 MMOL/L (3.5-5.3); SODIUM, SERUM 133 MMOL/L (135-148)
[2017-01-04 07:22] LABS: BUN (BLOOD UREA NITROGEN) 23 MG/DL (6-23); CALCIUM, SERUM 7.4 MG/DL (8.5-10.4); CHLORIDE, SERUM 101 MMOL/L (96-112); CO2 (CARBON DIOXIDE) 24 MMOL/L (24-34); CREATININE 0.35 MG/DL (0.55-1.02); GFR AFRICAN AMERICAN 127 ML/MIN (>=60); GFR NON AFRICAN AMERICAN 109 ML/MIN (>=60); GLUCOSE, SERUM 102 MG/DL (60-99); PHOSPHORUS, SERUM 2.7 MG/DL (2.5-4.5); POTASSIUM, SERUM 4.1 MMOL/L (3.5-5.3); SODIUM, SERUM 133 MMOL/L (135-148)
[2017-01-05 05:52] LABS: BUN (BLOOD UREA NITROGEN) 24 MG/DL (6-23); CALCIUM, SERUM 7.7 MG/DL (8.5-10.4); CHLORIDE, SERUM 101 MMOL/L (96-112); CO2 (CARBON DIOXIDE) 25 MMOL/L (24-34); CREATININE 0.34 MG/DL (0.55-1.02); GFR AFRICAN AMERICAN 128 ML/MIN (>=60); GFR NON AFRICAN AMERICAN 111 ML/MIN (>=60); GLUCOSE, SERUM 99 MG/DL (60-99); SODIUM, SERUM 129 MMOL/L (135-148)
[2017-01-06 07:15] LABS: BASOPHILS 0.4 %; BASOPHILS ABSOLUTE 0.04 10/3/uL (0.0-0.16); EOSINOPHILS 1.8 %; EOSINOPHILS ABSOLUTE 0.16 10/3/uL (0.0-0.53); HEMATOCRIT 25.5 % (36.0-48.0); HEMOGLOBIN 8.2 g/dL (12.0-16.0); IMMATURE GRANULOCYTES 0.6 %; IMMATURE GRANULOCYTES ABSOLUTE 0.05 10/3/uL (0.0-0.11); LYMPHOCYTES 31.5 %; LYMPHOCYTES ABSOLUTE 2.85 10/3/uL (0.67-4.30); MEAN CORPUS HGB CONC 32.2 g/dL (32.0-36.0); MEAN CORPUSCULAR HEMOGLOB 28.6 pg (26.0-34.0); MEAN CORPUSCULAR VOLUME 88.9 fL (80-100); MEAN PLATELET VOLUME 10.4 fL (9.2-13.0); MONOCYTES 16.4 %; MONOCYTES ABSOLUTE 1.49 10/3/uL (0.21-1.20); NEUTROPHILS 49.3 %; NEUTROPHILS ABSOLUTE 4.47 10/3/uL (2.02-8.40); PLATELET COUNT 404 10/3/uL (150-400); RBC DISTRIBUTION WIDTH 18.6 % (12.0-16.0); RED CELL COUNT 2.87 10/6/uL (4.0-5.6); WHITE BLOOD CELLS 9.1 10/3/uL (4.5-10.5)
[2017-01-06 07:17] LABS: INTERNATIONAL NORMAL RATI 1.2 UNITS (-); PARTIAL THROMBO TIME 45.5 SEC (22.5-37.2); PROTIME (NOT ORD) 15.4 SEC (12.0-14.5)
[2017-01-06 07:18] LABS: MANUAL DIFF NO %
[2017-01-06 07:29] LABS: A/G RATIO 0.3 (0.7-1.9); ALBUMIN 1.4 G/DL (3.5-5.0); ALKALINE PHOSPHATASE 134 U/L (45-117); BUN (BLOOD UREA NITROGEN) 22 MG/DL (6-23); CALCIUM, SERUM 7.4 MG/DL (8.5-10.4); CHLORIDE, SERUM 102 MMOL/L (96-112); CO2 (CARBON DIOXIDE) 24 MMOL/L (24-34); CREATININE 0.34 MG/DL (0.55-1.02); GFR AFRICAN AMERICAN 128 ML/MIN (>=60); GFR NON AFRICAN AMERICAN 111 ML/MIN (>=60); GLOBULIN 4.1 G/DL (2.5-4.1); GLUCOSE, SERUM 100 MG/DL (60-99); POTASSIUM, SERUM 4.1 MMOL/L (3.5-5.3); PREALBUMIN 7.7 MG/DL (17.0-43.0); SGOT(AST) 25 U/L (5-40); SGPT(ALT) 16 U/L (5-65); SODIUM, SERUM 128 MMOL/L (135-148); TOTAL BILIRUBIN 0.6 MG/DL (0-1.2); TOTAL PROTEIN 5.5 G/DL (6.0-8.5); TRIGLYCERIDE 87 MG/DL (< 150)
[2017-01-07 06:24] LABS: BASOPHILS 0.6 %; BASOPHILS ABSOLUTE 0.05 10/3/uL (0.0-0.16); EOSINOPHILS ABSOLUTE 0.16 10/3/uL (0.0-0.53); HEMATOCRIT 26.4 % (36.0-48.0); HEMOGLOBIN 8.7 g/dL (12.0-16.0); IMMATURE GRANULOCYTES 0.6 %; IMMATURE GRANULOCYTES ABSOLUTE 0.05 10/3/uL (0.0-0.11); LYMPHOCYTES 38.4 %; MANUAL DIFF NO %; MEAN CORPUSCULAR HEMOGLOB 29.3 pg (26.0-34.0); MEAN CORPUSCULAR VOLUME 88.9 fL (80-100); MEAN PLATELET VOLUME 10.8 fL (9.2-13.0); MONOCYTES 12.3 %; MONOCYTES ABSOLUTE 0.99 10/3/uL (0.21-1.20); NEUTROPHILS 46.1 %; NEUTROPHILS ABSOLUTE 3.72 10/3/uL (2.02-8.40); PLATELET COUNT 424 10/3/uL (150-400); RBC DISTRIBUTION WIDTH 18.3 % (12.0-16.0); RED CELL COUNT 2.97 10/6/uL (4.0-5.6); WHITE BLOOD CELLS 8.1 10/3/uL (4.5-10.5)
[2017-01-07 06:36] LABS: BUN (BLOOD UREA NITROGEN) 24 MG/DL (6-23); CALCIUM, SERUM 7.9 MG/DL (8.5-10.4); CHLORIDE, SERUM 100 MMOL/L (96-112); CO2 (CARBON DIOXIDE) 24 MMOL/L (24-34); CREATININE 0.39 MG/DL (0.55-1.02); GFR AFRICAN AMERICAN 122 ML/MIN (>=60); GFR NON AFRICAN AMERICAN 106 ML/MIN (>=60); GLUCOSE, SERUM 105 MG/DL (60-99); SODIUM, SERUM 130 MMOL/L (135-148)
[2017-01-08 06:02] LABS: BUN (BLOOD UREA NITROGEN) 25 MG/DL (6-23); CALCIUM, SERUM 7.5 MG/DL (8.5-10.4); CHLORIDE, SERUM 100 MMOL/L (96-112); CO2 (CARBON DIOXIDE) 25 MMOL/L (24-34); CREATININE 0.42 MG/DL (0.55-1.02); GFR AFRICAN AMERICAN 120 ML/MIN (>=60); GFR NON AFRICAN AMERICAN 103 ML/MIN (>=60); GLUCOSE, SERUM 108 MG/DL (60-99); POTASSIUM, SERUM 3.9 MMOL/L (3.5-5.3); SODIUM, SERUM 129 MMOL/L (135-148)
[2017-01-09 07:23] LABS: CALCIUM, SERUM 7.8 MG/DL (8.5-10.4); CHLORIDE, SERUM 101 MMOL/L (96-112); CO2 (CARBON DIOXIDE) 25 MMOL/L (24-34); CREATININE 0.37 MG/DL (0.55-1.02); GFR AFRICAN AMERICAN 125 ML/MIN (>=60); GFR NON AFRICAN AMERICAN 108 ML/MIN (>=60); PHOSPHORUS, SERUM 3.4 MG/DL (2.5-4.5); SODIUM, SERUM 130 MMOL/L (135-148)
[2017-01-09 07:26] LABS: BUN (BLOOD UREA NITROGEN) 20 MG/DL (6-23); GLUCOSE, SERUM 86 MG/DL (60-99)
[2017-01-10 06:54] LABS: HEMATOCRIT 26.7 % (36.0-48.0); HEMOGLOBIN 8.5 g/dL (12.0-16.0); MEAN CORPUS HGB CONC 31.8 g/dL (32.0-36.0); MEAN CORPUSCULAR HEMOGLOB 28.1 pg (26.0-34.0); MEAN CORPUSCULAR VOLUME 88.4 fL (80-100); MEAN PLATELET VOLUME 10.6 fL (9.2-13.0); PLATELET COUNT 492 10/3/uL (150-400); RBC DISTRIBUTION WIDTH 18.2 % (12.0-16.0); RED CELL COUNT 3.02 10/6/uL (4.0-5.6); WHITE BLOOD CELLS 8.1 10/3/uL (4.5-10.5)
[2017-01-10 06:55] LABS: MANUAL DIFF YES %
[2017-01-10 07:09] LABS: A/G RATIO 0.4 (0.7-1.9); ALBUMIN 1.6 G/DL (3.5-5.0); ALKALINE PHOSPHATASE 170 U/L (45-117); BUN (BLOOD UREA NITROGEN) 19 MG/DL (6-23); CALCIUM, SERUM 7.9 MG/DL (8.5-10.4); CHLORIDE, SERUM 100 MMOL/L (96-112); CO2 (CARBON DIOXIDE) 26 MMOL/L (24-34); CREATININE 0.39 MG/DL (0.55-1.02); GFR AFRICAN AMERICAN 122 ML/MIN (>=60); GFR NON AFRICAN AMERICAN 106 ML/MIN (>=60); GLOBULIN 4.4 G/DL (2.5-4.1); GLUCOSE, SERUM 101 MG/DL (60-99); PHOSPHORUS, SERUM 3.2 MG/DL (2.5-4.5); SGOT(AST) 30 U/L (5-40); SGPT(ALT) 22 U/L (5-65); SODIUM, SERUM 133 MMOL/L (135-148); TOTAL BILIRUBIN 0.6 MG/DL (0-1.2)
[2017-01-10 07:24] LABS: BAND NEUTROPHILS 6 %; BASOPHILS 1 %; BASOPHILS ABSOLUTE (CALC) 0.08 10/3/uL (0.0-0.16); EOSINOPHILS 2 %; EOSINOPHILS ABSOLUTE (CALC) 0.16 10/3/uL (0.0-0.53); LYMPHOCYTES 27 %; LYMPHOCYTES ABSOLUTE (CALC) 2.19 10/3/uL (0.67-4.30); MONOCYTES 10 %; MONOCYTES ABSOLUTE (CALC) 0.81 10/3/uL (0.21-1.20); NEUTROPHILS ABSOLUTE (CALC) 4.86 10/3/uL (2.02-8.40); SEGMENTED NEUTROPHIL (0) 54 %; TOTAL NUCLEATED CELLS 100
[2017-01-10 07:25] LABS: ANISOCYTOSIS 1+ (5-10/OIF) (0-5/OIF); PLATELET ESTIMATE ADQ (ADEQUATE)
[2017-01-10 15:59] LABS: BUN (BLOOD UREA NITROGEN) 21 MG/DL (6-23); CALCIUM, SERUM 7.5 MG/DL (8.5-10.4); CHLORIDE, SERUM 100 MMOL/L (96-112); CO2 (CARBON DIOXIDE) 26 MMOL/L (24-34); CREATININE 0.44 MG/DL (0.55-1.02); GFR AFRICAN AMERICAN 118 ML/MIN (>=60); GFR NON AFRICAN AMERICAN 102 ML/MIN (>=60); GLUCOSE, SERUM 127 MG/DL (60-99); POTASSIUM, SERUM 4.3 MMOL/L (3.5-5.3); SODIUM, SERUM 131 MMOL/L (135-148)
[2017-01-11 07:47] LABS: BASOPHILS 1.1 %; EOSINOPHILS 2.3 %; HEMOGLOBIN 8.4 g/dL (12.0-16.0); IMMATURE GRANULOCYTES 1.1 %; LYMPHOCYTES 35.2 %; LYMPHOCYTES ABSOLUTE 3.09 10/3/uL (0.67-4.30); MEAN CORPUS HGB CONC 32.3 g/dL (32.0-36.0); MEAN CORPUSCULAR HEMOGLOB 28.3 pg (26.0-34.0); MEAN CORPUSCULAR VOLUME 87.5 fL (80-100); MEAN PLATELET VOLUME 10.6 fL (9.2-13.0); MONOCYTES 15.7 %; MONOCYTES ABSOLUTE 1.38 10/3/uL (0.21-1.20); NEUTROPHILS 44.6 %; NEUTROPHILS ABSOLUTE 3.91 10/3/uL (2.02-8.40); PLATELET COUNT 508 10/3/uL (150-400); RBC DISTRIBUTION WIDTH 18.1 % (12.0-16.0); RED CELL COUNT 2.97 10/6/uL (4.0-5.6); WHITE BLOOD CELLS 8.8 10/3/uL (4.5-10.5)
[2017-01-11 07:49] LABS: MANUAL DIFF NO %
[2017-01-11 08:03] LABS: BUN (BLOOD UREA NITROGEN) 21 MG/DL (6-23); CALCIUM, SERUM 7.7 MG/DL (8.5-10.4); CHLORIDE, SERUM 101 MMOL/L (96-112); CO2 (CARBON DIOXIDE) 24 MMOL/L (24-34); CREATININE 0.48 MG/DL (0.55-1.02); GFR AFRICAN AMERICAN 114 ML/MIN (>=60); GFR NON AFRICAN AMERICAN 99 ML/MIN (>=60); GLUCOSE, SERUM 133 MG/DL (60-99); PHOSPHORUS, SERUM 3.3 MG/DL (2.5-4.5); POTASSIUM, SERUM 4.2 MMOL/L (3.5-5.3); SODIUM, SERUM 131 MMOL/L (135-148); TRIGLYCERIDE 84 MG/DL (< 150)
[2017-01-12 07:33] LABS: BUN (BLOOD UREA NITROGEN) 21 MG/DL (6-23); CHLORIDE, SERUM 103 MMOL/L (96-112); CO2 (CARBON DIOXIDE) 23 MMOL/L (24-34); CREATININE 0.38 MG/DL (0.55-1.02); GFR AFRICAN AMERICAN 124 ML/MIN (>=60); GFR NON AFRICAN AMERICAN 107 ML/MIN (>=60); GLUCOSE, SERUM 110 MG/DL (60-99); PHOSPHORUS, SERUM 3.2 MG/DL (2.5-4.5); POTASSIUM, SERUM 4.3 MMOL/L (3.5-5.3); SODIUM, SERUM 134 MMOL/L (135-148)
[2017-01-13 05:37] LABS: BUN (BLOOD UREA NITROGEN) 22 MG/DL (6-23); CALCIUM, SERUM 8.1 MG/DL (8.5-10.4); CHLORIDE, SERUM 101 MMOL/L (96-112); CO2 (CARBON DIOXIDE) 24 MMOL/L (24-34); GFR AFRICAN AMERICAN 113 ML/MIN (>=60); GFR NON AFRICAN AMERICAN 97 ML/MIN (>=60); GLUCOSE, SERUM 105 MG/DL (60-99); POTASSIUM, SERUM 4.2 MMOL/L (3.5-5.3); SODIUM, SERUM 132 MMOL/L (135-148)
[2017-01-14 05:47] LABS: HEMATOCRIT 26.2 % (36.0-48.0); HEMOGLOBIN 8.3 g/dL (12.0-16.0); MEAN CORPUS HGB CONC 31.7 g/dL (32.0-36.0); MEAN CORPUSCULAR HEMOGLOB 28.1 pg (26.0-34.0); MEAN CORPUSCULAR VOLUME 88.8 fL (80-100); PLATELET COUNT 524 10/3/uL (150-400); RBC DISTRIBUTION WIDTH 17.9 % (12.0-16.0); RED CELL COUNT 2.95 10/6/uL (4.0-5.6); WHITE BLOOD CELLS 10.9 10/3/uL (4.5-10.5)
[2017-01-14 05:48] LABS: MANUAL DIFF YES %
[2017-01-14 06:03] LABS: A/G RATIO 0.4 (0.7-1.9); ALBUMIN 1.7 G/DL (3.5-5.0); BUN (BLOOD UREA NITROGEN) 20 MG/DL (6-23); CHLORIDE, SERUM 100 MMOL/L (96-112); CO2 (CARBON DIOXIDE) 26 MMOL/L (24-34); GFR AFRICAN AMERICAN 113 ML/MIN (>=60); GFR NON AFRICAN AMERICAN 97 ML/MIN (>=60); GLOBULIN 4.4 G/DL (2.5-4.1); GLUCOSE, SERUM 108 MG/DL (60-99); SGOT(AST) 34 U/L (5-40); SGPT(ALT) 32 U/L (5-65); SODIUM, SERUM 133 MMOL/L (135-148); TOTAL BILIRUBIN 0.5 MG/DL (0-1.2); TOTAL PROTEIN 6.1 G/DL (6.0-8.5)
[2017-01-14 06:05] LABS: ALKALINE PHOSPHATASE 182 U/L (45-117)
[2017-01-14 06:18] LABS: BAND NEUTROPHILS 12 %; BASOPHILS 2 %; BASOPHILS ABSOLUTE (CALC) 0.22 10/3/uL (0.0-0.16); EOSINOPHILS 1 %; EOSINOPHILS ABSOLUTE (CALC) 0.11 10/3/uL (0.0-0.53); IMMATURE GRANS ABSOLUTE (CALC) 0.11 10/3/uL (0.0-0.11); LYMPHOCYTES 19 %; LYMPHOCYTES ABSOLUTE (CALC) 2.07 10/3/uL (0.67-4.30); METAMYELOCYTES 1 %; MONOCYTES 5 %; MONOCYTES ABSOLUTE (CALC) 0.55 10/3/uL (0.21-1.20); NEUTROPHILS ABSOLUTE (CALC) 7.85 10/3/uL (2.02-8.40); SEGMENTED NEUTROPHIL (0) 60 %; TOTAL NUCLEATED CELLS 100
[2017-01-14 06:19] LABS: ANISOCYTOSIS 1+ (5-10/OIF) (0-5/OIF); PLATELET ESTIMATE SLT INC (ADEQUATE); POLYCHROMASIA 1+ (2-5/OIF) (0-1/OIF)
[2017-01-15 06:41] LABS: BASOPHILS 0.7 %; BASOPHILS ABSOLUTE 0.08 10/3/uL (0.0-0.16); EOSINOPHILS 1.3 %; EOSINOPHILS ABSOLUTE 0.15 10/3/uL (0.0-0.53); HEMATOCRIT 25.2 % (36.0-48.0); HEMOGLOBIN 8.1 g/dL (12.0-16.0); IMMATURE GRANULOCYTES 0.7 %; IMMATURE GRANULOCYTES ABSOLUTE 0.08 10/3/uL (0.0-0.11); LYMPHOCYTES 37.2 %; LYMPHOCYTES ABSOLUTE 4.28 10/3/uL (0.67-4.30); MEAN CORPUS HGB CONC 32.1 g/dL (32.0-36.0); MEAN CORPUSCULAR HEMOGLOB 28.3 pg (26.0-34.0); MEAN CORPUSCULAR VOLUME 88.1 fL (80-100); MONOCYTES ABSOLUTE 1.49 10/3/uL (0.21-1.20); NEUTROPHILS 47.1 %; NEUTROPHILS ABSOLUTE 5.42 10/3/uL (2.02-8.40); PLATELET COUNT 533 10/3/uL (150-400); RBC DISTRIBUTION WIDTH 17.8 % (12.0-16.0); RED CELL COUNT 2.86 10/6/uL (4.0-5.6); WHITE BLOOD CELLS 11.5 10/3/uL (4.5-10.5)
[2017-01-15 06:42] LABS: MANUAL DIFF NO %
[2017-01-15 06:52] LABS: BUN (BLOOD UREA NITROGEN) 17 MG/DL (6-23); CALCIUM, SERUM 8.1 MG/DL (8.5-10.4); CHLORIDE, SERUM 100 MMOL/L (96-112); CO2 (CARBON DIOXIDE) 24 MMOL/L (24-34); CREATININE 0.39 MG/DL (0.55-1.02); GFR AFRICAN AMERICAN 122 ML/MIN (>=60); GFR NON AFRICAN AMERICAN 106 ML/MIN (>=60); GLUCOSE, SERUM 98 MG/DL (60-99); POTASSIUM, SERUM 3.9 MMOL/L (3.5-5.3); SODIUM, SERUM 133 MMOL/L (135-148)
[2017-01-16 06:27] LABS: BUN (BLOOD UREA NITROGEN) 22 MG/DL (6-23); CALCIUM, SERUM 8.1 MG/DL (8.5-10.4); CHLORIDE, SERUM 99 MMOL/L (96-112); CO2 (CARBON DIOXIDE) 24 MMOL/L (24-34); CREATININE 0.55 MG/DL (0.55-1.02); GFR AFRICAN AMERICAN 109 ML/MIN (>=60); GFR NON AFRICAN AMERICAN 94 ML/MIN (>=60); GLUCOSE, SERUM 146 MG/DL (60-99); POTASSIUM, SERUM 3.6 MMOL/L (3.5-5.3); SODIUM, SERUM 132 MMOL/L (135-148)
[2017-01-17 11:40] LABS: BASOPHILS 0.3 %; BASOPHILS ABSOLUTE 0.05 10/3/uL (0.0-0.16); EOSINOPHILS 0.5 %; EOSINOPHILS ABSOLUTE 0.09 10/3/uL (0.0-0.53); HEMATOCRIT 26.6 % (36.0-48.0); HEMOGLOBIN 8.7 g/dL (12.0-16.0); IMMATURE GRANULOCYTES 1.1 %; IMMATURE GRANULOCYTES ABSOLUTE 0.19 10/3/uL (0.0-0.11); LYMPHOCYTES 23.9 %; LYMPHOCYTES ABSOLUTE 4.21 10/3/uL (0.67-4.30); MANUAL DIFF NO %; MEAN CORPUS HGB CONC 32.7 g/dL (32.0-36.0); MEAN CORPUSCULAR HEMOGLOB 28.5 pg (26.0-34.0); MEAN CORPUSCULAR VOLUME 87.2 fL (80-100); MEAN PLATELET VOLUME 9.6 fL (9.2-13.0); MONOCYTES 11.5 %; MONOCYTES ABSOLUTE 2.03 10/3/uL (0.21-1.20); NEUTROPHILS 62.7 %; NEUTROPHILS ABSOLUTE 11.05 10/3/uL (2.02-8.40); PLATELET COUNT 537 10/3/uL (150-400); RBC DISTRIBUTION WIDTH 17.5 % (12.0-16.0); RED CELL COUNT 3.05 10/6/uL (4.0-5.6); WHITE BLOOD CELLS 17.6 10/3/uL (4.5-10.5)
[2017-01-17 11:53] LABS: A/G RATIO 0.4 (0.7-1.9); ALBUMIN 1.6 G/DL (3.5-5.0); CALCIUM, SERUM 7.8 MG/DL (8.5-10.4); CHLORIDE, SERUM 101 MMOL/L (96-112); CO2 (CARBON DIOXIDE) 25 MMOL/L (24-34); CREATININE 0.43 MG/DL (0.55-1.02); GFR AFRICAN AMERICAN 119 ML/MIN (>=60); GFR NON AFRICAN AMERICAN 102 ML/MIN (>=60); GLOBULIN 4.5 G/DL (2.5-4.1); POTASSIUM, SERUM 4.2 MMOL/L (3.5-5.3); SGOT(AST) 23 U/L (5-40); SGPT(ALT) 24 U/L (5-65); SODIUM, SERUM 134 MMOL/L (135-148); TOTAL BILIRUBIN 0.6 MG/DL (0-1.2); TOTAL PROTEIN 6.1 G/DL (6.0-8.5)
[2017-01-17 11:54] LABS: ALKALINE PHOSPHATASE 149 U/L (45-117); BUN (BLOOD UREA NITROGEN) 12 MG/DL (6-23); GLUCOSE, SERUM 93 MG/DL (60-99)
[2017-01-18 07:10] LABS: BASOPHILS 0.3 %; BASOPHILS ABSOLUTE 0.03 10/3/uL (0.0-0.16); EOSINOPHILS 0.7 %; EOSINOPHILS ABSOLUTE 0.08 10/3/uL (0.0-0.53); HEMATOCRIT 26.3 % (36.0-48.0); HEMOGLOBIN 8.4 g/dL (12.0-16.0); IMMATURE GRANULOCYTES 0.9 %; IMMATURE GRANULOCYTES ABSOLUTE 0.11 10/3/uL (0.0-0.11); LYMPHOCYTES 33.5 %; LYMPHOCYTES ABSOLUTE 3.93 10/3/uL (0.67-4.30); MEAN CORPUS HGB CONC 31.9 g/dL (32.0-36.0); MEAN CORPUSCULAR HEMOGLOB 27.7 pg (26.0-34.0); MEAN CORPUSCULAR VOLUME 86.8 fL (80-100); MEAN PLATELET VOLUME 9.7 fL (9.2-13.0); MONOCYTES 12.3 %; MONOCYTES ABSOLUTE 1.44 10/3/uL (0.21-1.20); NEUTROPHILS 52.3 %; NEUTROPHILS ABSOLUTE 6.15 10/3/uL (2.02-8.40); PLATELET COUNT 544 10/3/uL (150-400); RBC DISTRIBUTION WIDTH 17.3 % (12.0-16.0); RED CELL COUNT 3.03 10/6/uL (4.0-5.6); WHITE BLOOD CELLS 11.7 10/3/uL (4.5-10.5)
[2017-01-18 07:12] LABS: MANUAL DIFF NO %
[2017-01-18 07:22] LABS: BUN (BLOOD UREA NITROGEN) 9 MG/DL (6-23); CALCIUM, SERUM 7.7 MG/DL (8.5-10.4); CHLORIDE, SERUM 100 MMOL/L (96-112); CO2 (CARBON DIOXIDE) 23 MMOL/L (24-34); CREATININE 0.38 MG/DL (0.55-1.02); GFR AFRICAN AMERICAN 124 ML/MIN (>=60); GFR NON AFRICAN AMERICAN 107 ML/MIN (>=60); GLUCOSE, SERUM 114 MG/DL (60-99); POTASSIUM, SERUM 3.8 MMOL/L (3.5-5.3); SODIUM, SERUM 132 MMOL/L (135-148)
[2017-01-19 06:44] LABS: BUN (BLOOD UREA NITROGEN) 8 MG/DL (6-23); CALCIUM, SERUM 7.8 MG/DL (8.5-10.4); CHLORIDE, SERUM 96 MMOL/L (96-112); CO2 (CARBON DIOXIDE) 23 MMOL/L (24-34); CREATININE 0.48 MG/DL (0.55-1.02); GFR AFRICAN AMERICAN 114 ML/MIN (>=60); GFR NON AFRICAN AMERICAN 99 ML/MIN (>=60); GLUCOSE, SERUM 126 MG/DL (60-99); SODIUM, SERUM 127 MMOL/L (135-148)
[2017-01-20 07:10] LABS: HEMATOCRIT 25.8 % (36.0-48.0); HEMOGLOBIN 8.5 g/dL (12.0-16.0); MEAN CORPUS HGB CONC 32.9 g/dL (32.0-36.0); MEAN CORPUSCULAR HEMOGLOB 27.9 pg (26.0-34.0); MEAN CORPUSCULAR VOLUME 84.6 fL (80-100); MEAN PLATELET VOLUME 10.1 fL (9.2-13.0); PLATELET COUNT 479 10/3/uL (150-400); RBC DISTRIBUTION WIDTH 16.9 % (12.0-16.0); RED CELL COUNT 3.05 10/6/uL (4.0-5.6)
[2017-01-20 07:15] LABS: MANUAL DIFF YES %; WHITE BLOOD CELLS 28.5 10/3/uL (4.5-10.5)
[2017-01-20 07:21] LABS: BUN (BLOOD UREA NITROGEN) 10 MG/DL (6-23); CALCIUM, SERUM 7.8 MG/DL (8.5-10.4); CHLORIDE, SERUM 96 MMOL/L (96-112); CO2 (CARBON DIOXIDE) 22 MMOL/L (24-34); CREATININE 0.38 MG/DL (0.55-1.02); GFR AFRICAN AMERICAN 124 ML/MIN (>=60); GFR NON AFRICAN AMERICAN 107 ML/MIN (>=60); GLUCOSE, SERUM 122 MG/DL (60-99); POTASSIUM, SERUM 4.1 MMOL/L (3.5-5.3); SODIUM, SERUM 127 MMOL/L (135-148)
[2017-01-20 07:48] LABS: BAND NEUTROPHILS 17 %; LYMPHOCYTES 6 %; LYMPHOCYTES ABSOLUTE (CALC) 1.71 10/3/uL (0.67-4.30); METAMYELOCYTES 7 %; SEGMENTED NEUTROPHIL (0) 70 %; TOTAL NUCLEATED CELLS 100
[2017-01-20 07:49] LABS: ANISOCYTOSIS 1+ (5-10/OIF) (0-5/OIF); HYPOCHROMIA 1+ (3-10/OIF) (0-2/OIF); PLATELET ESTIMATE SLT INC (ADEQUATE)
[2017-01-20 14:58] LABS: INTERNATIONAL NORMAL RATI 1.3 UNITS (-); PARTIAL THROMBO TIME 44.7 SEC (22.5-37.2); PROTIME (NOT ORD) 16.2 SEC (12.0-14.5)
[2017-01-20 17:49] LABS: GLUCOSE BODY FL (NOT ORD) 129 MG/DL; LDH BODY FLUID (NOT ORD) 141 U/L; PROTEIN BODY FLUID 2.8 G/DL
[2017-01-20 19:48] LABS: BD FL LYMPH (NOT ORD) 50 %; BD FL SOURCE (NOT ORD) PLUERAL; BF BASO (NOT OF) 0 %; BF LARGE MONONUCLEAR 50 %; BODY FLUID EOS (NOT ORD) 0 %; BODY FLUID SEG (NOT ORD) 0 %
[2017-01-20 19:59] LABS: BODY FLUID RBC (NOT ORD) 17760 /MM3
[2017-01-20 20:00] LABS: BF TOTAL CELL CT (NOT ORD 4251 /MM3
[2017-01-21 06:09] LABS: A/G RATIO 0.3 (0.7-1.9); ALBUMIN 1.2 G/DL (3.5-5.0); ALKALINE PHOSPHATASE 124 U/L (45-117); BUN (BLOOD UREA NITROGEN) 12 MG/DL (6-23); CALCIUM, SERUM 7.4 MG/DL (8.5-10.4); CHLORIDE, SERUM 99 MMOL/L (96-112); CO2 (CARBON DIOXIDE) 23 MMOL/L (24-34); CREATININE 0.34 MG/DL (0.55-1.02); GFR AFRICAN AMERICAN 128 ML/MIN (>=60); GFR NON AFRICAN AMERICAN 111 ML/MIN (>=60); GLUCOSE, SERUM 125 MG/DL (60-99); POTASSIUM, SERUM 3.9 MMOL/L (3.5-5.3); SGOT(AST) 16 U/L (5-40); SGPT(ALT) 13 U/L (5-65); SODIUM, SERUM 131 MMOL/L (135-148); TOTAL BILIRUBIN 0.7 MG/DL (0-1.2); TOTAL PROTEIN 5.2 G/DL (6.0-8.5)
[2017-01-21 06:21] LABS: HEMATOCRIT 23.4 % (36.0-48.0); HEMOGLOBIN 7.7 g/dL (12.0-16.0); MEAN CORPUS HGB CONC 32.9 g/dL (32.0-36.0); MEAN CORPUSCULAR HEMOGLOB 27.9 pg (26.0-34.0); MEAN CORPUSCULAR VOLUME 84.8 fL (80-100); MEAN PLATELET VOLUME 10.1 fL (9.2-13.0); PLATELET COUNT 431 10/3/uL (150-400); RBC DISTRIBUTION WIDTH 16.8 % (12.0-16.0); RED CELL COUNT 2.76 10/6/uL (4.0-5.6); WHITE BLOOD CELLS 25.5 10/3/uL (4.5-10.5)
[2017-01-21 06:22] LABS: MANUAL DIFF YES %
[2017-01-21 06:32] LABS: BAND NEUTROPHILS 8 %; LYMPHOCYTES 4 %; LYMPHOCYTES ABSOLUTE (CALC) 1.02 10/3/uL (0.67-4.30); MONOCYTES 6 %; MONOCYTES ABSOLUTE (CALC) 1.53 10/3/uL (0.21-1.20); NEUTROPHILS ABSOLUTE (CALC) 22.95 10/3/uL (2.02-8.40); SEGMENTED NEUTROPHIL (0) 82 %; TOTAL NUCLEATED CELLS 100
[2017-01-21 06:33] LABS: PLATELET ESTIMATE SLT INC (ADEQUATE); TARGET CELLS OCC (1-2/OIF) (0-1/OIF)
[2017-01-21 07:59] LABS: PROCALCITONIN 0.62 ng/mL (<0.5)
[2017-01-21 12:10] LABS: FREE T4 0.77 NG/DL (0.76-1.46)
[2017-01-22 05:58] LABS: BASOPHILS 0.3 %; BASOPHILS ABSOLUTE 0.05 10/3/uL (0.0-0.16); EOSINOPHILS 1.3 %; EOSINOPHILS ABSOLUTE 0.19 10/3/uL (0.0-0.53); HEMATOCRIT 24.2 % (36.0-48.0); IMMATURE GRANULOCYTES 2.7 %; LYMPHOCYTES 20.6 %; LYMPHOCYTES ABSOLUTE 3.01 10/3/uL (0.67-4.30); MANUAL DIFF NO %; MEAN CORPUS HGB CONC 33.1 g/dL (32.0-36.0); MEAN CORPUSCULAR HEMOGLOB 28.5 pg (26.0-34.0); MEAN CORPUSCULAR VOLUME 86.1 fL (80-100); MONOCYTES 9.1 %; MONOCYTES ABSOLUTE 1.33 10/3/uL (0.21-1.20); NEUTROPHILS ABSOLUTE 9.64 10/3/uL (2.02-8.40); PLATELET COUNT 444 10/3/uL (150-400); RBC DISTRIBUTION WIDTH 16.9 % (12.0-16.0); RED CELL COUNT 2.81 10/6/uL (4.0-5.6); WHITE BLOOD CELLS 14.6 10/3/uL (4.5-10.5)
[2017-01-22 06:16] LABS: A/G RATIO 0.3 (0.7-1.9); ALBUMIN 1.2 G/DL (3.5-5.0); ALKALINE PHOSPHATASE 128 U/L (45-117); BUN (BLOOD UREA NITROGEN) 10 MG/DL (6-23); CALCIUM, SERUM 7.8 MG/DL (8.5-10.4); CHLORIDE, SERUM 103 MMOL/L (96-112); CO2 (CARBON DIOXIDE) 22 MMOL/L (24-34); CREATININE 0.39 MG/DL (0.55-1.02); GFR AFRICAN AMERICAN 122 ML/MIN (>=60); GFR NON AFRICAN AMERICAN 106 ML/MIN (>=60); POTASSIUM, SERUM 4.1 MMOL/L (3.5-5.3); SGOT(AST) 24 U/L (5-40); SGPT(ALT) 19 U/L (5-65); SODIUM, SERUM 133 MMOL/L (135-148); TOTAL BILIRUBIN 0.5 MG/DL (0-1.2); TOTAL PROTEIN 5.2 G/DL (6.0-8.5)
[2017-01-22 06:17] LABS: GLUCOSE, SERUM 96 MG/DL (60-99)
[2017-01-23 05:23] LABS: BASOPHILS 0.7 %; BASOPHILS ABSOLUTE 0.07 10/3/uL (0.0-0.16); EOSINOPHILS 1.2 %; EOSINOPHILS ABSOLUTE 0.13 10/3/uL (0.0-0.53); HEMATOCRIT 25.6 % (36.0-48.0); HEMOGLOBIN 8.2 g/dL (12.0-16.0); IMMATURE GRANULOCYTES 1.2 %; IMMATURE GRANULOCYTES ABSOLUTE 0.13 10/3/uL (0.0-0.11); LYMPHOCYTES 38.1 %; LYMPHOCYTES ABSOLUTE 3.98 10/3/uL (0.67-4.30); MEAN CORPUSCULAR HEMOGLOB 27.8 pg (26.0-34.0); MEAN CORPUSCULAR VOLUME 86.8 fL (80-100); MEAN PLATELET VOLUME 9.5 fL (9.2-13.0); MONOCYTES 11.3 %; MONOCYTES ABSOLUTE 1.18 10/3/uL (0.21-1.20); NEUTROPHILS 47.5 %; NEUTROPHILS ABSOLUTE 4.95 10/3/uL (2.02-8.40); PLATELET COUNT 447 10/3/uL (150-400); RBC DISTRIBUTION WIDTH 16.9 % (12.0-16.0); RED CELL COUNT 2.95 10/6/uL (4.0-5.6); WHITE BLOOD CELLS 10.4 10/3/uL (4.5-10.5)
[2017-01-23 05:25] LABS: MANUAL DIFF NO %
[2017-01-23 05:41] LABS: BUN (BLOOD UREA NITROGEN) 7 MG/DL (6-23); CALCIUM, SERUM 7.3 MG/DL (8.5-10.4); CHLORIDE, SERUM 102 MMOL/L (96-112); CO2 (CARBON DIOXIDE) 24 MMOL/L (24-34); CREATININE 0.33 MG/DL (0.55-1.02); GFR AFRICAN AMERICAN 129 ML/MIN (>=60); GFR NON AFRICAN AMERICAN 112 ML/MIN (>=60); GLUCOSE, SERUM 99 MG/DL (60-99); POTASSIUM, SERUM 3.8 MMOL/L (3.5-5.3); SODIUM, SERUM 133 MMOL/L (135-148)
[2017-01-24 06:20] LABS: BASOPHILS 0.5 %; BASOPHILS ABSOLUTE 0.05 10/3/uL (0.0-0.16); HEMATOCRIT 25.6 % (36.0-48.0); HEMOGLOBIN 8.2 g/dL (12.0-16.0); LYMPHOCYTES 39.5 %; LYMPHOCYTES ABSOLUTE 3.97 10/3/uL (0.67-4.30); MEAN CORPUSCULAR HEMOGLOB 27.3 pg (26.0-34.0); MEAN CORPUSCULAR VOLUME 85.3 fL (80-100); MEAN PLATELET VOLUME 10.1 fL (9.2-13.0); MONOCYTES 11.4 %; MONOCYTES ABSOLUTE 1.15 10/3/uL (0.21-1.20); NEUTROPHILS 45.6 %; NEUTROPHILS ABSOLUTE 4.58 10/3/uL (2.02-8.40); PLATELET COUNT 456 10/3/uL (150-400); RBC DISTRIBUTION WIDTH 16.5 % (12.0-16.0); WHITE BLOOD CELLS 10.1 10/3/uL (4.5-10.5)
[2017-01-24 06:21] LABS: MANUAL DIFF NO %
[2017-01-24 06:31] LABS: BUN (BLOOD UREA NITROGEN) 7 MG/DL (6-23); CALCIUM, SERUM 7.4 MG/DL (8.5-10.4); CHLORIDE, SERUM 100 MMOL/L (96-112); CO2 (CARBON DIOXIDE) 25 MMOL/L (24-34); CREATININE 0.26 MG/DL (0.55-1.02); GFR AFRICAN AMERICAN 140 ML/MIN (>=60); GFR NON AFRICAN AMERICAN 121 ML/MIN (>=60); GLUCOSE, SERUM 113 MG/DL (60-99); POTASSIUM, SERUM 3.7 MMOL/L (3.5-5.3); SODIUM, SERUM 133 MMOL/L (135-148)
[2017-01-25 07:02] LABS: BASOPHILS 0.5 %; BASOPHILS ABSOLUTE 0.05 10/3/uL (0.0-0.16); EOSINOPHILS ABSOLUTE 0.09 10/3/uL (0.0-0.53); HEMATOCRIT 25.5 % (36.0-48.0); HEMOGLOBIN 8.1 g/dL (12.0-16.0); IMMATURE GRANULOCYTES 2.6 %; IMMATURE GRANULOCYTES ABSOLUTE 0.24 10/3/uL (0.0-0.11); LYMPHOCYTES 39.1 %; LYMPHOCYTES ABSOLUTE 3.64 10/3/uL (0.67-4.30); MEAN CORPUS HGB CONC 31.8 g/dL (32.0-36.0); MEAN CORPUSCULAR HEMOGLOB 27.1 pg (26.0-34.0); MEAN CORPUSCULAR VOLUME 85.3 fL (80-100); MEAN PLATELET VOLUME 9.9 fL (9.2-13.0); MONOCYTES ABSOLUTE 1.02 10/3/uL (0.21-1.20); NEUTROPHILS 45.8 %; NEUTROPHILS ABSOLUTE 4.27 10/3/uL (2.02-8.40); PLATELET COUNT 466 10/3/uL (150-400); RBC DISTRIBUTION WIDTH 16.6 % (12.0-16.0); RED CELL COUNT 2.99 10/6/uL (4.0-5.6); WHITE BLOOD CELLS 9.3 10/3/uL (4.5-10.5)
[2017-01-25 07:03] LABS: MANUAL DIFF NO %
[2017-01-25 07:17] LABS: BUN (BLOOD UREA NITROGEN) 7 MG/DL (6-23); CALCIUM, SERUM 7.4 MG/DL (8.5-10.4); CHLORIDE, SERUM 101 MMOL/L (96-112); CO2 (CARBON DIOXIDE) 26 MMOL/L (24-34); CREATININE 0.35 MG/DL (0.55-1.02); GFR AFRICAN AMERICAN 127 ML/MIN (>=60); GFR NON AFRICAN AMERICAN 109 ML/MIN (>=60); GLUCOSE, SERUM 114 MG/DL (60-99); POTASSIUM, SERUM 3.4 MMOL/L (3.5-5.3); SODIUM, SERUM 133 MMOL/L (135-148)
[2017-01-26 05:43] LABS: BUN (BLOOD UREA NITROGEN) 7 MG/DL (6-23); CALCIUM, SERUM 7.7 MG/DL (8.5-10.4); CHLORIDE, SERUM 100 MMOL/L (96-112); CO2 (CARBON DIOXIDE) 24 MMOL/L (24-34); CREATININE 0.27 MG/DL (0.55-1.02); GFR AFRICAN AMERICAN 138 ML/MIN (>=60); GFR NON AFRICAN AMERICAN 119 ML/MIN (>=60); GLUCOSE, SERUM 102 MG/DL (60-99); POTASSIUM, SERUM 3.6 MMOL/L (3.5-5.3); SODIUM, SERUM 132 MMOL/L (135-148)
[2017-01-27 05:43] LABS: BASOPHILS 0.6 %; BASOPHILS ABSOLUTE 0.05 10/3/uL (0.0-0.16); EOSINOPHILS 1.7 %; EOSINOPHILS ABSOLUTE 0.14 10/3/uL (0.0-0.53); HEMATOCRIT 24.4 % (36.0-48.0); HEMOGLOBIN 7.8 g/dL (12.0-16.0); IMMATURE GRANULOCYTES 1.1 %; IMMATURE GRANULOCYTES ABSOLUTE 0.09 10/3/uL (0.0-0.11); LYMPHOCYTES 50.6 %; LYMPHOCYTES ABSOLUTE 4.15 10/3/uL (0.67-4.30); MEAN CORPUSCULAR HEMOGLOB 27.5 pg (26.0-34.0); MEAN CORPUSCULAR VOLUME 85.9 fL (80-100); MEAN PLATELET VOLUME 10.2 fL (9.2-13.0); MONOCYTES 7.9 %; MONOCYTES ABSOLUTE 0.65 10/3/uL (0.21-1.20); NEUTROPHILS 38.1 %; NEUTROPHILS ABSOLUTE 3.12 10/3/uL (2.02-8.40); PLATELET COUNT 482 10/3/uL (150-400); RBC DISTRIBUTION WIDTH 16.4 % (12.0-16.0); RED CELL COUNT 2.84 10/6/uL (4.0-5.6); WHITE BLOOD CELLS 8.2 10/3/uL (4.5-10.5)
[2017-01-27 05:50] LABS: MANUAL DIFF NO %
[2017-01-27 06:03] LABS: A/G RATIO 0.3 (0.7-1.9); ALBUMIN 1.3 G/DL (3.5-5.0); BUN (BLOOD UREA NITROGEN) 8 MG/DL (6-23); CALCIUM, SERUM 7.7 MG/DL (8.5-10.4); CHLORIDE, SERUM 101 MMOL/L (96-112); CO2 (CARBON DIOXIDE) 25 MMOL/L (24-34); CREATININE 0.29 MG/DL (0.55-1.02); GFR AFRICAN AMERICAN 135 ML/MIN (>=60); GFR NON AFRICAN AMERICAN 116 ML/MIN (>=60); GLOBULIN 3.8 G/DL (2.5-4.1); GLUCOSE, SERUM 84 MG/DL (60-99); POTASSIUM, SERUM 3.4 MMOL/L (3.5-5.3); SGOT(AST) 26 U/L (5-40); SGPT(ALT) 16 U/L (5-65); SODIUM, SERUM 134 MMOL/L (135-148); TOTAL BILIRUBIN 0.5 MG/DL (0-1.2); TOTAL PROTEIN 5.1 G/DL (6.0-8.5)
[2017-01-27 06:05] LABS: ALKALINE PHOSPHATASE 98 U/L (45-117)
[2017-01-28 06:16] LABS: BUN (BLOOD UREA NITROGEN) 8 MG/DL (6-23); CHLORIDE, SERUM 100 MMOL/L (96-112); CO2 (CARBON DIOXIDE) 22 MMOL/L (24-34); CREATININE 0.31 MG/DL (0.55-1.02); GFR AFRICAN AMERICAN 132 ML/MIN (>=60); GFR NON AFRICAN AMERICAN 114 ML/MIN (>=60); GLUCOSE, SERUM 100 MG/DL (60-99); SODIUM, SERUM 132 MMOL/L (135-148)
[2017-01-28 06:18] LABS: POTASSIUM, SERUM 4.6 MMOL/L (3.5-5.3)
[2017-01-28 06:50] LABS: HEMATOCRIT 25.8 % (36.0-48.0); HEMOGLOBIN 8.5 g/dL (12.0-16.0); MEAN CORPUS HGB CONC 32.8 g/dL (32.0-36.0); MEAN CORPUSCULAR HEMOGLOB 28.1 pg (26.0-34.0); MEAN CORPUSCULAR VOLUME 85.6 fL (80-100); MEAN PLATELET VOLUME 9.4 fL (6.8-10.8); PLATELET COUNT 418 10/3/uL (150-400); RBC DISTRIBUTION WIDTH 16.7 % (12.0-16.0); RED CELL COUNT 3.01 10/6/uL (4.0-5.6); WHITE BLOOD CELLS 9.4 10/3/uL (4.5-10.5)
[2017-01-28 06:54] LABS: MANUAL DIFF YES %
[2017-01-28 07:55] LABS: EOSINOPHILS 1 %; EOSINOPHILS ABSOLUTE (CALC) 0.09 10/3/uL (0.0-0.53); LYMPHOCYTES 34 %; MONOCYTES 4 %; MONOCYTES ABSOLUTE (CALC) 0.38 10/3/uL (0.21-1.20); NEUTROPHILS ABSOLUTE (CALC) 5.73 10/3/uL (2.02-8.40); PLATELET ESTIMATE SLT INC (ADEQUATE); SEGMENTED NEUTROPHIL (0) 61 %; TOTAL NUCLEATED CELLS 100
[2017-01-28 07:56] LABS: RBC MORPHOLOGY NORM (NORMAL)
[2017-02-03] MEDS ORDERED: ALBUTEROL0.083 % INH ×2 (19:29→19:31)
[2017-02-03] MEDS ORDERED: COREG6 PO (19:30)
[2017-02-03] MEDS ORDERED: PROTONIX PO (19:30)
[2017-02-03] MEDS ORDERED: MELA3 PO (19:31)
[2017-02-03] MEDS ORDERED: GENAHIST PO (19:31)
[2017-02-03] MEDS ORDERED: ZOFRANODT8 PO (19:32)
[2017-02-03] MEDS ORDERED: LEVOTHYROXIN150 MCG PO (19:32)
[2017-02-03] MEDS ORDERED: ATIVAN2 MG PO (19:32)
[2017-02-03] MEDS ORDERED: ATV.5 PO (19:32)
[2017-02-03] MEDS ORDERED: NORCO1 TA1 PO (19:33)
[2017-03-07] MEDS ORDERED: MELA3 PO (23:10)
[2017-03-07] MEDS ORDERED: SYN.15 PO (23:11)
[2017-03-07] MEDS ORDERED: PROTONIX PO (23:11)
[2017-03-07] MEDS ORDERED: ACIDOPHILU2 PO (23:12)
[2017-03-07] MEDS ORDERED: VITC500 PO (23:12)
[2017-03-07] MEDS ORDERED: ALBUTEROL0.083 % INH ×2 (23:12→23:20)
[2017-03-07] MEDS ORDERED: CONSTULOSE PO (23:13)
[2017-03-07] MEDS ORDERED: DSS PO (23:14)
[2017-03-07] MEDS ORDERED: COREG6 PO (23:14)
[2017-03-07] MEDS ORDERED: FLONASE NAS (23:15)
[2017-03-07] MEDS ORDERED: MULTIVIT/MIN PO (23:15)
[2017-03-07] MEDS ORDERED: T PO (23:20)
[2017-03-07] MEDS ORDERED: ATV.5 PO (23:21)
== END 2017-01-28 19:17 | DRG 405 ==
LOC: SDC/OF 05:25 → MIC 18:23 → 5SO 12-24 11:02
PROVIDERS: Internal Medicine; Internal Medicine Critical Care Medicine; Internal Medicine Infectious Disease; Internal Medicine Pulmonary Disease; Specialist; Surgery
PROC: 06B Lower Veins, Excision (ICD-10-PCS; 2016-11-25)
PROC: 06R Lower Veins, Replacement (ICD-10-PCS; 2016-11-25)
PROC: 5A1945Z Respiratory Ventilation, 24-96 Consecutive Hours (ICD-10-PCS; 2016-11-25)
PROC: 0BH17EZ Insertion of Endotracheal Airway into Trachea, Via Natural or Artificial Opening (ICD-10-PCS; 2016-11-25)
PROC: 0FBG0ZZ Excision of Pancreas, Open Approach (ICD-10-PCS; principal; 2016-11-25 07:45)
PROC: 0DB90ZZ Excision of Duodenum, Open Approach (ICD-10-PCS; 2016-11-25 07:45)
PROC: 07TP0ZZ Resection of Spleen, Open Approach (ICD-10-PCS; 2016-11-25 07:45)
PROC: 3E0S3GC Introduction of Other Therapeutic Substance into Epidural Space, Percutaneous Approach (ICD-10-PCS; 2016-11-26)
PROC: 02HV33Z Insertion of Infusion Device into Superior Vena Cava, Percutaneous Approach (ICD-10-PCS; 2016-11-27)
PROC: 4A02X4A Measurement of Cardiac Electrical Activity, Guidance, External Approach (ICD-10-PCS; 2016-11-27)
PROC: 02HV33Z Insertion of Infusion Device into Superior Vena Cava, Percutaneous Approach (ICD-10-PCS; 2016-11-28)
PROC: 4A02X4A Measurement of Cardiac Electrical Activity, Guidance, External Approach (ICD-10-PCS; 2016-11-28)
PROC: 3E0436Z Introduction of Nutritional Substance into Central Vein, Percutaneous Approach (ICD-10-PCS; 2016-11-28)
PROC: 0W9F30Z Drainage of Abdominal Wall with Drainage Device, Percutaneous Approach (ICD-10-PCS; 2016-12-04)
PROC: 0W9G30Z Drainage of Peritoneal Cavity with Drainage Device, Percutaneous Approach (ICD-10-PCS; 2016-12-10)
PROC: 0W9F30Z Drainage of Abdominal Wall with Drainage Device, Percutaneous Approach (ICD-10-PCS; 2016-12-16)
PROC: 0W9F30Z Drainage of Abdominal Wall with Drainage Device, Percutaneous Approach (ICD-10-PCS; 2016-12-20)
PROC: 0W9F30Z Drainage of Abdominal Wall with Drainage Device, Percutaneous Approach (ICD-10-PCS; 2016-12-24)
PROC: 0W9F30Z Drainage of Abdominal Wall with Drainage Device, Percutaneous Approach (ICD-10-PCS; 2016-12-31)
PROC: 0W9F30Z Drainage of Abdominal Wall with Drainage Device, Percutaneous Approach (ICD-10-PCS; 2017-01-01)
PROC: 3E0H3KZ Introduction of Other Diagnostic Substance into Lower GI, Percutaneous Approach (ICD-10-PCS; 2017-01-06)
PROC: 0W9G30Z Drainage of Peritoneal Cavity with Drainage Device, Percutaneous Approach (ICD-10-PCS; 2017-01-07)
PROC: 0D2DXUZ Change Feeding Device in Lower Intestinal Tract, External Approach (ICD-10-PCS; 2017-01-15)
PROC: 0W9B30Z Drainage of Left Pleural Cavity with Drainage Device, Percutaneous Approach (ICD-10-PCS; 2017-01-20)
DX: C25.0 Malignant neoplasm of head of pancreas (principal); T81.19XA Other postprocedural shock, initial encounter; N17.0 Acute kidney failure with tubular necrosis; J96.01 Acute respiratory failure with hypoxia; R65.21 Severe sepsis with septic shock; J15.0 Pneumonia due to Klebsiella pneumoniae; A41.9 Sepsis, unspecified organism; G93.40 Encephalopathy, unspecified; J90 Pleural effusion, not elsewhere classified; K91.62 Intraoperative hemorrhage and hematoma of a digestive system organ or structure complicating other procedure; D62 Acute posthemorrhagic anemia; E87.2 Acidosis; K94.13 Enterostomy malfunction; E46 Unspecified protein-calorie malnutrition; I10 Essential (primary) hypertension; Z88.8 Allergy status to other drugs, medicaments and biological substances; Z88.5 Allergy status to narcotic agent; Z88.1 Allergy status to other antibiotic agents; Z79.899 Other long term (current) drug therapy; Z79.82 Long term (current) use of aspirin; Z90.710 Acquired absence of both cervix and uterus; Z98.890 Other specified postprocedural states; Z92.21 Personal history of antineoplastic chemotherapy; Z92.3 Personal history of irradiation; Z90.49 Acquired absence of other specified parts of digestive tract; Z82.49 Family history of ischemic heart disease and other diseases of the circulatory system; Z83.3 Family history of diabetes mellitus; E03.9 Hypothyroidism, unspecified; N61.0 Mastitis without abscess
CPT/HCPCS: 31720; 32555; 36415; 36569; 36600; 49083; 49418; 49423; 49424; 49451; 49465; 71010; 71020; 74000; 74020; 74176; 74245; 75984; 76080; 76536; 76700; 80048; 80053; 80069; 80076; 80202; 81001; 82140; 82150; 82330; 82533; 82805; 82945; 82947; 82962; 83036; 83605; 83615; 83690; 83735; 83986; 84100; 84132; 84134; 84145; 84157; 84439; 84443; 84478; 84481; 85014; 85018; 85025; 85049; 85379; 85384; 85610; 85730; 86850; 86900; 86901; 86920; 87040; 87070; 87075; 87077; 87102; 87186; 87205; 87641; 88112; 88305; 88307; 88309; 88331; 88332; 89051; 93005; 93970; 93971; 93975; 94002; 94003; 94640; 94660; 97110-GO; 97110-GP; 97116-GP; 97163-GP; 97164-GP; 97167-GO; 97168-GO; 97530-GO; 97530-GP; 97535-GO; 99152; 99153; A9270-GY; C1729; C1751; C1768; C1769; C1894; C9113; G8978-CK-GP; G8978-CM-GP; G8979-CH-GP; G8979-CI-GP; G8979-CJ-GP; G8979-CK-GP; G8987-CK-GO; G8988-CJ-GO; J0610; J0690; J1170; J1720; J1940; J2185; J2248; J2250; J2370; J2405; J2543; J2550; J2765; J3010; J3260; J3370; J3475; P9016; P9035; P9045; P9047; P9059; Q9966; Q9967